=== PATIENT | male | born 1945 | race Caucasian/White ===

== ENCOUNTER 2024-05-27 18:05 | Emergency (ER) | payer OTHER ==
--- OUTSIDE RECORDS SUMMARY | 2024-05-27 18:18 | XMS REPORT | Continuity of Care Document ---
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 Inhale 0.63 mg 3 (three) times daily as needed for Wheezing or Shortness of Breath. [facility] ipratropium 0.02 % nebulizer solution 01-16 00:00: 00 Yes [id number] USE 1 VIAL VIA NEBULIZER EVERY 4 HOURS NEEDED FOR WHEEZING OR SHORTNESS OF BREATH [facility] 01-16 00:00: 00 11-03 00:00 :00 No [id number] Pt needs nebulizer accessory, please provide what he needs. rod have him bring in the machine to show you which part he needs. [facility] Nebulizer Accessories Kit 12-12 00:00: 00 Yes [id number] Use as directed [facility] Nebulizer Accessories Kit 12-12 00:00: 00 Yes [id number] Use as directed [facility] atorvastati n 20 mg tablet 09-23 00:00: 00 06-21 00:00 :00 No [id number] 9100 20mg Take 1 tablet by mouth daily. [facility] apixaban 5 mg tablet 09-23 00:00: 00 01-09 00:00 :00 No [id number] 5mg Take 1 tablet by mouth 2 (two) times daily. Indication s: atrial fibrillati on, heart failure [facility] sotaloL 80 mg tablet 09-14 00:00: 00 01-09 00:00 :00 No [id number] 40mg Take 0.5 tablets by mouth every 12 (twelve) hours. [facility] tamsulosin 0.4 mg 24 hr capsule 2-08 00:00: 00 12-01 00:00 :00 No [id number] .8mg Take 2 capsules by mouth at bedtime. [facility] umeclidinmanuelu m (INCRUSE ELLIPTA) 62.5 mcg/actuati on DsDv - 00:00: 00 08-25 00:00 :00 No [id number] 1{puff} Take 1 Puff by mouth daily. [facility] albuterol (VENTOLIN HFA) 90 mcg/actuati on inhaler 07-27 00:00: 00 07-31 00:00 :00 No [id number] 1{puff} Inhale 1 Puff every 6 (six) hours as needed for Wheezing or Shortness of Breath. DX: J42 [facility] nortriptyli ne 75 mg capsule 07-27 00:00: 00 07-31 00:00 :00 No [id number] TAKE ONE CAPSULE BY MOUTH AT BEDTIME [facility] furosemide 40 mg tablet 03-02 00:00: 00 06-09 00:00 :00 No [id number] 60mg Take 1.5 tablets by mouth daily. [facility] fluticasone propionate (FLONASE) 50 mcg/actuati on nasal spray 02-22 00:00: 00 12-01 00:00 :00 No [id number] 2{spray } Use 2 Sprays in each nostril daily. [facility] IPRATROPIUM 0.02 % nebulizer solution 09-16 00:00: 00 01-16 00:00 :00 No [id number] USE 1 VIAL VIA NEBULIZER EVERY 4 HOURS NEEDED FOR WHEEZING OR SHORTNESS OF BREATH [facility] IBUPROFEN 600 mg tablet 09-16 00:00: 00 12-01 00:00 :00 No [id number] TAKE 1 TABLET BY MOUTH EVERY 6 HOURS NEEDED FOR PAIN (SCALE 4-6) [facility] albuterol 2.5 mg /3 mL (0.083 %) nebulizer solution 08-19 00:00: 00 01-24 00:00 :00 No [id number] 2.5mg Inhale 3 mL every 4 (four) hours as needed for Wheezing or Shortness of Breath. [facility] budesonide 0.5 mg/2 mL nebulizer solution 2018-07 0 00:00: 00 Yes [id number] 1mg Inhale 4 mL daily. [facility] fluticasone 500 mcg-salmete rol 50 mcg/dose blistr powdr for inhalation 02-05 00:00: 00 Yes 1mcg/do se Umesh Melchor Ventolin HFA 90 mcg/actuati on aerosol inhaler 02-05 00:00: 00 Yes 1mcg/ac tuation Umesh Melchor mupirocin 2 % topical ointment 02-05 00:00: 00 Yes 1% Umesh Melchor Dose Unknown 02-05 00:00: 00 Yes Umesh Melchor amiodarone 200 mg tablet 02-05 00:00: 00 Yes 1mg Umesh Melchor atorvastati n 20 mg tablet 02-05 00:00: 00 Yes 1mg Umesh Melchor furosemide 40 mg tablet 02-05 00:00: 00 Yes 1mg Umesh Melchor nortriptyli ne 75 mg capsule 02-05 00:00: 00 Yes 1mg Umesh Melchor tamsulosin 0.4 mg capsule 02-05 00:00: 00 Yes 1mg Umesh Melchor docusate 100 mg capsule 09-05 00:00: 00 Yes 100mg Take 1 capsule by mouth 2 (two) times daily. [facility] [place] [facility] [place] 00:00: 00 Yes [id number] [facility] Nic Patel Long, [facility] 2009-07 00:00: 00 11-03 00:00 :00 No [id number] [facility] Immunizations Ordered Immunization Name Filled Immunization Name Date Status Comments Source Influenza Virus Vaccine,quad Im,preserve Free 65+ (FLUAD) 2023-09-27 00:00:[address] [facility] SARS-COV-2 COVID 19 SCOTT SUCROSE VACCINE 12+, [id number], 0.3 ML (30 MCG), IM PFIZER (GUTIÉRREZ TOP) 2023-09-27 00:00:00 Completed SARS-COV-2 COVID-19 VACCINE 12 YRS+, BIVALENT 0.5ML, IM, (MODERNA BOOSTER) 2022-09-03 00:00:[address] [facility] SARS-COV-2 COVID-19 VACCINE 12 YRS+, BIVALENT 0.5ML, IM, (MODERNA BOOSTER) 2022-09-03 00:00:[address] [facility] SARS-COV-2 COVID-19 VACCINE 12 YRS+, BIVALENT 0.5ML, IM, (MODERNA BOOSTER) 2022-09-03 00:00:[address] [facility] SARS-COV-2 COVID-19 VACCINE 12 YRS+, BIVALENT 0.5ML, IM, (MODERNA BOOSTER) 2022-09-03 00:00:[address] [facility] SARS-COV-2 COVID-19 VACCINE 12 YRS+, BIVALENT 0.5ML, IM, (MODERNA BOOSTER) 2022-09-03 00:00:[address] [facility] SARS-COV-2 COVID-19 VACCINE 12 YRS+, BIVALENT 0.5ML, IM, (MODERNA BOOSTER) 2022-09-03 00:00:[address] [facility] SARS-COV-2 COVID-19 VACCINE 12 YRS+, BIVALENT 0.5ML, IM, (MODERNA) 2022-09-03 00:00:[address] [facility] SARS-COV-2 COVID-19 VACCINE 12 YRS+, BIVALENT 0.5ML, IM, (MODERNA-BLUE TOP) 2022-09-03 00:00:[address] [facility] SARS-COV-2 COVID-19 VACCINE 12 YRS+, BIVALENT 0.5ML, IM, (MODERNA-BLUE TOP) 2022-09-03 00:00:[address] [facility] SARS-COV-2 COVID-19 VACCINE 12 YRS+, BIVALENT 0.5ML, IM, (MODERNA-BLUE TOP) 2022-09-03 00:00:[address] [facility] SARS-COV-2 COVID-19 VACCINE 12 YRS+, BIVALENT 0.5ML, IM, (MODERNA-BLUE TOP) 2022-09-03 00:00:[address] [facility] SARS-COV-2 COVID-19 VACCINE 12 YRS+, BIVALENT 0.5ML, IM, (MODERNA-BLUE TOP) 2022-09-03 00:00:[address] [facility] SARS-COV-2 COVID-19 VACCINE 12 YRS+, BIVALENT 0.5ML, IM, (MODERNA-BLUE TOP) 2022-09-03 00:00:[address] [facility] SARS-COV-2 COVID-19 VACCINE 12 YRS+, BIVALENT 0.5ML, IM, (MODERNA-BLUE TOP) 2022-09-03 00:00:[address] [facility] SARS-COV-2 COVID-19 VACCINE 12 YRS+, BIVALENT 0.5ML, IM, (MODERNA-BLUE TOP) 2022-09-03 00:00:[address] [facility] SARS-COV-2 COVID-19 VACCINE 12 YRS+, BIVALENT 0.5ML, IM, (MODERNA-BLUE TOP) 2022-09-03 00:00:[address] [facility] SARS-COV-2 COVID-19 VACCINE 12 YRS+, BIVALENT 0.5ML, IM, (MODERNA-BLUE TOP) 2022-09-03 00:00:[address] [facility] SARS-COV-2 COVID-19 VACCINE 12 YRS+, BIVALENT 0.5ML, IM, (MODERNA-BLUE TOP) 2022-09-03 00:00:[address] [facility] Influenza Virus Vaccine,quad Im,preserve Free 652022-04-03 00:00:[address] [facility] Influenza Virus Vaccine,quad Im,preserve Free 652022-04-03 00:00:[address] [facility] Influenza Virus Vaccine,quad Im,preserve Free 65+ 2022-04-03 00:00:[address] [facility] Influenza Virus Vaccine,quad Im,preserve Free 652022-04-03 00:00:[address] [facility] Influenza Virus Vaccine,quad Im,preserve Free 652022-04-03 00:00:[address] [facility] Influenza Virus Vaccine,quad Im,preserve Free 652022-04-03 00:00:[address] [facility] Influenza Virus Vaccine,quad Im,preserve Free 652022-04-03 00:00:[address] [facility] Influenza Virus Vaccine,quad Im,preserve Free 65+ 2022-04-03 00:00:[address] [facility] Influenza Virus Vaccine,quad Im,preserve Free 652022-04-03 00:00:[address] [facility] Influenza Virus Vaccine,quad Im,preserve Free 2022-04-03 00:00:[address] [facility] Influenza Virus Vaccine,quad Im,preserve Free 652022-04-03 00:00:[address] [facility] Influenza Virus Vaccine,quad Im,preserve Free 2022-04-03 00:00:[address] [facility] Influenza Virus Vaccine,quad Im,preserve Free 652022-04-03 00:00:[address] [facility] Influenza Virus Vaccine,quad Im,preserve Free 652022-04-03 00:00:[address] [facility] Influenza Virus Vaccine,quad Im,preserve Free 652022-04-03 00:00:[address] [facility] Influenza Virus Vaccine,quad Im,preserve Free 2022-04-03 00:00:[address] [facility] Influenza Virus Vaccine,quad Im,preserve Free 2022-04-03 00:00:[address] [facility] Influenza Virus Vaccine,quad Im,preserve Free 2022-04-03 00:00:[address] [facility] Influenza Virus Vaccine,quad Im,preserve Free 2022-04-03 00:00:[address] [facility] Influenza Virus Vaccine,quad Im,preserve Free 2022-04-03 00:00:[address] [facility] Influenza Virus Vaccine,quad Im,preserve Free 2022-04-03 00:00:[address] [facility] Influenza Virus Vaccine,quad Im,preserve Free 2022-04-03 00:00:[address] [facility] Influenza Virus Vaccine,quad Im,preserve Free 2022-04-03 00:00:[address] [facility] Influenza Virus Vaccine,quad Im,preserve Free 2022-04-03 00:00:[address] [facility] Influenza Virus Vaccine,quad Im,preserve Free 652022-04-03 00:00:[address] [facility] Influenza Virus Vaccine,quad Im,preserve Free 2022-04-03 00:00:[address] [facility] Influenza Virus Vaccine,quad Im,preserve Free 652022-04-03 00:00:[address] [facility] Influenza Virus Vaccine,quad Im,preserve Free 65+ 2022-04-03 00:00:[address] [facility] Influenza Virus Vaccine,quad Im,preserve Free 65+ 2022-04-03 00:00:[address] [facility] Influenza Virus Vaccine,quad Im,preserve Free 65+ 2022-04-03 00:00:[address] [facility] Influenza Virus Vaccine,quad Im,preserve Free 65+ 2022-04-03 00:00:[address] [facility] Influenza Virus Vaccine,quad Im,preserve Free 65+ 2022-04-03 00:00:[address] [facility] Influenza Virus Vaccine,quad Im,preserve Free 65+ 2022-04-03 00:00:[address] [facility] Influenza Virus Vaccine,quad Im,preserve Free 65+ 2022-04-03 00:00:[address] [facility] Influenza Virus Vaccine,quad Im,preserve Free 65+ (FLUAD) 2022-04-03 00:00:[address] [facility] Influenza Virus Vaccine,quad Im,preserve Free 65+ (FLUAD) 2022-04-03 00:00:[address] [facility] Influenza Virus Vaccine,quad Im,preserve Free 65+ (FLUAD) 2022-04-03 00:00:00 Completed SARS-COV-2 COVID-19 MODERNA 0.25ML BOOSTER VACCINE 2022-02-27 00:00:[address] [facility] SARS-COV-2 COVID-19 MODERNA 0.25ML BOOSTER VACCINE 2022-02-27 00:00:[address] [facility] SARS-COV-2 COVID-19 MODERNA 0.25ML BOOSTER VACCINE 2022-02-27 00:00:[address] [facility] SARS-COV-2 COVID-19 MODERNA 0.25ML BOOSTER VACCINE 2022-02-27 00:00:[address] [facility] SARS-COV-2 COVID-19 MODERNA 0.25ML BOOSTER VACCINE 2022-02-27 00:00:[address] [facility] SARS-COV-2 COVID-19 MODERNA 0.25ML BOOSTER VACCINE 2022-02-27 00:00:[address] [facility] SARS-COV-2 COVID-19 MODERNA 0.25ML BOOSTER VACCINE 2022-02-27 00:00:[address] [facility] SARS-COV-2 COVID-19 MODERNA 0.25ML BOOSTER VACCINE 2022-02-27 00:00:[address] [facility] SARS-COV-2 COVID-19 MODERNA 0.25ML BOOSTER VACCINE 2022-02-27 00:00:[address] [facility] SARS-COV-2 COVID-19 MODERNA 0.25ML BOOSTER VACCINE 2022-02-27 00:00:[address] [facility] SARS-COV-2 COVID-19 MODERNA 0.25ML BOOSTER VACCINE 2022-02-27 00:00:[address] [facility] SARS-COV-2 COVID-19 MODERNA 0.25ML BOOSTER VACCINE 2022-02-27 00:00:[address] [facility] SARS-COV-2 COVID-19 MODERNA 0.25ML BOOSTER VACCINE 2022-02-27 00:00:[address] [facility] SARS-COV-2 COVID-19 MODERNA 0.25ML BOOSTER VACCINE 2022-02-27 00:00:[address] [facility] SARS-COV-2 COVID-19 MODERNA 0.25ML BOOSTER VACCINE 2022-02-27 00:00:[address] [facility] SARS-COV-2 COVID-19 MODERNA 0.25ML BOOSTER VACCINE 2022-02-27 00:00:[address] [facility] SARS-COV-2 COVID-19 MODERNA 0.25ML BOOSTER VACCINE 2022-02-27 00:00:[address] [facility] SARS-COV-2 COVID-19 MODERNA 0.25ML BOOSTER VACCINE 2022-02-27 00:00:[address] [facility] SARS-COV-2 COVID-19 MODERNA 0.25ML BOOSTER VACCINE 2022-02-27 00:00:[address] [facility] SARS-COV-2 COVID-19 MODERNA 0.25ML BOOSTER VACCINE 2022-02-27 00:00:[address] [facility] SARS-COV-2 COVID-19 MODERNA 0.25ML BOOSTER VACCINE 2022-02-27 00:00:[address] [facility] SARS-COV-2 COVID-19 MODERNA 0.25ML BOOSTER VACCINE 2022-02-27 00:00:[address] [facility] SARS-COV-2 COVID-19 MODERNA 0.25ML BOOSTER VACCINE 2022-02-27 00:00:[address] [facility] SARS-COV-2 COVID-19 MODERNA 0.25ML BOOSTER VACCINE 2022-02-27 00:00:[address] [facility] SARS-COV-2 COVID-19 MODERNA 0.25ML BOOSTER VACCINE 2022-02-27 00:00:[address] [facility] SARS-COV-2 COVID-19 MODERNA 0.25ML BOOSTER VACCINE 2022-02-27 00:00:[address] [facility] SARS-COV-2 COVID-19 MODERNA 0.25ML BOOSTER VACCINE 2022-02-27 00:00:[address] [facility] SARS-COV-2 COVID-19 MODERNA 0.25ML BOOSTER VACCINE 2022-02-27 00:00:[address] [facility] SARS-COV-2 COVID-19 MODERNA 0.25ML BOOSTER VACCINE 2022-02-27 00:00:[address] [facility] SARS-COV-2 COVID-19 MODERNA 0.25ML BOOSTER VACCINE 2022-02-27 00:00:[address] [facility] SARS-COV-2 COVID-19 MODERNA 0.25ML BOOSTER VACCINE 2022-02-27 00:00:[address] [facility] SARS-COV-2 COVID-19 MODERNA 0.25ML BOOSTER VACCINE 2022-02-27 00:00:[address] [facility] SARS-COV-2 COVID-19 MODERNA 0.25ML BOOSTER VACCINE 2022-02-27 00:00:[address] [facility] SARS-COV-2 COVID-19 MODERNA 0.25ML BOOSTER VACCINE 2022-02-27 00:00:[address] [facility] SARS-COV-2 COVID-19 MODERNA 0.25ML BOOSTER VACCINE 2022-02-27 00:00:[address] [facility] SARS-COV-2 COVID-19 MODERNA 0.25ML BOOSTER VACCINE 2022-02-27 00:00:[address] [facility] SARS-COV-2 COVID-19 MODERNA 0.25ML BOOSTER VACCINE 2022-02-27 00:00:[address] [facility] SARS-COV-2 COVID-19 MODERNA 0.25ML BOOSTER VACCINE 2022-02-27 00:00:[address] [facility] SARS-COV-2 COVID-19 MODERNA 0.25ML BOOSTER VACCINE 2022-02-27 00:00:[address] [facility] SARS-COV-2 COVID-19 MODERNA 0.25ML BOOSTER VACCINE 2022-02-27 00:00:[address] [facility] SARS-COV-2 COVID-19 MODERNA 0.25ML BOOSTER VACCINE 2022-02-27 00:00:[address] [facility] SARS-COV-2 COVID-19 MODERNA 0.25ML BOOSTER VACCINE 2022-02-27 00:00:[address] [facility] SARS-COV-2 COVID-19 MODERNA 0.25ML BOOSTER VACCINE 2022-02-27 00:00:[address] [facility] SARS-COV-2 COVID-19 MODERNA 0.25ML BOOSTER VACCINE 2022-02-27 00:00:[address] [facility] SARS-COV-2 COVID-19 MODERNA 0.25ML BOOSTER VACCINE 2022-02-27 00:00:[address] [facility] SARS-COV-2 COVID-19 MODERNA 0.25ML BOOSTER VACCINE 2022-02-27 00:00:[address] [facility] SARS-COV-2 COVID-19 MODERNA 0.25ML BOOSTER VACCINE 2022-02-27 00:00:[address] [facility] Influenza Virus Vaccine,quad Im,preserve Free 2021-09-11 00:00:[address] [facility] Influenza Virus Vaccine,quad Im,preserve Free 2021-09-11 00:00:[address] [facility] Influenza Virus Vaccine,quad Im,preserve Free + 2021-09-11 00:00:[address] [facility] Influenza Virus Vaccine,quad Im,preserve Free + 2021-09-11 00:00:[address] [facility] Influenza Virus Vaccine,quad Im,preserve Free 652021-09-11 00:00:[address] [facility] Influenza Virus Vaccine,quad Im,preserve Free 652021-09-11 00:00:[address] [facility] Influenza Virus Vaccine,quad Im,preserve Free 652021-09-11 00:00:[address] [facility] Influenza Virus Vaccine,quad Im,preserve Free 652021-09-11 00:00:[address] [facility] Influenza Virus Vaccine,quad Im,preserve Free 652021-09-11 00:00:[address] [facility] Influenza Virus Vaccine,quad Im,preserve Free 652021-09-11 00:00:[address] [facility] Influenza Virus Vaccine,quad Im,preserve Free 652021-09-11 00:00:[address] [facility] Influenza Virus Vaccine,quad Im,preserve Free 652021-09-11 00:00:[address] [facility] Influenza Virus Vaccine,quad Im,preserve Free 2021-09-11 00:00:[address] [facility] Influenza Virus Vaccine,quad Im,preserve Free 652021-09-11 00:00:[address] [facility] Influenza Virus Vaccine,quad Im,preserve Free 652021-09-11 00:00:[address] [facility] Influenza Virus Vaccine,quad Im,preserve Free 652021-09-11 00:00:[address] [facility] Influenza Virus Vaccine,quad Im,preserve Free 652021-09-11 00:00:[address] [facility] Influenza Virus Vaccine,quad Im,preserve Free 652021-09-11 00:00:[address] [facility] Influenza Virus Vaccine,quad Im,preserve Free 652021-09-11 00:00:[address] [facility] Influenza Virus Vaccine,quad Im,preserve Free 652021-09-11 00:00:[address] [facility] Influenza Virus Vaccine,quad Im,preserve Free 652021-09-11 00:00:[address] [facility] Influenza Virus Vaccine,quad Im,preserve Free 652021-09-11 00:00:[address] [facility] Influenza Virus Vaccine,quad Im,preserve Free 652021-09-11 00:00:[address] [facility] Influenza Virus Vaccine,quad Im,preserve Free 652021-09-11 00:00:[address] [facility] Influenza Virus Vaccine,quad Im,preserve Free 65+ 2021-09-11 00:00:[address] [facility] Influenza Virus Vaccine,quad Im,preserve Free 652021-09-11 00:00:[address] [facility] Influenza Virus Vaccine,quad Im,preserve Free 652021-09-11 00:00:[address] [facility] Influenza Virus Vaccine,quad Im,preserve Free 652021-09-11 00:00:[address] [facility] Influenza Virus Vaccine,quad Im,preserve Free 652021-09-11 00:00:[address] [facility] Influenza Virus Vaccine,quad Im,preserve Free 652021-09-11 00:00:[address] [facility] Influenza Virus Vaccine,quad Im,preserve Free 2021-09-11 00:00:[address] [facility] Influenza Virus Vaccine,quad Im,preserve Free 652021-09-11 00:00:[address] [facility] Influenza Virus Vaccine,quad Im,preserve Free 652021-09-11 00:00:[address] [facility] Influenza Virus Vaccine,quad Im,preserve Free 652021-09-11 00:00:[address] [facility] Influenza Virus Vaccine,quad Im,preserve Free 652021-09-11 00:00:[address] [facility] Influenza Virus Vaccine,quad Im,preserve Free 652021-09-11 00:00:[address] [facility] Influenza Virus Vaccine,quad Im,preserve Free 652021-09-11 00:00:[address] [facility] Influenza Virus Vaccine,quad Im,preserve Free 652021-09-11 00:00:[address] [facility] Influenza Virus Vaccine,quad Im,preserve Free 652021-09-11 00:00:[address] [facility] Influenza Virus Vaccine,quad Im,preserve Free 652021-09-11 00:00:[address] [facility] Influenza Virus Vaccine,quad Im,preserve Free 65+ 2021-09-11 00:00:[address] [facility] Influenza Virus Vaccine,quad Im,preserve Free 65+ 2021-09-11 00:00:[address] [facility] Influenza Virus Vaccine,quad Im,preserve Free 65+ 2021-09-11 00:00:[address] [facility] Influenza Virus Vaccine,quad Im,preserve Free 65+ 2021-09-11 00:00:[address] [facility] Influenza Virus Vaccine,quad Im,preserve Free 65+ 2021-09-11 00:00:[address] [facility] Influenza Virus Vaccine,quad Im,preserve Free 65+ 2021-09-11 00:00:[address] [facility] Influenza Virus Vaccine,quad Im,preserve Free 65+ (FLUAD) 2021-09-11 00:00:[address] [facility] Influenza Virus Vaccine,quad Im,preserve Free 65+ (FLUAD) 2021-09-11 00:00:[address] [facility] Influenza Virus Vaccine,quad Im,preserve Free 65+ (FLUAD) 2021-09-11 00:00:[address] [facility] SARS-COV-2 COVID-19 MODERNA 0.25ML BOOSTER VACCINE 2021-05-08 00:00:[address] [facility] SARS-COV-2 COVID-19 MODERNA 0.25ML BOOSTER VACCINE 2021-05-08 00:00:[address] [facility] SARS-COV-2 COVID-19 MODERNA 0.25ML BOOSTER VACCINE 2021-05-08 00:00:[address] [facility] SARS-COV-2 COVID-19 MODERNA 0.25ML BOOSTER VACCINE 2021-05-08 00:00:[address] [facility] SARS-COV-2 COVID-19 MODERNA 0.25ML BOOSTER VACCINE 2021-05-08 00:00:[address] [facility] SARS-COV-2 COVID-19 MODERNA 0.25ML BOOSTER VACCINE 2021-05-08 00:00:[address] [facility] SARS-COV-2 COVID-19 MODERNA 0.25ML BOOSTER VACCINE 2021-05-08 00:00:[address] [facility] SARS-COV-2 COVID-19 MODERNA 0.25ML BOOSTER VACCINE 2021-05-08 00:00:[address] [facility] SARS-COV-2 COVID-19 MODERNA 0.25ML BOOSTER VACCINE 2021-05-08 00:00:[address] [facility] SARS-COV-2 COVID-19 MODERNA 0.25ML BOOSTER VACCINE 2021-05-08 00:00:[address] [facility] SARS-COV-2 COVID-19 MODERNA 0.25ML BOOSTER VACCINE 2021-05-08 00:00:[address] [facility] SARS-COV-2 COVID-19 MODERNA 0.25ML BOOSTER VACCINE 2021-05-08 00:00:[address] [facility] SARS-COV-2 COVID-19 MODERNA 0.25ML BOOSTER VACCINE 2021-05-08 00:00:[address] [facility] SARS-COV-2 COVID-19 MODERNA 0.25ML BOOSTER VACCINE 2021-05-08 00:00:[address] [facility] SARS-COV-2 COVID-19 MODERNA 0.25ML BOOSTER VACCINE 2021-05-08 00:00:[address] [facility] SARS-COV-2 COVID-19 MODERNA 0.25ML BOOSTER VACCINE 2021-05-08 00:00:[address] [facility] SARS-COV-2 COVID-19 MODERNA 0.25ML BOOSTER VACCINE 2021-05-08 00:00:[address] [facility] SARS-COV-2 COVID-19 MODERNA 0.25ML BOOSTER VACCINE 2021-05-08 00:00:[address] [facility] SARS-COV-2 COVID-19 MODERNA 0.25ML BOOSTER VACCINE 2021-05-08 00:00:[address] [facility] SARS-COV-2 COVID-19 MODERNA 0.25ML BOOSTER VACCINE 2021-05-08 00:00:[address] [facility] SARS-COV-2 COVID-19 MODERNA 0.25ML BOOSTER VACCINE 2021-05-08 00:00:[address] [facility] SARS-COV-2 COVID-19 MODERNA 0.25ML BOOSTER VACCINE 2021-05-08 00:00:[address] [facility] SARS-COV-2 COVID-19 MODERNA 0.25ML BOOSTER VACCINE 2021-05-08 00:00:[address] [facility] SARS-COV-2 COVID-19 MODERNA 0.25ML BOOSTER VACCINE 2021-05-08 00:00:[address] [facility] SARS-COV-2 COVID-19 MODERNA 0.25ML BOOSTER VACCINE 2021-05-08 00:00:[address] [facility] SARS-COV-2 COVID-19 MODERNA 0.25ML BOOSTER VACCINE 2021-05-08 00:00:[address] [facility] SARS-COV-2 COVID-19 MODERNA 0.25ML BOOSTER VACCINE 2021-05-08 00:00:[address] [facility] SARS-COV-2 COVID-19 MODERNA 0.25ML BOOSTER VACCINE 2021-05-08 00:00:[address] [facility] SARS-COV-2 COVID-19 MODERNA 0.25ML BOOSTER VACCINE 2021-05-08 00:00:[address] [facility] SARS-COV-2 COVID-19 MODERNA 0.25ML BOOSTER VACCINE 2021-05-08 00:00:[address] [facility] SARS-COV-2 COVID-19 MODERNA 0.25ML BOOSTER VACCINE 2021-05-08 00:00:[address] [facility] SARS-COV-2 COVID-19 MODERNA 0.25ML BOOSTER VACCINE 2021-05-08 00:00:[address] [facility] SARS-COV-2 COVID-19 MODERNA 0.25ML BOOSTER VACCINE 2021-05-08 00:00:[address] [facility] SARS-COV-2 COVID-19 MODERNA 0.25ML BOOSTER VACCINE 2021-05-08 00:00:[address] [facility] SARS-COV-2 COVID-19 MODERNA 0.25ML BOOSTER VACCINE 2021-05-08 00:00:[address] [facility] SARS-COV-2 COVID-19 MODERNA 0.25ML BOOSTER VACCINE 2021-05-08 00:00:[address] [facility] SARS-COV-2 COVID-19 MODERNA 0.25ML BOOSTER VACCINE 2021-05-08 00:00:[address] [facility] SARS-COV-2 COVID-19 MODERNA 0.25ML BOOSTER VACCINE 2021-05-08 00:00:[address] [facility] SARS-COV-2 COVID-19 MODERNA 0.25ML BOOSTER VACCINE 2021-05-08 00:00:[address] [facility] SARS-COV-2 COVID-19 MODERNA 0.25ML BOOSTER VACCINE 2021-05-08 00:00:[address] [facility] SARS-COV-2 COVID-19 MODERNA 0.25ML BOOSTER VACCINE 2021-05-08 00:00:[address] [facility] SARS-COV-2 COVID-19 MODERNA 0.25ML BOOSTER VACCINE 2021-05-08 00:00:[address] [facility] SARS-COV-2 COVID-19 MODERNA 0.25ML BOOSTER VACCINE 2021-05-08 00:00:[address] [facility] SARS-COV-2 COVID-19 MODERNA 0.25ML BOOSTER VACCINE 2021-05-08 00:00:[address] [facility] SARS-COV-2 COVID-19 MODERNA 0.25ML BOOSTER VACCINE 2021-05-08 00:00:[address] [facility] SARS-COV-2 COVID-19 MODERNA 0.25ML BOOSTER VACCINE 2021-05-08 00:00:[address] [facility] SARS-COV-2 COVID-19 MODERNA 0.25ML BOOSTER VACCINE 2021-05-08 00:00:[address] [facility] SARS-COV-2 COVID-19 MODERNA 0.25ML BOOSTER VACCINE 2021-05-08 00:00:[address] [facility] SARS-COV-2 COVID-19 MODERNA 0.25ML BOOSTER VACCINE 2021-05-08 00:00:00 Completed SARS-COV-2 COVID-19 MODERNA VACCINE 2020-08-09 00:00:[address] [facility] SARS-COV-2 COVID-19 MODERNA VACCINE 2020-08-09 00:00:00 Completed [facility] SARS-COV-2 COVID-19 MODERNA VACCINE 2020-08-09 00:00:[address] [facility] SARS-COV-2 COVID-19 MODERNA 12+ YRS VACCINE 2020-08-09 00:00:[address] [facility] SARS-COV-2 COVID-19 MODERNA 12+ YRS VACCINE 2020-08-09 00:00:[address] [facility] SARS-COV-2 COVID-19 MODERNA 12+ YRS VACCINE 2020-08-09 00:00:[address] [facility] SARS-COV-2 COVID-19 MODERNA 12+ YRS VACCINE 2020-08-09 00:00:[address] [facility] SARS-COV-2 COVID-19 MODERNA 12+ YRS VACCINE 2020-08-09 00:00:[address] [facility] SARS-COV-2 COVID-19 MODERNA 12+ YRS VACCINE 2020-08-09 00:00:[address] [facility] SARS-COV-2 COVID-19 MODERNA 12+ YRS VACCINE 2020-08-09 00:00:[address] [facility] SARS-COV-2 COVID-19 MODERNA 12+ YRS VACCINE 2020-08-09 00:00:[address] [facility] SARS-COV-2 COVID-19 MODERNA 12+ YRS VACCINE 2020-08-09 00:00:[address] [facility] SARS-COV-2 COVID-19 MODERNA 12+ YRS VACCINE 2020-08-09 00:00:[address] [facility] SARS-COV-2 COVID-19 MODERNA 12+ YRS VACCINE 2020-08-09 00:00:[address] [facility] SARS-COV-2 COVID-19 MODERNA 12+ YRS VACCINE 2020-08-09 00:00:[address] [facility] SARS-COV-2 COVID-19 MODERNA 12+ YRS VACCINE 2020-08-09 00:00:[address] [facility] SARS-COV-2 COVID-19 MODERNA 12+ YRS VACCINE 2020-08-09 00:00:[address] [facility] SARS-COV-2 COVID-19 MODERNA 12+ YRS VACCINE 2020-08-09 00:00:[address] [facility] SARS-COV-2 COVID-19 MODERNA 12+ YRS VACCINE 2020-08-09 00:00:[address] [facility] SARS-COV-2 COVID-19 MODERNA 12+ YRS VACCINE 2020-08-09 00:00:[address] [facility] SARS-COV-2 COVID-19 MODERNA 12+ YRS VACCINE 2020-08-09 00:00:[address] [facility] SARS-COV-2 COVID-19 MODERNA 12+ YRS VACCINE 2020-08-09 00:00:[address] [facility] SARS-COV-2 COVID-19 MODERNA 12+ YRS VACCINE 2020-08-09 00:00:[address] [facility] SARS-COV-2 COVID-19 MODERNA 12+ YRS VACCINE 2020-08-09 00:00:[address] [facility] SARS-COV-2 COVID-19 MODERNA 12+ YRS VACCINE 2020-08-09 00:00:[address] [facility] SARS-COV-2 COVID-19 MODERNA 12+ YRS VACCINE 2020-08-09 00:00:[address] [facility] SARS-COV-2 COVID-19 MODERNA 12+ YRS VACCINE 2020-08-09 00:00:[address] [facility] SARS-COV-2 COVID-19 MODERNA 12+ YRS VACCINE 2020-08-09 00:00:[address] [facility] SARS-COV-2 COVID-19 MODERNA 12+ YRS VACCINE 2020-08-09 00:00:[address] [facility] SARS-COV-2 COVID-19 MODERNA 12+ YRS VACCINE 2020-08-09 00:00:[address] [facility] SARS-COV-2 COVID-19 MODERNA 12+ YRS VACCINE 2020-08-09 00:00:[address] [facility] SARS-COV-2 COVID-19 MODERNA 12+ YRS VACCINE 2020-08-09 00:00:[address] [facility] SARS-COV-2 COVID-19 MODERNA 12+ YRS VACCINE 2020-08-09 00:00:[address] [facility] SARS-COV-2 COVID-19 MODERNA 12+ YRS VACCINE 2020-08-09 00:00:[address] [facility] SARS-COV-2 COVID-19 MODERNA 12+ YRS VACCINE 2020-08-09 00:00:[address] [facility] SARS-COV-2 COVID-19 MODERNA 12+ YRS VACCINE 2020-08-09 00:00:[address] [facility] SARS-COV-2 COVID-19 MODERNA 12+ YRS VACCINE 2020-08-09 00:00:[address] [facility] SARS-COV-2 COVID-19 MODERNA 12+ YRS VACCINE 2020-08-09 00:00:[address] [facility] SARS-COV-2 COVID-19 MODERNA 12+ YRS VACCINE 2020-08-09 00:00:[address] [facility] SARS-COV-2 COVID-19 MODERNA 12+ YRS VACCINE 2020-08-09 00:00:[address] [facility] SARS-COV-2 COVID-19 MODERNA 12+ YRS VACCINE 2020-08-09 00:00:[address] [facility] SARS-COV-2 COVID-19 MODERNA 12+ YRS VACCINE 2020-08-09 00:00:[address] [facility] SARS-COV-2 COVID-19 MODERNA 12+ YRS VACCINE 2020-08-09 00:00:[address] [facility] SARS-COV-2 COVID-19 MODERNA 12+ YRS VACCINE 2020-08-09 00:00:[address] [facility] SARS-COV-2 COVID-19 MODERNA 12+ YRS VACCINE 2020-08-09 00:00:[address] [facility] SARS-COV-2 COVID-19 MODERNA 12+ YRS VACCINE 2020-08-09 00:00:[address] [facility] SARS-COV-2 COVID-19 MODERNA 12+ YRS VACCINE 2020-08-09 00:00:[address] [facility] SARS-COV-2 COVID-19 MODERNA 12+ YRS VACCINE 2020-08-09 00:00:[address] [facility] SARS-COV-2 COVID-19 MODERNA 12+ YRS VACCINE 2020-08-09 00:00:[address] [facility] SARS-COV-2 COVID-19 MODERNA VACCINE 2020-07-12 00:00:[address] [facility] SARS-COV-2 COVID-19 MODERNA VACCINE 2020-07-12 00:00:[address] [facility] SARS-COV-2 COVID-19 MODERNA VACCINE 2020-07-12 00:00:[address] [facility] SARS-COV-2 COVID-19 MODERNA 12+ YRS VACCINE 2020-07-12 00:00:[address] [facility] SARS-COV-2 COVID-19 MODERNA 12+ YRS VACCINE 2020-07-12 00:00:[address] [facility] SARS-COV-2 COVID-19 MODERNA 12+ YRS VACCINE 2020-07-12 00:00:[address] [facility] SARS-COV-2 COVID-19 MODERNA 12+ YRS VACCINE 2020-07-12 00:00:[address] [facility] SARS-COV-2 COVID-19 MODERNA 12+ YRS VACCINE 2020-07-12 00:00:[address] [facility] SARS-COV-2 COVID-19 MODERNA 12+ YRS VACCINE 2020-07-12 00:00:[address] [facility] SARS-COV-2 COVID-19 MODERNA 12+ YRS VACCINE 2020-07-12 00:00:[address] [facility] SARS-COV-2 COVID-19 MODERNA 12+ YRS VACCINE 2020-07-12 00:00:[address] [facility] SARS-COV-2 COVID-19 MODERNA 12+ YRS VACCINE 2020-07-12 00:00:[address] [facility] SARS-COV-2 COVID-19 MODERNA 12+ YRS VACCINE 2020-07-12 00:00:[address] [facility] SARS-COV-2 COVID-19 MODERNA 12+ YRS VACCINE 2020-07-12 00:00:[address] [facility] SARS-COV-2 COVID-19 MODERNA 12+ YRS VACCINE 2020-07-12 00:00:[address] [facility] SARS-COV-2 COVID-19 MODERNA 12+ YRS VACCINE 2020-07-12 00:00:[address] [facility] SARS-COV-2 COVID-19 MODERNA 12+ YRS VACCINE 2020-07-12 00:00:[address] [facility] SARS-COV-2 COVID-19 MODERNA 12+ YRS VACCINE 2020-07-12 00:00:[address] [facility] SARS-COV-2 COVID-19 MODERNA 12+ YRS VACCINE 2020-07-12 00:00:[address] [facility] SARS-COV-2 COVID-19 MODERNA 12+ YRS VACCINE 2020-07-12 00:00:[address] [facility] SARS-COV-2 COVID-19 MODERNA 12+ YRS VACCINE 2020-07-12 00:00:[address] [facility] SARS-COV-2 COVID-19 MODERNA 12+ YRS VACCINE 2020-07-12 00:00:[address] [facility] SARS-COV-2 COVID-19 MODERNA 12+ YRS VACCINE 2020-07-12 00:00:[address] [facility] SARS-COV-2 COVID-19 MODERNA 12+ YRS VACCINE 2020-07-12 00:00:[address] [facility] SARS-COV-2 COVID-19 MODERNA 12+ YRS VACCINE 2020-07-12 00:00:[address] [facility] SARS-COV-2 COVID-19 MODERNA 12+ YRS VACCINE 2020-07-12 00:00:[address] [facility] SARS-COV-2 COVID-19 MODERNA 12+ YRS VACCINE 2020-07-12 00:00:[address] [facility] SARS-COV-2 COVID-19 MODERNA 12+ YRS VACCINE 2020-07-12 00:00:[address] [facility] SARS-COV-2 COVID-19 MODERNA 12+ YRS VACCINE 2020-07-12 00:00:[address] [facility] SARS-COV-2 COVID-19 MODERNA 12+ YRS VACCINE 2020-07-12 00:00:[address] [facility] SARS-COV-2 COVID-19 MODERNA 12+ YRS VACCINE 2020-07-12 00:00:[address] [facility] SARS-COV-2 COVID-19 MODERNA 12+ YRS VACCINE 2020-07-12 00:00:[address] [facility] SARS-COV-2 COVID-19 MODERNA 12+ YRS VACCINE 2020-07-12 00:00:[address] [facility] SARS-COV-2 COVID-19 MODERNA 12+ YRS VACCINE 2020-07-12 00:00:[address] [facility] SARS-COV-2 COVID-19 MODERNA 12+ YRS VACCINE 2020-07-12 00:00:[address] [facility] SARS-COV-2 COVID-19 MODERNA 12+ YRS VACCINE 2020-07-12 00:00:[address] [facility] SARS-COV-2 COVID-19 MODERNA 12+ YRS VACCINE 2020-07-12 00:00:[address] [facility] SARS-COV-2 COVID-19 MODERNA 12+ YRS VACCINE 2020-07-12 00:00:[address] [facility] SARS-COV-2 COVID-19 MODERNA 12+ YRS VACCINE 2020-07-12 00:00:[address] [facility] SARS-COV-2 COVID-19 MODERNA 12+ YRS VACCINE 2020-07-12 00:00:[address] [facility] SARS-COV-2 COVID-19 MODERNA 12+ YRS VACCINE 2020-07-12 00:00:[address] [facility] SARS-COV-2 COVID-19 MODERNA 12+ YRS VACCINE 2020-07-12 00:00:[address] [facility] SARS-COV-2 COVID-19 MODERNA 12+ YRS VACCINE 2020-07-12 00:00:[address] [facility] SARS-COV-2 COVID-19 MODERNA 12+ YRS VACCINE 2020-07-12 00:00:[address] [facility] SARS-COV-2 COVID-19 MODERNA 12+ YRS VACCINE 2020-07-12 00:00:[address] [facility] SARS-COV-2 COVID-19 MODERNA 12+ YRS VACCINE 2020-07-12 00:00:[address] [facility] SARS-COV-2 COVID-19 MODERNA 12+ YRS VACCINE 2020-07-12 00:00:[address] [facility] SARS-COV-2 COVID-19 MODERNA 12+ YRS VACCINE 2020-07-12 00:00:[address] [facility] SARS-COV-2 COVID-19 MODERNA 12+ YRS VACCINE 2020-07-12 00:00:[address] [facility] Influenza High Dose Quad 2020-06-13 00:00:[address] [facility] Influenza High Dose Quad 2020-06-13 00:00:[address] [facility] Influenza High Dose Quad 2020-06-13 00:00:[address] [facility] Influenza High Dose Quad 2020-06-13 00:00:[address] [facility] Influenza High Dose Quad 2020-06-13 00:00:[address] [facility] Influenza High Dose Quad 2020-06-13 00:00:[address] [facility] Influenza High Dose Quad 2020-06-13 00:00:[address] [facility] Influenza High Dose Quad 2020-06-13 00:00:[address] [facility] Influenza High Dose Quad 2020-06-13 00:00:[address] [facility] Influenza High Dose Quad 2020-06-13 00:00:[address] [facility] Influenza High Dose Quad 2020-06-13 00:00:[address] [facility] Influenza High Dose Quad 2020-06-13 00:00:[address] [facility] Influenza High Dose Quad 2020-06-13 00:00:[address] [facility] Influenza High Dose Quad 2020-06-13 00:00:[address] [facility] Influenza High Dose Quad 2020-06-13 00:00:[address] [facility] Influenza High Dose Quad 2020-06-13 00:00:[address] [facility] Influenza High Dose Quad 2020-06-13 00:00:[address] [facility] Influenza High Dose Quad 2020-06-13 00:00:[address] [facility] Influenza High Dose Quad 2020-06-13 00:00:[address] [facility] Influenza High Dose Quad 2020-06-13 00:00:[address] [facility] Influenza High Dose Quad 2020-06-13 00:00:[address] [facility] Influenza High Dose Quad 2020-06-13 00:00:[address] [facility] Influenza High Dose Quad 2020-06-13 00:00:[address] [facility] Influenza High Dose Quad 2020-06-13 00:00:[address] [facility] Influenza High Dose Quad 2020-06-13 00:00:[address] [facility] Influenza High Dose Quad 2020-06-13 00:00:[address] [facility] Influenza High Dose Quad 2020-06-13 00:00:[address] [facility] Influenza High Dose Quad 2020-06-13 00:00:[address] [facility] Influenza High Dose Quad 2020-06-13 00:00:[address] [facility] Influenza High Dose Quad 2020-06-13 00:00:[address] [facility] Influenza High Dose Quad 2020-06-13 00:00:[address] [facility] Influenza High Dose Quad 2020-06-13 00:00:[address] [facility] Influenza High Dose Quad 2020-06-13 00:00:[address] [facility] Influenza High Dose Quad 2020-06-13 00:00:[address] [facility] Influenza High Dose Quad 2020-06-13 00:00:[address] [facility] Influenza High Dose Quad 2020-06-13 00:00:[address] [facility] Influenza High Dose Quad 2020-06-13 00:00:[address] [facility] Influenza High Dose Quad 2020-06-13 00:00:[address] [facility] Influenza High Dose Quad 2020-06-13 00:00:[address] [facility] Influenza High Dose Quad 2020-06-13 00:00:[address] [facility] Influenza High Dose Quad 2020-06-13 00:00:[address] [facility] Influenza High Dose Quad 2020-06-13 00:00:[address] [facility] Influenza High Dose Quad 2020-06-13 00:00:[address] [facility] Influenza High Dose Quad 2020-06-13 00:00:[address] [facility] Influenza High Dose Quad 2020-06-13 00:00:[address] [facility] Influenza High Dose Quad 2020-06-13 00:00:[address] [facility] Influenza High Dose Quad 2020-06-13 00:00:[address] [facility] Influenza High Dose Quad 2020-06-13 00:00:[address] [facility] Influenza High Dose Quad 2020-06-13 00:00:[address] [facility] Influenza High Dose 2019-06-09 00:00:[address] [facility] Influenza High Dose 2019-06-09 00:00:[address] [facility] Influenza High Dose 2019-06-09 00:00:[address] [facility] Influenza High Dose 2019-06-09 00:00:[address] [facility] Influenza High Dose 2019-06-09 00:00:[address] [facility] Influenza High Dose 2019-06-09 00:00:[address] [facility] Influenza High Dose 2019-06-09 00:00:[address] [facility] Influenza High Dose 2019-06-09 00:00:[address] [facility] Influenza High Dose 2019-06-09 00:00:[address] [facility] Influenza High Dose 2019-06-09 00:00:[address] [facility] Influenza High Dose 2019-06-09 00:00:[address] [facility] Influenza High Dose 2019-06-09 00:00:[address] [facility] Influenza High Dose 2019-06-09 00:00:[address] [facility] Influenza High Dose 2019-06-09 00:00:[address] [facility] Influenza High Dose 2019-06-09 00:00:[address] [facility] Influenza High Dose 2019-06-09 00:00:[address] [facility] Influenza High Dose 2019-06-09 00:00:[address] [facility] Influenza High Dose 2019-06-09 00:00:[address] [facility] Influenza High Dose 2019-06-09 00:00:[address] [facility] Influenza High Dose 2019-06-09 00:00:[address] [facility] Influenza High Dose 2019-06-09 00:00:[address] [facility] Influenza High Dose 2019-06-09 00:00:[address] [facility] Influenza High Dose 2019-06-09 00:00:[address] [facility] Influenza High Dose 2019-06-09 00:00:[address] [facility] Influenza High Dose 2019-06-09 00:00:[address] [facility] Influenza High Dose 2019-06-09 00:00:[address] [facility] Influenza High Dose 2019-06-09 00:00:[address] [facility] Influenza High Dose 2019-06-09 00:00:[address] [facility] Influenza High Dose 2019-06-09 00:00:[address] [facility] Influenza High Dose 2019-06-09 00:00:[address] [facility] Influenza High Dose 2019-06-09 00:00:[address] [facility] Influenza High Dose 2019-06-09 00:00:[address] [facility] Influenza High Dose 2019-06-09 00:00:[address] [facility] Influenza High Dose 2019-06-09 00:00:[address] [facility] Influenza High Dose 2019-06-09 00:00:[address] [facility] Influenza High Dose 2019-06-09 00:00:[address] [facility] Influenza High Dose 2019-06-09 00:00:[address] [facility] Influenza High Dose 2019-06-09 00:00:[address] [facility] Influenza High Dose 2019-06-09 00:00:[address] [facility] Influenza High Dose 2019-06-09 00:00:[address] [facility] Influenza High Dose 2019-06-09 00:00:[address] [facility] Influenza High Dose 2019-06-09 00:00:[address] [facility] Influenza High Dose 2019-06-09 00:00:[address] [facility] Influenza High Dose 2019-06-09 00:00:[address] [facility] Influenza High Dose 2019-06-09 00:00:[address] [facility] Influenza High Dose 2019-06-09 00:00:[address] [facility] Influenza High Dose 2019-06-09 00:00:[address] [facility] Influenza High Dose 2019-06-09 00:00:[address] [facility] Influenza, High-Dose, Trivalent, PF (FLUZONE) 2019-06-09 00:00:[address] [facility] TDAP (ADACEL) VACCINE 2019-02-09 00:00:[address] [facility] TDAP (ADACEL) VACCINE 2019-02-09 00:00:00 Completed [facility] TDAP (ADACEL) VACCINE 2019-02-09 00:00:00 Completed [facility] TDAP (ADACEL) VACCINE 2019-02-09 00:00:00 Completed [facility] TDAP (ADACEL) VACCINE 2019-02-09 00:00:[address] [facility] TDAP (ADACEL) VACCINE 2019-02-09 00:00:[address] [facility] TDAP (ADACEL) VACCINE 2019-02-09 00:00:00 Completed [facility] TDAP (ADACEL) VACCINE 2019-02-09 00:00:[address] [facility] TDAP (ADACEL) VACCINE 2019-02-09 00:00:[address] [facility] TDAP (ADACEL) VACCINE 2019-02-09 00:00:[address] [facility] TDAP (ADACEL) VACCINE 2019-02-09 00:00:[address] [facility] TDAP (ADACEL) VACCINE 2019-02-09 00:00:[address] [facility] TDAP (ADACEL) VACCINE 2019-02-09 00:00:[address] [facility] TDAP (ADACEL) VACCINE 2019-02-09 00:00:[address] [facility] TDAP (ADACEL) VACCINE 2019-02-09 00:00:[address] [facility] TDAP (ADACEL) VACCINE 2019-02-09 00:00:[address] [facility] TDAP (ADACEL) VACCINE 2019-02-09 00:00:00 Completed [facility] TDAP (ADACEL) VACCINE 2019-02-09 00:00:00 Completed [facility] TDAP (ADACEL) VACCINE 2019-02-09 00:00:00 Completed [facility] TDAP (ADACEL) VACCINE 2019-02-09 00:00:00 Completed [facility] TDAP (ADACEL) VACCINE 2019-02-09 00:00:[address] [facility] TDAP (ADACEL) VACCINE 2019-02-09 00:00:00 Completed [facility] TDAP (ADACEL) VACCINE 2019-02-09 00:00:[address] [facility] TDAP (ADACEL) VACCINE 2019-02-09 00:00:00 Completed [facility] TDAP (ADACEL) VACCINE 2019-02-09 00:00:00 Completed [facility] TDAP (ADACEL) VACCINE 2019-02-09 00:00:00 Completed [facility] TDAP (ADACEL) VACCINE 2019-02-09 00:00:00 Completed [facility] TDAP (ADACEL) VACCINE 2019-02-09 00:00:00 Completed [facility] TDAP (ADACEL) VACCINE 2019-02-09 00:00:00 Completed [facility] TDAP (ADACEL) VACCINE 2019-02-09 00:00:[address] [facility] TDAP (ADACEL) VACCINE 2019-02-09 00:00:[address] [facility] TDAP (ADACEL) VACCINE 2019-02-09 00:00:[address] [facility] TDAP (ADACEL) VACCINE 2019-02-09 00:00:[address] [facility] TDAP (ADACEL) VACCINE 2019-02-09 00:00:[address] [facility] TDAP (ADACEL) VACCINE 2019-02-09 00:00:[address] [facility] TDAP (ADACEL) VACCINE 2019-02-09 00:00:00 Completed [facility] TDAP (ADACEL) VACCINE 2019-02-09 00:00:[address] [facility] TDAP (ADACEL) VACCINE 2019-02-09 00:00:00 Completed [facility] TDAP (ADACEL) VACCINE 2019-02-09 00:00:00 Completed [facility] TDAP (ADACEL) VACCINE 2019-02-09 00:00:00 Completed [facility] TDAP (ADACEL) VACCINE 2019-02-09 00:00:00 Completed [facility] TDAP (ADACEL) VACCINE 2019-02-09 00:00:00 Completed [facility] TDAP (ADACEL) VACCINE 2019-02-09 00:00:00 Completed [facility] TDAP (ADACEL) VACCINE 2019-02-09 00:00:00 Completed [facility] TDAP (ADACEL) VACCINE 2019-02-09 00:00:[address] [facility] TDAP (ADACEL) VACCINE 2019-02-09 00:00:[address] [facility] TDAP (ADACEL) VACCINE 2019-02-09 00:00:[address] [facility] TDAP (ADACEL) VACCINE 2019-02-09 00:00:[address] [facility] TDAP (ADACEL) VACCINE 2019-02-09 00:00:[address] [facility] Pneumococcal Polysaccharide, PPSV23 (PNEUMOVAX) 2018-08-14 00:00:[address] [facility] Pneumococcal Polysaccharide, PPSV23 (PNEUMOVAX) 2018-08-14 00:00:[address] [facility] Pneumococcal Polysaccharide, PPSV23 (PNEUMOVAX) 2018-08-14 00:00:[address] [facility] Pneumococcal Polysaccharide, PPSV23 (PNEUMOVAX) 2018-08-14 00:00:[address] [facility] Pneumococcal Polysaccharide, PPSV23 (PNEUMOVAX) 2018-08-14 00:00:[address] [facility] Pneumococcal Polysaccharide, PPSV23 (PNEUMOVAX) 2018-08-14 00:00:[address] [facility] Pneumococcal Polysaccharide, PPSV23 (PNEUMOVAX) 2018-08-14 00:00:[address] [facility] Pneumococcal Polysaccharide, PPSV23 (PNEUMOVAX) 2018-08-14 00:00:[address] [facility] Pneumococcal Polysaccharide, PPSV23 (PNEUMOVAX) 2018-08-14 00:00:[address] [facility] Pneumococcal Polysaccharide, PPSV23 (PNEUMOVAX) 2018-08-14 00:00:[address] [facility] Pneumococcal Polysaccharide, PPSV23 (PNEUMOVAX) 2018-08-14 00:00:[address] [facility] Pneumococcal Polysaccharide, PPSV23 (PNEUMOVAX) 2018-08-14 00:00:[address] [facility] Pneumococcal Polysaccharide, PPSV23 (PNEUMOVAX) 2018-08-14 00:00:[address] [facility] Pneumococcal Polysaccharide, PPSV23 (PNEUMOVAX) 2018-08-14 00:00:[address] [facility] Pneumococcal Polysaccharide, PPSV23 (PNEUMOVAX) 2018-08-14 00:00:[address] [facility] Pneumococcal Polysaccharide, PPSV23 (PNEUMOVAX) 2018-08-14 00:00:[address] [facility] Pneumococcal Polysaccharide, PPSV23 (PNEUMOVAX) 2018-08-14 00:00:[address] [facility] Pneumococcal Polysaccharide, PPSV23 (PNEUMOVAX) 2018-08-14 00:00:[address] [facility] Pneumococcal Polysaccharide, PPSV23 (PNEUMOVAX) 2018-08-14 00:00:[address] [facility] Pneumococcal Polysaccharide, PPSV23 (PNEUMOVAX) 2018-08-14 00:00:[address] [facility] Pneumococcal Polysaccharide, PPSV23 (PNEUMOVAX) 2018-08-14 00:00:[address] [facility] Pneumococcal Polysaccharide, PPSV23 (PNEUMOVAX) 2018-08-14 00:00:[address] [facility] Pneumococcal Polysaccharide, PPSV23 (PNEUMOVAX) 2018-08-14 00:00:[address] [facility] Pneumococcal Polysaccharide, PPSV23 (PNEUMOVAX) 2018-08-14 00:00:[address] [facility] Pneumococcal Polysaccharide, PPSV23 (PNEUMOVAX) 2018-08-14 00:00:[address] [facility] Pneumococcal Polysaccharide, PPSV23 (PNEUMOVAX) 2018-08-14 00:00:[address] [facility] Pneumococcal Polysaccharide, PPSV23 (PNEUMOVAX) 2018-08-14 00:00:[address] [facility] Pneumococcal Polysaccharide, PPSV23 (PNEUMOVAX) 2018-08-14 00:00:[address] [facility] Pneumococcal Polysaccharide, PPSV23 (PNEUMOVAX) 2018-08-14 00:00:[address] [facility] Pneumococcal Polysaccharide, PPSV23 (PNEUMOVAX) 2018-08-14 00:00:[address] [facility] Pneumococcal Polysaccharide, PPSV23 (PNEUMOVAX) 2018-08-14 00:00:[address] [facility] Pneumococcal Polysaccharide, PPSV23 (PNEUMOVAX) 2018-08-14 00:00:[address] [facility] Pneumococcal Polysaccharide, PPSV23 (PNEUMOVAX) 2018-08-14 00:00:[address] [facility] Pneumococcal Polysaccharide, PPSV23 (PNEUMOVAX) 2018-08-14 00:00:[address] [facility] Pneumococcal Polysaccharide, PPSV23 (PNEUMOVAX) 2018-08-14 00:00:[address] [facility] Pneumococcal Polysaccharide, PPSV23 (PNEUMOVAX) 2018-08-14 00:00:[address] [facility] Pneumococcal Polysaccharide, PPSV23 (PNEUMOVAX) 2018-08-14 00:00:[address] [facility] Pneumococcal Polysaccharide, PPSV23 (PNEUMOVAX) 2018-08-14 00:00:[address] [facility] Pneumococcal Polysaccharide, PPSV23 (PNEUMOVAX) 2018-08-14 00:00:[address] [facility] Pneumococcal Polysaccharide, PPSV23 (PNEUMOVAX) 2018-08-14 00:00:[address] [facility] Pneumococcal Polysaccharide, PPSV23 (PNEUMOVAX) 2018-08-14 00:00:[address] [facility] Pneumococcal Polysaccharide, PPSV23 (PNEUMOVAX) 2018-08-14 00:00:[address] [facility] Pneumococcal Polysaccharide, PPSV23 (PNEUMOVAX) 2018-08-14 00:00:[address] [facility] Pneumococcal Polysaccharide, PPSV23 (PNEUMOVAX) 2018-08-14 00:00:[address] [facility] Pneumococcal Polysaccharide, PPSV23 (PNEUMOVAX) 2018-08-14 00:00:[address] [facility] Pneumococcal Polysaccharide, PPSV23 (PNEUMOVAX) 2018-08-14 00:00:[address] [facility] Pneumococcal Polysaccharide, PPSV23 (PNEUMOVAX) 2018-08-14 00:00:[address] [facility] Pneumococcal Polysaccharide, PPSV23 (PNEUMOVAX) 2018-08-14 00:00:[address] [facility] Pneumococcal Polysaccharide, PPSV23 (PNEUMOVAX) 2018-08-14 00:00:00 Completed [facility] High [facility]ose 2018-06-09 00:00:[address] [facility] Influenza High Dose 2018-06-09 00:00:[address] [facility] Influenza High Dose 2018-06-09 00:00:[address] [facility] Influenza High Dose 2018-06-09 00:00:[address] [facility] Influenza High Dose 2018-06-09 00:00:[address] [facility] Influenza High Dose 2018-06-09 00:00:[address] [facility] Influenza High Dose 2018-06-09 00:00:[address] [facility] Influenza High Dose 2018-06-09 00:00:[address] [facility] Influenza High Dose 2018-06-09 00:00:[address] [facility] Influenza High Dose 2018-06-09 00:00:[address] [facility] Influenza High Dose 2018-06-09 00:00:[address] [facility] Influenza High Dose 2018-06-09 00:00:[address] [facility] Influenza High Dose 2018-06-09 00:00:[address] [facility] Influenza High Dose 2018-06-09 00:00:[address] [facility] Influenza High Dose 2018-06-09 00:00:[address] [facility] Influenza High Dose 2018-06-09 00:00:[address] [facility] Influenza High Dose 2018-06-09 00:00:[address] [facility] Influenza High Dose 2018-06-09 00:00:[address] [facility] Influenza High Dose 2018-06-09 00:00:[address] [facility] Influenza High Dose 2018-06-09 00:00:[address] [facility] Influenza High Dose 2018-06-09 00:00:[address] [facility] Influenza High Dose 2018-06-09 00:00:[address] [facility] Influenza High Dose 2018-06-09 00:00:[address] [facility] Influenza High Dose 2018-06-09 00:00:[address] [facility] Influenza High Dose 2018-06-09 00:00:[address] [facility] Influenza High Dose 2018-06-09 00:00:[address] [facility] Influenza High Dose 2018-06-09 00:00:[address] [facility] Influenza High Dose 2018-06-09 00:00:[address] [facility] Influenza High Dose 2018-06-09 00:00:[address] [facility] Influenza High Dose 2018-06-09 00:00:[address] [facility] Influenza High Dose 2018-06-09 00:00:[address] [facility] Influenza High Dose 2018-06-09 00:00:[address] [facility] Influenza High Dose 2018-06-09 00:00:[address] [facility] Influenza High Dose 2018-06-09 00:00:[address] [facility] Influenza High Dose 2018-06-09 00:00:[address] [facility] Influenza High Dose 2018-06-09 00:00:[address] [facility] Influenza High Dose 2018-06-09 00:00:[address] [facility] Influenza High Dose 2018-06-09 00:00:[address] [facility] Influenza High Dose 2018-06-09 00:00:[address] [facility] Influenza High Dose 2018-06-09 00:00:[address] [facility] Influenza High Dose 2018-06-09 00:00:[address] [facility] Influenza High Dose 2018-06-09 00:00:[address] [facility] Influenza High Dose 2018-06-09 00:00:[address] [facility] Influenza High Dose 2018-06-09 00:00:[address] [facility] Influenza High Dose 2018-06-09 00:00:[address] [facility] Influenza High Dose 2018-06-09 00:00:[address] [facility] Influenza High Dose 2018-06-09 00:00:[address] [facility] Influenza High Dose 2018-06-09 00:00:[address] [facility] Influenza, High-Dose, Trivalent, PF (FLUZONE) 2018-06-09 00:00:[address] [facility] Influenza High Dose 2017-06-10 00:00:[address] [facility] Pneumococcal 13 Conjugate, PCV13 (Prevnar 13) 2017-06-10 00:00:[address] [facility] Influenza High Dose 2017-06-10 00:00:[address] [facility] Pneumococcal 13 Conjugate, PCV13 (Prevnar 13) 2017-06-10 00:00:[address] [facility] Influenza High Dose 2017-06-10 00:00:[address] [facility] Pneumococcal 13 Conjugate, PCV13 (Prevnar 13) 2017-06-10 00:00:[address] [facility] Influenza High Dose 2017-06-10 00:00:[address] [facility] Pneumococcal 13 Conjugate, PCV13 (Prevnar 13) 2017-06-10 00:00:[address] [facility] Influenza High Dose 2017-06-10 00:00:[address] [facility] Pneumococcal 13 Conjugate, PCV13 (Prevnar 13) 2017-06-10 00:00:[address] [facility] Influenza High Dose 2017-06-10 00:00:[address] [facility] Pneumococcal 13 Conjugate, PCV13 (Prevnar 13) 2017-06-10 00:00:[address] [facility] Influenza High Dose 2017-06-10 00:00:[address] [facility] Pneumococcal 13 Conjugate, PCV13 (Prevnar 13) 2017-06-10 00:00:[address] [facility] Influenza High Dose 2017-06-10 00:00:[address] [facility] Pneumococcal 13 Conjugate, PCV13 (Prevnar 13) 2017-06-10 00:00:[address] [facility] Influenza High Dose 2017-06-10 00:00:[address] [facility] Pneumococcal 13 Conjugate, PCV13 (Prevnar 13) 2017-06-10 00:00:[address] [facility] Influenza High Dose 2017-06-10 00:00:[address] [facility] Pneumococcal 13 Conjugate, PCV13 (Prevnar 13) 2017-06-10 00:00:[address] [facility] Influenza High Dose 2017-06-10 00:00:[address] [facility] Pneumococcal 13 Conjugate, PCV13 (Prevnar 13) 2017-06-10 00:00:[address] [facility] Influenza High Dose 2017-06-10 00:00:[address] [facility] Pneumococcal 13 Conjugate, PCV13 (Prevnar 13) 2017-06-10 00:00:[address] [facility] Influenza High Dose 2017-06-10 00:00:[address] [facility] Pneumococcal 13 Conjugate, PCV13 (Prevnar 13) 2017-06-10 00:00:[address] [facility] Influenza High Dose 2017-06-10 00:00:[address] [facility] Pneumococcal 13 Conjugate, PCV13 (Prevnar 13) 2017-06-10 00:00:[address] [facility] Influenza High Dose 2017-06-10 00:00:[address] [facility] Pneumococcal 13 Conjugate, PCV13 (Prevnar 13) 2017-06-10 00:00:[address] [facility] Influenza High Dose 2017-06-10 00:00:[address] [facility] Pneumococcal 13 Conjugate, PCV13 (Prevnar 13) 2017-06-10 00:00:[address] [facility] Influenza High Dose 2017-06-10 00:00:[address] [facility] Pneumococcal 13 Conjugate, PCV13 (Prevnar 13) 2017-06-10 00:00:[address] [facility] Influenza High Dose 2017-06-10 00:00:[address] [facility] Pneumococcal 13 Conjugate, PCV13 (Prevnar 13) 2017-06-10 00:00:[address] [facility] Influenza High Dose 2017-06-10 00:00:[address] [facility] Pneumococcal 13 Conjugate, PCV13 (Prevnar 13) 2017-06-10 00:00:[address] [facility] Influenza High Dose 2017-06-10 00:00:[address] [facility] Pneumococcal 13 Conjugate, PCV13 (Prevnar 13) 2017-06-10 00:00:[address] [facility] Influenza High Dose 2017-06-10 00:00:[address] [facility] Pneumococcal 13 Conjugate, PCV13 (Prevnar 13) 2017-06-10 00:00:[address] [facility] Influenza High Dose 2017-06-10 00:00:[address] [facility] Pneumococcal 13 Conjugate, PCV13 (Prevnar 13) 2017-06-10 00:00:[address] [facility] Influenza High Dose 2017-06-10 00:00:[address] [facility] Pneumococcal 13 Conjugate, PCV13 (Prevnar 13) 2017-06-10 00:00:[address] [facility] Influenza High Dose 2017-06-10 00:00:[address] [facility] Pneumococcal 13 Conjugate, PCV13 (Prevnar 13) 2017-06-10 00:00:[address] [facility] Influenza High Dose 2017-06-10 00:00:[address] [facility] Pneumococcal 13 Conjugate, PCV13 (Prevnar 13) 2017-06-10 00:00:[address] [facility] Influenza High Dose 2017-06-10 00:00:[address] [facility] Pneumococcal 13 Conjugate, PCV13 (Prevnar 13) 2017-06-10 00:00:[address] [facility] Influenza High Dose 2017-06-10 00:00:[address] [facility] Pneumococcal 13 Conjugate, PCV13 (Prevnar 13) 2017-06-10 00:00:[address] [facility] Influenza High Dose 2017-06-10 00:00:[address] [facility] Pneumococcal 13 Conjugate, PCV13 (Prevnar 13) 2017-06-10 00:00:[address] [facility] Influenza High Dose 2017-06-10 00:00:[address] [facility] Pneumococcal 13 Conjugate, PCV13 (Prevnar 13) 2017-06-10 00:00:[address] [facility] Influenza High Dose 2017-06-10 00:00:[address] [facility] Pneumococcal 13 Conjugate, PCV13 (Prevnar 13) 2017-06-10 00:00:[address] [facility] Influenza High Dose 2017-06-10 00:00:[address] [facility] Pneumococcal 13 Conjugate, PCV13 (Prevnar 13) 2017-06-10 00:00:[address] [facility] Influenza High Dose 2017-06-10 00:00:[address] [facility] Pneumococcal 13 Conjugate, PCV13 (Prevnar 13) 2017-06-10 00:00:[address] [facility] Influenza High Dose 2017-06-10 00:00:[address] [facility] Pneumococcal 13 Conjugate, PCV13 (Prevnar 13) 2017-06-10 00:00:[address] [facility] Influenza High Dose 2017-06-10 00:00:[address] [facility] Pneumococcal 13 Conjugate, PCV13 (Prevnar 13) 2017-06-10 00:00:[address] [facility] Influenza High Dose 2017-06-10 00:00:[address] [facility] Pneumococcal 13 Conjugate, PCV13 (Prevnar 13) 2017-06-10 00:00:[address] [facility] Influenza High Dose 2017-06-10 00:00:[address] [facility] Pneumococcal 13 Conjugate, PCV13 (Prevnar 13) 2017-06-10 00:00:[address] [facility] Influenza High Dose 2017-06-10 00:00:[address] [facility] Pneumococcal 13 Conjugate, PCV13 (Prevnar 13) 2017-06-10 00:00:[address] [facility] Influenza High Dose 2017-06-10 00:00:[address] [facility] Pneumococcal 13 Conjugate, PCV13 (Prevnar 13) 2017-06-10 00:00:[address] [facility] Influenza High Dose 2017-06-10 00:00:[address] [facility] Pneumococcal 13 Conjugate, PCV13 (Prevnar 13) 2017-06-10 00:00:[address] [facility] Influenza High Dose 2017-06-10 00:00:[address] [facility] Pneumococcal 13 Conjugate, PCV13 (Prevnar 13) 2017-06-10 00:00:[address] [facility] Influenza High Dose 2017-06-10 00:00:[address] [facility] Pneumococcal 13 Conjugate, PCV13 (Prevnar 13) 2017-06-10 00:00:[address] [facility] Influenza High Dose 2017-06-10 00:00:[address] [facility] Pneumococcal 13 Conjugate, PCV13 (Prevnar 13) 2017-06-10 00:00:[address] [facility] Influenza High Dose 2017-06-10 00:00:[address] [facility] Pneumococcal 13 Conjugate, PCV13 (Prevnar 13) 2017-06-10 00:00:[address] [facility] Influenza High Dose 2017-06-10 00:00:[address] [facility] Pneumococcal 13 Conjugate, PCV13 (Prevnar 13) 2017-06-10 00:00:[address] [facility] Influenza High Dose 2017-06-10 00:00:[address] [facility] Pneumococcal 13 Conjugate, PCV13 (Prevnar 13) 2017-06-10 00:00:[address] [facility] Influenza High Dose 2017-06-10 00:00:[address] [facility] Pneumococcal 13 Conjugate, PCV13 (Prevnar 13) 2017-06-10 00:00:[address] [facility] Influenza High Dose 2017-06-10 00:00:[address] [facility] Pneumococcal 13 Conjugate, PCV13 (Prevnar 13) 2017-06-10 00:00:[address] [facility] Influenza High Dose 2017-06-10 00:00:[address] [facility] Pneumococcal 13 Conjugate, PCV13 (Prevnar 13) 2017-06-10 00:00:[address] [facility] Influenza, High-Dose, Trivalent, PF (FLUZONE) 2017-06-10 00:00:[address] [facility] Pneumococcal 13 Conjugate, PCV13 (Prevnar 13) 2017-06-10 00:00:00 Completed [facility] High D[facility] 2016-08-29 00:00:[address] [facility] Influenza High Dose 2016-08-29 00:00:[address] [facility] Influenza High Dose 2016-08-29 00:00:[address] [facility] Influenza High Dose 2016-08-29 00:00:[address] [facility] Influenza High Dose 2016-08-29 00:00:[address] [facility] Influenza High Dose 2016-08-29 00:00:[address] [facility] Influenza High Dose 2016-08-29 00:00:[address] [facility] Influenza High Dose 2016-08-29 00:00:[address] [facility] Influenza High Dose 2016-08-29 00:00:[address] [facility] Influenza High Dose 2016-08-29 00:00:[address] [facility] Influenza High Dose 2016-08-29 00:00:[address] [facility] Influenza High Dose 2016-08-29 00:00:[address] [facility] Influenza High Dose 2016-08-29 00:00:[address] [facility] Influenza High Dose 2016-08-29 00:00:[address] [facility] Influenza High Dose 2016-08-29 00:00:[address] [facility] Influenza High Dose 2016-08-29 00:00:[address] [facility] Influenza High Dose 2016-08-29 00:00:[address] [facility] Influenza High Dose 2016-08-29 00:00:[address] [facility] Influenza High Dose 2016-08-29 00:00:[address] [facility] Influenza High Dose 2016-08-29 00:00:[address] [facility] Influenza High Dose 2016-08-29 00:00:[address] [facility] Influenza High Dose 2016-08-29 00:00:[address] [facility] Influenza High Dose 2016-08-29 00:00:[address] [facility] Influenza High Dose 2016-08-29 00:00:[address] [facility] Influenza High Dose 2016-08-29 00:00:[address] [facility] Influenza High Dose 2016-08-29 00:00:[address] [facility] Influenza High Dose 2016-08-29 00:00:[address] [facility] Influenza High Dose 2016-08-29 00:00:[address] [facility] Influenza High Dose 2016-08-29 00:00:[address] [facility] Influenza High Dose 2016-08-29 00:00:[address] [facility] Influenza High Dose 2016-08-29 00:00:[address] [facility] Influenza High Dose 2016-08-29 00:00:[address] [facility] Influenza High Dose 2016-08-29 00:00:[address] [facility] Influenza High Dose 2016-08-29 00:00:[address] [facility] Influenza High Dose 2016-08-29 00:00:[address] [facility] Influenza High Dose 2016-08-29 00:00:[address] [facility] Influenza High Dose 2016-08-29 00:00:[address] [facility] Influenza High Dose 2016-08-29 00:00:[address] [facility] Influenza High Dose 2016-08-29 00:00:[address] [facility] Influenza High Dose 2016-08-29 00:00:[address] [facility] Influenza High Dose 2016-08-29 00:00:[address] [facility] Influenza High Dose 2016-08-29 00:00:[address] [facility] Influenza High Dose 2016-08-29 00:00:[address] [facility] Influenza High Dose 2016-08-29 00:00:[address] [facility] Influenza High Dose 2016-08-29 00:00:[address] [facility] Influenza High Dose 2016-08-29 00:00:[address] [facility] Influenza High Dose 2016-08-29 00:00:[address] [facility] Influenza High Dose 2016-08-29 00:00:[address] [facility] Influenza, High-Dose, Trivalent, PF (FLUZONE) 2016-08-29 00:00:[address] [facility] Influenza High Dose 2015-08-19 00:00:[address] [facility] Influenza High Dose 2015-08-19 00:00:[address] [facility] Influenza High Dose 2015-08-19 00:00:[address] [facility] Influenza High Dose 2015-08-19 00:00:[address] [facility] Influenza High Dose 2015-08-19 00:00:[address] [facility] Influenza High Dose 2015-08-19 00:00:[address] [facility] Influenza High Dose 2015-08-19 00:00:[address] [facility] Influenza High Dose 2015-08-19 00:00:[address] [facility] Influenza High Dose 2015-08-19 00:00:[address] [facility] Influenza High Dose 2015-08-19 00:00:[address] [facility] Influenza High Dose 2015-08-19 00:00:[address] [facility] Influenza High Dose 2015-08-19 00:00:[address] [facility] Influenza High Dose 2015-08-19 00:00:[address] [facility] Influenza High Dose 2015-08-19 00:00:[address] [facility] Influenza High Dose 2015-08-19 00:00:[address] [facility] Influenza High Dose 2015-08-19 00:00:[address] [facility] Influenza High Dose 2015-08-19 00:00:[address] [facility] Influenza High Dose 2015-08-19 00:00:00 Completed [facility] Influenza High Dose 2015-08-19 00:00:[address] [facility] Influenza High Dose 2015-08-19 00:00:[address] [facility] Influenza High Dose 2015-08-19 00:00:[address] [facility] Influenza High Dose 2015-08-19 00:00:[address] [facility] Influenza High Dose 2015-08-19 00:00:[address] [facility] Influenza High Dose 2015-08-19 00:00:[address] [facility] Influenza High Dose 2015-08-19 00:00:[address] [facility] Influenza High Dose 2015-08-19 00:00:[address] [facility] Influenza High Dose 2015-08-19 00:00:[address] [facility] Influenza High Dose 2015-08-19 00:00:[address] [facility] Influenza High Dose 2015-08-19 00:00:[address] [facility] Influenza High Dose 2015-08-19 00:00:[address] [facility] Influenza High Dose 2015-08-19 00:00:[address] [facility] Influenza High Dose 2015-08-19 00:00:[address] [facility] Influenza High Dose 2015-08-19 00:00:[address] [facility] Influenza High Dose 2015-08-19 00:00:[address] [facility] Influenza High Dose 2015-08-19 00:00:[address] [facility] Influenza High Dose 2015-08-19 00:00:[address] [facility] Influenza High Dose 2015-08-19 00:00:[address] [facility] Influenza High Dose 2015-08-19 00:00:[address] [facility] Influenza High Dose 2015-08-19 00:00:[address] [facility] Influenza High Dose 2015-08-19 00:00:[address] [facility] Influenza High Dose 2015-08-19 00:00:[address] [facility] Influenza High Dose 2015-08-19 00:00:[address] [facility] Influenza High Dose 2015-08-19 00:00:[address] [facility] Influenza High Dose 2015-08-19 00:00:[address] [facility] Influenza High Dose 2015-08-19 00:00:[address] [facility] Influenza High Dose 2015-08-19 00:00:[address] [facility] Influenza High Dose 2015-08-19 00:00:[address] [facility] Influenza High Dose 2015-08-19 00:00:[address] [facility] Influenza, High-Dose, Trivalent, PF (FLUZONE) 2015-08-19 00:00:[address] [facility] Influenza High Dose 2014-07-16 00:00:[address] [facility] Influenza High Dose 2014-07-16 00:00:[address] [facility] Influenza High Dose 2014-07-16 00:00:[address] [facility] Influenza High Dose 2014-07-16 00:00:[address] [facility] Influenza High Dose 2014-07-16 00:00:[address] [facility] Influenza High Dose 2014-07-16 00:00:[address] [facility] Influenza High Dose 2014-07-16 00:00:[address] [facility] Influenza High Dose 2014-07-16 00:00:[address] [facility] Influenza High Dose 2014-07-16 00:00:[address] [facility] Influenza High Dose 2014-07-16 00:00:[address] [facility] Influenza High Dose 2014-07-16 00:00:[address] [facility] Influenza High Dose 2014-07-16 00:00:[address] [facility] Influenza High Dose 2014-07-16 00:00:[address] [facility] Influenza High Dose 2014-07-16 00:00:[address] [facility] Influenza High Dose 2014-07-16 00:00:[address] [facility] Influenza High Dose 2014-07-16 00:00:[address] [facility] Influenza High Dose 2014-07-16 00:00:[address] [facility] Influenza High Dose 2014-07-16 00:00:[address] [facility] Influenza High Dose 2014-07-16 00:00:[address] [facility] Influenza High Dose 2014-07-16 00:00:[address] [facility] Influenza High Dose 2014-07-16 00:00:[address] [facility] Influenza High Dose 2014-07-16 00:00:[address] [facility] Influenza High Dose 2014-07-16 00:00:[address] [facility] Influenza High Dose 2014-07-16 00:00:[address] [facility] Influenza High Dose 2014-07-16 00:00:[address] [facility] Influenza High Dose 2014-07-16 00:00:[address] [facility] Influenza High Dose 2014-07-16 00:00:[address] [facility] Influenza High Dose 2014-07-16 00:00:[address] [facility] Influenza High Dose 2014-07-16 00:00:[address] [facility] Influenza High Dose 2014-07-16 00:00:[address] [facility] Influenza High Dose 2014-07-16 00:00:[address] [facility] Influenza High Dose 2014-07-16 00:00:[address] [facility] Influenza High Dose 2014-07-16 00:00:[address] [facility] Influenza High Dose 2014-07-16 00:00:[address] [facility] Influenza High Dose 2014-07-16 00:00:[address] [facility] Influenza High Dose 2014-07-16 00:00:[address] [facility] Influenza High Dose 2014-07-16 00:00:[address] [facility] Influenza High Dose 2014-07-16 00:00:[address] [facility] Influenza High Dose 2014-07-16 00:00:[address] [facility] Influenza High Dose 2014-07-16 00:00:[address] [facility] Influenza High Dose 2014-07-16 00:00:[address] [facility] Influenza High Dose 2014-07-16 00:00:[address] [facility] Influenza High Dose 2014-07-16 00:00:[address] [facility] Influenza High Dose 2014-07-16 00:00:[address] [facility] Influenza High Dose 2014-07-16 00:00:[address] [facility] Influenza High Dose 2014-07-16 00:00:[address] [facility] Influenza High Dose 2014-07-16 00:00:[address] [facility] Influenza High Dose 2014-07-16 00:00:[address] [facility] Influenza, High-Dose, Trivalent, PF (FLUZONE) 2014-07-16 00:00:[address] [facility] Pneumococcal Polysaccharide, PPSV23 (PNEUMOVAX) 2011-06-13 00:00:[address] [facility] Influenza Virus Vaccine 2011-06-13 00:00:[address] [facility] Pneumococcal Polysaccharide, PPSV23 (PNEUMOVAX) 2011-06-13 00:00:[address] [facility] Influenza Virus Vaccine 2011-06-13 00:00:[address] [facility] Pneumococcal Polysaccharide, PPSV23 (PNEUMOVAX) 2011-06-13 00:00:[address] [facility] Influenza Virus Vaccine 2011-06-13 00:00:[address] [facility] Pneumococcal Polysaccharide, PPSV23 (PNEUMOVAX) 2011-06-13 00:00:[address] [facility] Influenza Virus Vaccine 2011-06-13 00:00:[address] [facility] Pneumococcal Polysaccharide, PPSV23 (PNEUMOVAX) 2011-06-13 00:00:[address] [facility] Influenza Virus Vaccine 2011-06-13 00:00:[address] [facility] Pneumococcal Polysaccharide, PPSV23 (PNEUMOVAX) 2011-06-13 00:00:[address] [facility] Influenza Virus Vaccine 2011-06-13 00:00:[address] [facility] Pneumococcal Polysaccharide, PPSV23 (PNEUMOVAX) 2011-06-13 00:00:[address] [facility] Influenza Virus Vaccine 2011-06-13 00:00:[address] [facility] Pneumococcal Polysaccharide, PPSV23 (PNEUMOVAX) 2011-06-13 00:00:[address] [facility] Influenza Virus Vaccine 2011-06-13 00:00:[address] [facility] Pneumococcal Polysaccharide, PPSV23 (PNEUMOVAX) 2011-06-13 00:00:[address] [facility] Influenza Virus Vaccine 2011-06-13 00:00:[address] [facility] Pneumococcal Polysaccharide, PPSV23 (PNEUMOVAX) 2011-06-13 00:00:[address] [facility] Influenza Virus Vaccine 2011-06-13 00:00:[address] [facility] Pneumococcal Polysaccharide, PPSV23 (PNEUMOVAX) 2011-06-13 00:00:[address] [facility] Influenza Virus Vaccine 2011-06-13 00:00:[address] [facility] Pneumococcal Polysaccharide, PPSV23 (PNEUMOVAX) 2011-06-13 00:00:[address] [facility] Influenza Virus Vaccine 2011-06-13 00:00:[address] [facility] Pneumococcal Polysaccharide, PPSV23 (PNEUMOVAX) 2011-06-13 00:00:[address] [facility] Influenza Virus Vaccine 2011-06-13 00:00:[address] [facility] Pneumococcal Polysaccharide, PPSV23 (PNEUMOVAX) 2011-06-13 00:00:[address] [facility] Influenza Virus Vaccine 2011-06-13 00:00:[address] [facility] Pneumococcal Polysaccharide, PPSV23 (PNEUMOVAX) 2011-06-13 00:00:[address] [facility] Influenza Virus Vaccine 2011-06-13 00:00:[address] [facility] Pneumococcal Polysaccharide, PPSV23 (PNEUMOVAX) 2011-06-13 00:00:[address] [facility] Influenza Virus Vaccine 2011-06-13 00:00:[address] [facility] Pneumococcal Polysaccharide, PPSV23 (PNEUMOVAX) 2011-06-13 00:00:[address] [facility] Influenza Virus Vaccine 2011-06-13 00:00:[address] [facility] Pneumococcal Polysaccharide, PPSV23 (PNEUMOVAX) 2011-06-13 00:00:[address] [facility] Influenza Virus Vaccine 2011-06-13 00:00:[address] [facility] Pneumococcal Polysaccharide, PPSV23 (PNEUMOVAX) 2011-06-13 00:00:[address] [facility] Influenza Virus Vaccine 2011-06-13 00:00:[address] [facility] Pneumococcal Polysaccharide, PPSV23 (PNEUMOVAX) 2011-06-13 00:00:[address] [facility] Influenza Virus Vaccine 2011-06-13 00:00:[address] [facility] Pneumococcal Polysaccharide, PPSV23 (PNEUMOVAX) 2011-06-13 00:00:[address] [facility] Influenza Virus Vaccine 2011-06-13 00:00:[address] [facility] Pneumococcal Polysaccharide, PPSV23 (PNEUMOVAX) 2011-06-13 00:00:[address] [facility] Influenza Virus Vaccine 2011-06-13 00:00:[address] [facility] Pneumococcal Polysaccharide, PPSV23 (PNEUMOVAX) 2011-06-13 00:00:[address] [facility] Influenza Virus Vaccine 2011-06-13 00:00:[address] [facility] Pneumococcal Polysaccharide, PPSV23 (PNEUMOVAX) 2011-06-13 00:00:[address] [facility] Influenza Virus Vaccine 2011-06-13 00:00:[address] [facility] Pneumococcal Polysaccharide, PPSV23 (PNEUMOVAX) 2011-06-13 00:00:[address] [facility] Influenza Virus Vaccine 2011-06-13 00:00:[address] [facility] Pneumococcal Polysaccharide, PPSV23 (PNEUMOVAX) 2011-06-13 00:00:[address] [facility] Influenza Virus Vaccine 2011-06-13 00:00:[address] [facility] Pneumococcal Polysaccharide, PPSV23 (PNEUMOVAX) 2011-06-13 00:00:[address] [facility] Influenza Virus Vaccine 2011-06-13 00:00:[address] [facility] Pneumococcal Polysaccharide, PPSV23 (PNEUMOVAX) 2011-06-13 00:00:[address] [facility] Influenza Virus Vaccine 2011-06-13 00:00:[address] [facility] Pneumococcal Polysaccharide, PPSV23 (PNEUMOVAX) 2011-06-13 00:00:[address] [facility] Influenza Virus Vaccine 2011-06-13 00:00:[address] [facility] Pneumococcal Polysaccharide, PPSV23 (PNEUMOVAX) 2011-06-13 00:00:[address] [facility] Influenza Virus Vaccine 2011-06-13 00:00:[address] [facility] Pneumococcal Polysaccharide, PPSV23 (PNEUMOVAX) 2011-06-13 00:00:[address] [facility] Influenza Virus Vaccine 2011-06-13 00:00:[address] [facility] Pneumococcal Polysaccharide, PPSV23 (PNEUMOVAX) 2011-06-13 00:00:[address] [facility] Influenza Virus Vaccine 2011-06-13 00:00:[address] [facility] Pneumococcal Polysaccharide, PPSV23 (PNEUMOVAX) 2011-06-13 00:00:[address] [facility] Influenza Virus Vaccine 2011-06-13 00:00:[address] [facility] Pneumococcal Polysaccharide, PPSV23 (PNEUMOVAX) 2011-06-13 00:00:[address] [facility] Influenza Virus Vaccine 2011-06-13 00:00:[address] [facility] Pneumococcal Polysaccharide, PPSV23 (PNEUMOVAX) 2011-06-13 00:00:[address] [facility] Influenza Virus Vaccine 2011-06-13 00:00:[address] [facility] Pneumococcal Polysaccharide, PPSV23 (PNEUMOVAX) 2011-06-13 00:00:[address] [facility] Influenza Virus Vaccine 2011-06-13 00:00:[address] [facility] Pneumococcal Polysaccharide, PPSV23 (PNEUMOVAX) 2011-06-13 00:00:[address] [facility] Influenza Virus Vaccine 2011-06-13 00:00:[address] [facility] Pneumococcal Polysaccharide, PPSV23 (PNEUMOVAX) 2011-06-13 00:00:[address] [facility] Influenza Virus Vaccine 2011-06-13 00:00:[address] [facility] Pneumococcal Polysaccharide, PPSV23 (PNEUMOVAX) 2011-06-13 00:00:[address] [facility] Influenza Virus Vaccine 2011-06-13 00:00:[address] [facility] Pneumococcal Polysaccharide, PPSV23 (PNEUMOVAX) 2011-06-13 00:00:[address] [facility] Influenza Virus Vaccine 2011-06-13 00:00:[address] [facility] Pneumococcal Polysaccharide, PPSV23 (PNEUMOVAX) 2011-06-13 00:00:[address] [facility] Influenza Virus Vaccine 2011-06-13 00:00:[address] [facility] Pneumococcal Polysaccharide, PPSV23 (PNEUMOVAX) 2011-06-13 00:00:[address] [facility] Influenza Virus Vaccine 2011-06-13 00:00:[address] [facility] Pneumococcal Polysaccharide, PPSV23 (PNEUMOVAX) 2011-06-13 00:00:[address] [facility] Influenza Virus Vaccine 2011-06-13 00:00:[address] [facility] Pneumococcal Polysaccharide, PPSV23 (PNEUMOVAX) 2011-06-13 00:00:[address] [facility] Influenza Virus Vaccine 2011-06-13 00:00:[address] [facility] Pneumococcal Polysaccharide, PPSV23 (PNEUMOVAX) 2011-06-13 00:00:[address] [facility] Influenza Virus Vaccine 2011-06-13 00:00:[address] [facility] Pneumococcal Polysaccharide, PPSV23 (PNEUMOVAX) 2011-06-13 00:00:[address] [facility] Influenza Virus Vaccine 2011-06-13 00:00:[address] [facility] Pneumococcal Polysaccharide, PPSV23 (PNEUMOVAX) 2011-06-13 00:00:[address] [facility] Influenza Virus Vaccine 2011-06-13 00:00:[address] [facility] Pneumococcal Polysaccharide, PPSV23 (PNEUMOVAX) 2011-06-13 00:00:[address] [facility] Influenza Virus Vaccine 2011-06-13 00:00:[address] [facility] Pneumococcal Polysaccharide, PPSV23 (PNEUMOVAX) 2011-06-13 00:00:[address] [facility] Influenza Virus Vaccine 2011-06-13 00:00:00 Completed Pneumococcal Polysaccharide, PPSV23 (PNEUMOVAX) Unknown Completed [facility] Influenza Virus Vaccine Unknown Completed [facility] Influenza High Dose Unknown Completed [facility] Pneumococcal 13 Conjugate, PCV13 (Prevnar 13) Unknown Completed [facility] Pneumococcal Polysaccharide, PPSV23 (PNEUMOVAX) Unknown Completed [facility] TDAP (ADACEL) VACCINE Unknown Completed [facility] Influenza High Dose Quad Unknown Completed [facility] SARS-COV-2 COVID-19 MODERNA 12+ YRS VACCINE Unknown Completed [facility] SARS-COV-2 COVID-19 MODERNA 0.25ML BOOSTER VACCINE Unknown Completed [facility] Influenza Virus Vaccine,quad Im,preserve Free 65+ (FLUAD) Unknown Completed [facility] SARS-COV-2 COVID-19 VACCINE 12 YRS+, BIVALENT 0.5ML, IM, (MODERNA-BLUE TOP) Unknown Completed [facility] Pneumococcal Polysaccharide, PPSV23 (PNEUMOVAX) Unknown Completed [facility] Influenza Virus Vaccine Unknown Completed [facility] Influenza High Dose Unknown Completed [facility] Pneumococcal 13 Conjugate, PCV13 (Prevnar 13) Unknown Completed [facility] Pneumococcal Polysaccharide, PPSV23 (PNEUMOVAX) Unknown Completed [facility] TDAP (ADACEL) VACCINE Unknown Completed [facility] Influenza High Dose Quad Unknown Completed [facility] SARS-COV-2 COVID-19 MODERNA 12+ YRS VACCINE Unknown Completed [facility] SARS-COV-2 COVID-19 MODERNA 0.25ML BOOSTER VACCINE Unknown Completed [facility] Influenza Virus Vaccine,quad Im,preserve Free 65+ (FLUAD) Unknown Completed [facility] SARS-COV-2 COVID-19 VACCINE 12 YRS+, BIVALENT 0.5ML, IM, (MODERNA-BLUE TOP) Unknown Completed [facility] Pneumococcal Polysaccharide, PPSV23 (PNEUMOVAX) Unknown Completed [facility] Influenza Virus Vaccine Unknown Completed [facility] Influenza High Dose Unknown Completed [facility] Pneumococcal 13 Conjugate, PCV13 (Prevnar 13) Unknown Completed [facility] Pneumococcal Polysaccharide, PPSV23 (PNEUMOVAX) Unknown Completed [facility] TDAP (ADACEL) VACCINE Unknown Completed [facility] Influenza High Dose Quad Unknown Completed [facility] SARS-COV-2 COVID-19 MODERNA 12+ YRS VACCINE Unknown Completed [facility] SARS-COV-2 COVID-19 MODERNA 0.25ML BOOSTER VACCINE Unknown Completed [facility] Influenza Virus Vaccine,quad Im,preserve Free 65+ (FLUAD) Unknown Completed [facility] Pneumococcal Polysaccharide, PPSV23 (PNEUMOVAX) Unknown Completed [facility] Influenza Virus Vaccine Unknown Completed [facility] Influenza High Dose Unknown Completed [facility] Pneumococcal 13 Conjugate, PCV13 (Prevnar 13) Unknown Completed [facility] Pneumococcal Polysaccharide, PPSV23 (PNEUMOVAX) Unknown Completed [facility] TDAP (ADACEL) VACCINE Unknown Completed [facility] Influenza High Dose Quad Unknown Completed [facility] SARS-COV-2 COVID-19 MODERNA 12+ YRS VACCINE Unknown Completed [facility] SARS-COV-2 COVID-19 MODERNA 0.25ML BOOSTER VACCINE Unknown Completed [facility] Influenza Virus Vaccine,quad Im,preserve Free 65+ (FLUAD) Unknown Completed [facility] Pneumococcal Polysaccharide, PPSV23 (PNEUMOVAX) Unknown Completed [facility] Influenza Virus Vaccine Unknown Completed [facility] Influenza High Dose Unknown Completed [facility] Pneumococcal 13 Conjugate, PCV13 (Prevnar 13) Unknown Completed [facility] Pneumococcal Polysaccharide, PPSV23 (PNEUMOVAX) Unknown Completed [facility] TDAP (ADACEL) VACCINE Unknown Completed [facility] Influenza High Dose Quad Unknown Completed [facility] SARS-COV-2 COVID-19 MODERNA 12+ YRS VACCINE Unknown Completed [facility] SARS-COV-2 COVID-19 MODERNA 0.25ML BOOSTER VACCINE Unknown Completed [facility] Pneumococcal Polysaccharide, PPSV23 (PNEUMOVAX) Unknown Completed [facility] Influenza Virus Vaccine Unknown Completed [facility] Influenza High Dose Unknown Completed [facility] Pneumococcal 13 Conjugate, PCV13 (Prevnar 13) Unknown Completed [facility] Pneumococcal Polysaccharide, PPSV23 (PNEUMOVAX) Unknown Completed [facility] TDAP (ADACEL) VACCINE Unknown Completed [facility] Influenza High Dose Quad Unknown Completed [facility] SARS-COV-2 COVID-19 MODERNA 12+ YRS VACCINE Unknown Completed [facility] SARS-COV-2 COVID-19 MODERNA 0.25ML BOOSTER VACCINE Unknown Completed [facility] Pneumococcal Polysaccharide, PPSV23 (PNEUMOVAX) Unknown Completed [facility] Influenza Virus Vaccine Unknown Completed [facility] Influenza High Dose Unknown Completed [facility] Pneumococcal 13 Conjugate, PCV13 (Prevnar 13) Unknown Completed [facility] Pneumococcal Polysaccharide, PPSV23 (PNEUMOVAX) Unknown Completed [facility] TDAP (ADACEL) VACCINE Unknown Completed [facility] Influenza High Dose Quad Unknown Completed [facility] SARS-COV-2 COVID-19 MODERNA 12+ YRS VACCINE Unknown Completed [facility] Pneumococcal Polysaccharide, PPSV23 (PNEUMOVAX) Unknown Completed [facility] Influenza Virus Vaccine Unknown Completed [facility] Influenza High Dose Unknown Completed [facility] Pneumococcal 13 Conjugate, PCV13 (Prevnar 13) Unknown Completed [facility] Pneumococcal Polysaccharide, PPSV23 (PNEUMOVAX) Unknown Completed [facility] TDAP (ADACEL) VACCINE Unknown Completed [facility] Influenza High Dose Quad Unknown Completed [facility] SARS-COV-2 COVID-19 MODERNA 12+ YRS VACCINE Unknown Completed [facility] Pneumococcal Polysaccharide, PPSV23 (PNEUMOVAX) Unknown Completed [facility] Influenza Virus Vaccine Unknown Completed [facility] Influenza High Dose Unknown Completed [facility] Pneumococcal 13 Conjugate, PCV13 (Prevnar 13) Unknown Completed [facility] Pneumococcal Polysaccharide, PPSV23 (PNEUMOVAX) Unknown Completed [facility] TDAP (ADACEL) VACCINE Unknown Completed [facility] Pneumococcal Polysaccharide, PPSV23 (PNEUMOVAX) Unknown Completed [facility] Influenza Virus Vaccine Unknown Completed [facility] Influenza High Dose Unknown Completed [facility] Pneumococcal 13 Conjugate, PCV13 (Prevnar 13) Unknown Completed [facility] Pneumococcal Polysaccharide, PPSV23 (PNEUMOVAX) Unknown Completed [facility] TDAP (ADACEL) VACCINE Unknown Completed [facility] Influenza High Dose Quad Unknown Completed [facility] SARS-COV-2 COVID-19 MODERNA 12+ YRS VACCINE Unknown Completed [facility] SARS-COV-2 COVID-19 MODERNA 0.25ML BOOSTER VACCINE Unknown Completed [facility] Influenza Virus Vaccine,quad Im,preserve Free 65+ (FLUAD) Unknown Completed [facility] SARS-COV-2 COVID-19 VACCINE 12 YRS+, BIVALENT 0.5ML, IM, (MODERNA-BLUE TOP) Unknown Completed [facility] Pneumococcal Polysaccharide, PPSV23 (PNEUMOVAX) Unknown Completed [facility] Influenza Virus Vaccine Unknown Completed [facility] Influenza High Dose Unknown Completed [facility] Pneumococcal 13 Conjugate, PCV13 (Prevnar 13) Unknown Completed [facility] Pneumococcal Polysaccharide, PPSV23 (PNEUMOVAX) Unknown Completed [facility] TDAP (ADACEL) VACCINE Unknown Completed [facility] Influenza High Dose Quad Unknown Completed [facility] SARS-COV-2 COVID-19 MODERNA 12+ YRS VACCINE Unknown Completed [facility] SARS-COV-2 COVID-19 MODERNA 0.25ML BOOSTER VACCINE Unknown Completed [facility] Influenza Virus Vaccine,quad Im,preserve Free 65+ (FLUAD) Unknown Completed [facility] SARS-COV-2 COVID-19 VACCINE 12 YRS+, BIVALENT 0.5ML, IM, (MODERNA-BLUE TOP) Unknown Completed [facility] Pneumococcal Polysaccharide, PPSV23 (PNEUMOVAX) Unknown Completed [facility] Influenza Virus Vaccine Unknown Completed [facility] Influenza High Dose Unknown Completed [facility] Pneumococcal 13 Conjugate, PCV13 (Prevnar 13) Unknown Completed [facility] Pneumococcal Polysaccharide, PPSV23 (PNEUMOVAX) Unknown Completed [facility] TDAP (ADACEL) VACCINE Unknown Completed [facility] Influenza High Dose Quad Unknown Completed [facility] SARS-COV-2 COVID-19 MODERNA 12+ YRS VACCINE Unknown Completed [facility] SARS-COV-2 COVID-19 MODERNA 0.25ML BOOSTER VACCINE Unknown Completed [facility] Influenza Virus Vaccine,quad Im,preserve Free 65+ (FLUAD) Unknown Completed [facility] SARS-COV-2 COVID-19 VACCINE 12 YRS+, BIVALENT 0.5ML, IM, (MODERNA-BLUE TOP) Unknown Completed [facility] Pneumococcal Polysaccharide, PPSV23 (PNEUMOVAX) Unknown Completed [facility] Influenza Virus Vaccine Unknown Completed [facility] Influenza High Dose Unknown Completed [facility] Pneumococcal 13 Conjugate, PCV13 (Prevnar 13) Unknown Completed [facility] Pneumococcal Polysaccharide, PPSV23 (PNEUMOVAX) Unknown Completed [facility] TDAP (ADACEL) VACCINE Unknown Completed [facility] Influenza High Dose Quad Unknown Completed [facility] SARS-COV-2 COVID-19 MODERNA 12+ YRS VACCINE Unknown Completed [facility] SARS-COV-2 COVID-19 MODERNA 0.25ML BOOSTER VACCINE Unknown Completed [facility] Influenza Virus Vaccine,quad Im,preserve Free 65+ (FLUAD) Unknown Completed [facility] SARS-COV-2 COVID-19 VACCINE 12 YRS+, BIVALENT 0.5ML, IM, (MODERNA-BLUE TOP) Unknown Completed [facility] Pneumococcal Polysaccharide, PPSV23 (PNEUMOVAX) Unknown Completed [facility] Influenza Virus Vaccine Unknown Completed [facility] Influenza High Dose Unknown Completed [facility] Pneumococcal 13 Conjugate, PCV13 (Prevnar 13) Unknown Completed [facility] Pneumococcal Polysaccharide, PPSV23 (PNEUMOVAX) Unknown Completed [facility] TDAP (ADACEL) VACCINE Unknown Completed [facility] Influenza High Dose Quad Unknown Completed [facility] SARS-COV-2 COVID-19 MODERNA 12+ YRS VACCINE Unknown Completed [facility] SARS-COV-2 COVID-19 MODERNA 0.25ML BOOSTER VACCINE Unknown Completed [facility] Influenza Virus Vaccine,quad Im,preserve Free 65+ (FLUAD) Unknown Completed [facility] SARS-COV-2 COVID-19 VACCINE 12 YRS+, BIVALENT 0.5ML, IM, (MODERNA-BLUE TOP) Unknown Completed [facility] Pneumococcal Polysaccharide, PPSV23 (PNEUMOVAX) Unknown Completed [facility] Influenza Virus Vaccine Unknown Completed [facility] Pneumococcal 13 Conjugate, PCV13 (Prevnar 13) Unknown Completed [facility] Pneumococcal Polysaccharide, PPSV23 (PNEUMOVAX) Unknown Completed [facility] TDAP (ADACEL) VACCINE Unknown Completed [facility] Influenza High Dose Quad Unknown Completed [facility] SARS-COV-2 COVID-19 VACCINE 12 YRS+, BIVALENT 0.5ML, IM, (MODERNA-BLUE TOP) Unknown Completed [facility] Influenza High Dose Unknown Completed [facility] SARS-COV-2 COVID-19 MODERNA 12+ YRS VACCINE Unknown Completed [facility] SARS-COV-2 COVID-19 MODERNA 0.25ML BOOSTER VACCINE Unknown Completed [facility] Influenza Virus Vaccine,quad Im,preserve Free 65+ (FLUAD) Unknown Completed [facility] Pneumococcal Polysaccharide, PPSV23 (PNEUMOVAX) Unknown Completed [facility] Influenza Virus Vaccine Unknown Completed [facility] Pneumococcal 13 Conjugate, PCV13 (Prevnar 13) Unknown Completed [facility] Pneumococcal Polysaccharide, PPSV23 (PNEUMOVAX) Unknown Completed [facility] TDAP (ADACEL) VACCINE Unknown Completed [facility] Influenza High Dose Quad Unknown Completed [facility] SARS-COV-2 COVID-19 VACCINE 12 YRS+, BIVALENT 0.5ML, IM, (MODERNA-BLUE TOP) Unknown Completed [facility] Influenza High Dose Unknown Completed [facility] SARS-COV-2 COVID-19 MODERNA 12+ YRS VACCINE Unknown Completed [facility] SARS-COV-2 COVID-19 MODERNA 0.25ML BOOSTER VACCINE Unknown Completed [facility] Influenza Virus Vaccine,quad Im,preserve Free 65+ (FLUAD) Unknown Completed [facility] Pneumococcal Polysaccharide, PPSV23 (PNEUMOVAX) Unknown Completed [facility] Influenza Virus Vaccine Unknown Completed [facility] Influenza High Dose Unknown Completed [facility] Pneumococcal 13 Conjugate, PCV13 (Prevnar 13) Unknown Completed [facility] Pneumococcal Polysaccharide, PPSV23 (PNEUMOVAX) Unknown Completed [facility] TDAP (ADACEL) VACCINE Unknown Completed [facility] Influenza High Dose Quad Unknown Completed [facility] SARS-COV-2 COVID-19 MODERNA 12+ YRS VACCINE Unknown Completed [facility] SARS-COV-2 COVID-19 MODERNA 0.25ML BOOSTER VACCINE Unknown Completed [facility] Influenza Virus Vaccine,quad Im,preserve Free 65+ (FLUAD) Unknown Completed [facility] SARS-COV-2 COVID-19 VACCINE 12 YRS+, BIVALENT 0.5ML, IM, (MODERNA-BLUE TOP) Unknown Completed [facility] Pneumococcal Polysaccharide, PPSV23 (PNEUMOVAX) Unknown Completed [facility] Influenza Virus Vaccine Unknown Completed [facility] Influenza High Dose Unknown Completed [facility] Pneumococcal 13 Conjugate, PCV13 (Prevnar 13) Unknown Completed [facility] Pneumococcal Polysaccharide, PPSV23 (PNEUMOVAX) Unknown Completed [facility] TDAP (ADACEL) VACCINE Unknown Completed [facility] Influenza High Dose Quad Unknown Completed [facility] SARS-COV-2 COVID-19 MODERNA 12+ YRS VACCINE Unknown Completed [facility] SARS-COV-2 COVID-19 MODERNA 0.25ML BOOSTER VACCINE Unknown Completed [facility] Influenza Virus Vaccine,quad Im,preserve Free 65+ (FLUAD) Unknown Completed [facility] SARS-COV-2 COVID-19 VACCINE 12 YRS+, BIVALENT 0.5ML, IM, (MODERNA-BLUE TOP) Unknown Completed [facility] Pneumococcal Polysaccharide, PPSV23 (PNEUMOVAX) Unknown Completed [facility] Influenza Virus Vaccine Unknown Completed [facility] Pneumococcal 13 Conjugate, PCV13 (Prevnar 13) Unknown Completed [facility] Pneumococcal Polysaccharide, PPSV23 (PNEUMOVAX) Unknown Completed [facility] TDAP (ADACEL) VACCINE Unknown Completed [facility] Influenza High Dose Quad Unknown Completed [facility] SARS-COV-2 COVID-19 VACCINE 12 YRS+, BIVALENT 0.5ML, IM, (MODERNA-BLUE TOP) Unknown Completed [facility] Influenza High Dose Unknown Completed [facility] SARS-COV-2 COVID-19 MODERNA 12+ YRS VACCINE Unknown Completed [facility] SARS-COV-2 COVID-19 MODERNA 0.25ML BOOSTER VACCINE Unknown Completed [facility] Influenza Virus Vaccine,quad Im,preserve Free 65+ (FLUAD) Unknown Completed [facility] Pneumococcal Polysaccharide, PPSV23 (PNEUMOVAX) Unknown Completed [facility] Influenza Virus Vaccine Unknown Completed [facility] Influenza High Dose Unknown Completed [facility] Pneumococcal 13 Conjugate, PCV13 (Prevnar 13) Unknown Completed [facility] Pneumococcal Polysaccharide, PPSV23 (PNEUMOVAX) Unknown Completed [facility] TDAP (ADACEL) VACCINE Unknown Completed [facility] Influenza High Dose Quad Unknown Completed [facility] SARS-COV-2 COVID-19 MODERNA 12+ YRS VACCINE Unknown Completed [facility] SARS-COV-2 COVID-19 MODERNA 0.25ML BOOSTER VACCINE Unknown Completed [facility] Influenza Virus Vaccine,quad Im,preserve Free 65+ (FLUAD) Unknown Completed [facility] SARS-COV-2 COVID-19 VACCINE 12 YRS+, BIVALENT 0.5ML, IM, (MODERNA-BLUE TOP) Unknown Completed [facility] Pneumococcal Polysaccharide, PPSV23 (PNEUMOVAX) Unknown Completed [facility] Influenza Virus Vaccine Unknown Completed [facility] Pneumococcal 13 Conjugate, PCV13 (Prevnar 13) Unknown Completed [facility] Pneumococcal Polysaccharide, PPSV23 (PNEUMOVAX) Unknown Completed [facility] TDAP (ADACEL) VACCINE Unknown Completed [facility] Influenza High Dose Quad Unknown Completed [facility] SARS-COV-2 COVID-19 VACCINE 12 YRS+, BIVALENT 0.5ML, IM, (MODERNA-BLUE TOP) Unknown Completed [facility] Influenza High Dose Unknown Completed [facility] SARS-COV-2 COVID-19 MODERNA 12+ YRS VACCINE Unknown Completed [facility] SARS-COV-2 COVID-19 MODERNA 0.25ML BOOSTER VACCINE Unknown Completed [facility] Influenza Virus Vaccine,quad Im,preserve Free 65+ (FLUAD) Unknown Completed [facility] Pneumococcal Polysaccharide, PPSV23 (PNEUMOVAX) Unknown Completed [facility] Influenza Virus Vaccine Unknown Completed [facility] Influenza High Dose Unknown Completed [facility] Pneumococcal 13 Conjugate, PCV13 (Prevnar 13) Unknown Completed [facility] Pneumococcal Polysaccharide, PPSV23 (PNEUMOVAX) Unknown Completed [facility] TDAP (ADACEL) VACCINE Unknown Completed [facility] Influenza High Dose Quad Unknown Completed [facility] SARS-COV-2 COVID-19 MODERNA 12+ YRS VACCINE Unknown Completed [facility] SARS-COV-2 COVID-19 MODERNA 0.25ML BOOSTER VACCINE Unknown Completed [facility] Influenza Virus Vaccine,quad Im,preserve Free 65+ (FLUAD) Unknown Completed [facility] SARS-COV-2 COVID-19 VACCINE 12 YRS+, BIVALENT 0.5ML, IM, (MODERNA-BLUE TOP) Unknown Completed [facility] Pneumococcal Polysaccharide, PPSV23 (PNEUMOVAX) Unknown Completed [facility] Influenza Virus Vaccine Unknown Completed [facility] Influenza High Dose Unknown Completed [facility] Pneumococcal 13 Conjugate, PCV13 (Prevnar 13) Unknown Completed [facility] Pneumococcal Polysaccharide, PPSV23 (PNEUMOVAX) Unknown Completed [facility] TDAP (ADACEL) VACCINE Unknown Completed [facility] Influenza High Dose Quad Unknown Completed [facility] SARS-COV-2 COVID-19 MODERNA 12+ YRS VACCINE Unknown Completed [facility] SARS-COV-2 COVID-19 MODERNA 0.25ML BOOSTER VACCINE Unknown Completed [facility] Influenza Virus Vaccine,quad Im,preserve Free 65+ (FLUAD) Unknown Completed [facility] SARS-COV-2 COVID-19 VACCINE 12 YRS+, BIVALENT 0.5ML, IM, (MODERNA-BLUE TOP) Unknown Completed [facility] Pneumococcal Polysaccharide, PPSV23 (PNEUMOVAX) Unknown Completed [facility] Influenza Virus Vaccine Unknown Completed [facility] Influenza High Dose Unknown Completed [facility] Pneumococcal 13 Conjugate, PCV13 (Prevnar 13) Unknown Completed [facility] Pneumococcal Polysaccharide, PPSV23 (PNEUMOVAX) Unknown Completed [facility] TDAP (ADACEL) VACCINE Unknown Completed [facility] Influenza High Dose Quad Unknown Completed [facility] SARS-COV-2 COVID-19 MODERNA 12+ YRS VACCINE Unknown Completed [facility] SARS-COV-2 COVID-19 MODERNA 0.25ML BOOSTER VACCINE Unknown Completed [facility] Influenza Virus Vaccine,quad Im,preserve Free 65+ (FLUAD) Unknown Completed [facility] SARS-COV-2 COVID-19 VACCINE 12 YRS+, BIVALENT 0.5ML, IM, (MODERNA-BLUE TOP) Unknown Completed [facility] Pneumococcal Polysaccharide, PPSV23 (PNEUMOVAX) Unknown Completed [facility] Influenza Virus Vaccine Unknown Completed [facility] Influenza High Dose Unknown Completed [facility] Pneumococcal 13 Conjugate, PCV13 (Prevnar 13) Unknown Completed [facility] Pneumococcal Polysaccharide, PPSV23 (PNEUMOVAX) Unknown Completed [facility] TDAP (ADACEL) VACCINE Unknown Completed [facility] Influenza High Dose Quad Unknown Completed [facility] SARS-COV-2 COVID-19 MODERNA 12+ YRS VACCINE Unknown Completed [facility] SARS-COV-2 COVID-19 MODERNA 0.25ML BOOSTER VACCINE Unknown Completed [facility] Influenza Virus Vaccine,quad Im,preserve Free 65+ (FLUAD) Unknown Completed [facility] SARS-COV-2 COVID-19 VACCINE 12 YRS+, BIVALENT 0.5ML, IM, (MODERNA-BLUE TOP) Unknown Completed [facility] Pneumococcal Polysaccharide, PPSV23 (PNEUMOVAX) Unknown Completed [facility] Influenza Virus Vaccine Unknown Completed [facility] Influenza High Dose Unknown Completed [facility] Pneumococcal 13 Conjugate, PCV13 (Prevnar 13) Unknown Completed [facility] Pneumococcal Polysaccharide, PPSV23 (PNEUMOVAX) Unknown Completed [facility] TDAP (ADACEL) VACCINE Unknown Completed [facility] Influenza High Dose Quad Unknown Completed [facility] SARS-COV-2 COVID-19 MODERNA 12+ YRS VACCINE Unknown Completed [facility] SARS-COV-2 COVID-19 MODERNA 0.25ML BOOSTER VACCINE Unknown Completed [facility] Influenza Virus Vaccine,quad Im,preserve Free 65+ (FLUAD) Unknown Completed [facility] SARS-COV-2 COVID-19 VACCINE 12 YRS+, BIVALENT 0.5ML, IM, (MODERNA-BLUE TOP) Unknown Completed [facility] Pneumococcal Polysaccharide, PPSV23 (PNEUMOVAX) Unknown Completed [facility] Influenza Virus Vaccine Unknown Completed [facility] Influenza High Dose Unknown Completed [facility] Pneumococcal 13 Conjugate, PCV13 (Prevnar 13) Unknown Completed [facility] Pneumococcal Polysaccharide, PPSV23 (PNEUMOVAX) Unknown Completed [facility] TDAP (ADACEL) VACCINE Unknown Completed [facility] Influenza High Dose Quad Unknown Completed [facility] SARS-COV-2 COVID-19 MODERNA 12+ YRS VACCINE Unknown Completed [facility] SARS-COV-2 COVID-19 MODERNA 0.25ML BOOSTER VACCINE Unknown Completed [facility] Influenza Virus Vaccine,quad Im,preserve Free 65+ (FLUAD) Unknown Completed [facility] SARS-COV-2 COVID-19 VACCINE 12 YRS+, BIVALENT 0.5ML, IM, (MODERNA-BLUE TOP) Unknown Completed [facility] SARS-COV-2 COVID 19 [place] VACCINE 12+, [id number], 0.3 ML (30 MCG), IM PFIZER (GUTIÉRREZ TOP) Unknown Completed [facility] Pneumococcal Polysaccharide, PPSV23 (PNEUMOVAX) Unknown Completed [facility] Influenza Virus Vaccine Unknown Completed [facility] Pneumococcal 13 Conjugate, PCV13 (Prevnar 13) Unknown Completed [facility] Pneumococcal Polysaccharide, PPSV23 (PNEUMOVAX) Unknown Completed [facility] TDAP (ADACEL) VACCINE Unknown Completed [facility] Influenza High Dose Quad Unknown Completed [facility] SARS-COV-2 COVID-19 VACCINE 12 YRS+, BIVALENT 0.5ML, IM, (MODERNA-BLUE TOP) Unknown Completed [facility] SARS-COV-2 COVID 19 [place] VACCINE 12+, , 0.3 ML (30 MCG), IM PFIZER (GUTIÉRREZ TOP) Unknown Completed [facility] Influenza High Dose Unknown Completed [facility] SARS-COV-2 COVID-19 MODERNA 12+ YRS VACCINE Unknown Completed [facility] SARS-COV-2 COVID-19 MODERNA 0.25ML BOOSTER VACCINE Unknown Completed [facility] Influenza Virus Vaccine,quad Im,preserve Free 65+ (FLUAD) Unknown Completed [facility] Pneumococcal Polysaccharide, PPSV23 (PNEUMOVAX) Unknown Completed [facility] Influenza Virus Vaccine Unknown Completed [facility] Influenza High Dose Unknown Completed [facility] Pneumococcal 13 Conjugate, PCV13 (Prevnar 13) Unknown Completed [facility] Pneumococcal Polysaccharide, PPSV23 (PNEUMOVAX) Unknown Completed [facility] TDAP (ADACEL) VACCINE Unknown Completed [facility] Influenza High Dose Quad Unknown Completed [facility] SARS-COV-2 COVID-19 MODERNA 12+ YRS VACCINE Unknown Completed [facility] SARS-COV-2 COVID-19 MODERNA 0.25ML BOOSTER VACCINE Unknown Completed [facility] Influenza Virus Vaccine,quad Im,preserve Free 65+ (FLUAD) Unknown Completed [facility] SARS-COV-2 COVID-19 VACCINE 12 YRS+, BIVALENT 0.5ML, IM, (MODERNA-BLUE TOP) Unknown Completed [facility] SARS-COV-2 COVID 19 [place] VACCINE 12+, [id number], 0.3 ML (30 MCG), IM PFIZER (GUTIÉRREZ TOP) Unknown Completed [facility] Pneumococcal Polysaccharide, PPSV23 (PNEUMOVAX) Unknown Completed [facility] Influenza Virus Vaccine Unknown Completed [facility] Influenza High Dose Unknown Completed [facility] Pneumococcal 13 Conjugate, PCV13 (Prevnar 13) Unknown Completed [facility] Pneumococcal Polysaccharide, PPSV23 (PNEUMOVAX) Unknown Completed [facility] TDAP (ADACEL) VACCINE Unknown Completed [facility] Influenza High Dose Quad Unknown Completed [facility] SARS-COV-2 COVID-19 MODERNA 12+ YRS VACCINE Unknown Completed [facility] SARS-COV-2 COVID-19 MODERNA 0.25ML BOOSTER VACCINE Unknown Completed [facility] Influenza Virus Vaccine,quad Im,preserve Free 65+ (FLUAD) Unknown Completed [facility] SARS-COV-2 COVID-19 VACCINE 12 YRS+, BIVALENT 0.5ML, IM, (MODERNA-BLUE TOP) Unknown Completed [facility] SARS-COV-2 COVID 19 [place] VACCINE 12, [id number], 0.3 ML (30 MCG), IM PFIZER (GUTIÉRREZ TOP) Unknown Completed [facility] Pneumococcal Polysaccharide, PPSV23 (PNEUMOVAX) Unknown Completed [facility] Influenza Virus Vaccine Unknown Completed [facility] Influenza High Dose Unknown Completed [facility] Pneumococcal 13 Conjugate, PCV13 (Prevnar 13) Unknown Completed [facility] Pneumococcal Polysaccharide, PPSV23 (PNEUMOVAX) Unknown Completed [facility] TDAP (ADACEL) VACCINE Unknown Completed [facility] Influenza High Dose Quad Unknown Completed [facility] SARS-COV-2 COVID-19 MODERNA 12+ YRS VACCINE Unknown Completed [facility] SARS-COV-2 COVID-19 MODERNA 0.25ML BOOSTER VACCINE Unknown Completed [facility] Influenza Virus Vaccine,quad Im,preserve Free 65+ (FLUAD) Unknown Completed [facility] SARS-COV-2 COVID-19 VACCINE 12 YRS+, BIVALENT 0.5ML, IM, (MODERNA-BLUE TOP) Unknown Completed [facility] SARS-COV-2 COVID 19 [place] VACCINE 12, [id number], 0.3 ML (30 MCG), IM PFIZER (GUTIÉRREZ TOP) Unknown Completed [facility] Pneumococcal Polysaccharide, PPSV23 (PNEUMOVAX) Unknown Completed [facility] Influenza Virus Vaccine Unknown Completed [facility] Influenza High Dose Unknown Completed [facility] Pneumococcal 13 Conjugate, PCV13 (Prevnar 13) Unknown Completed [facility] Pneumococcal Polysaccharide, PPSV23 (PNEUMOVAX) Unknown Completed [facility] TDAP (ADACEL) VACCINE Unknown Completed [facility] Influenza High Dose Quad Unknown Completed [facility] SARS-COV-2 COVID-19 MODERNA 12+ YRS VACCINE Unknown Completed [facility] SARS-COV-2 COVID-19 MODERNA 0.25ML BOOSTER VACCINE Unknown Completed [facility] Influenza Virus Vaccine,quad Im,preserve Free 65+ (FLUAD) Unknown Completed [facility] SARS-COV-2 COVID-19 VACCINE 12 YRS+, BIVALENT 0.5ML, IM, (MODERNA-BLUE TOP) Unknown Completed [facility] SARS-COV-2 COVID 19 [place] VACCINE 12+, [id number], 0.3 ML (30 MCG), IM PFIZER (GUTIÉRREZ TOP) Unknown Completed [facility] Pneumococcal Polysaccharide, PPSV23 (PNEUMOVAX) Unknown Completed [facility] Influenza Virus Vaccine Unknown Completed [facility] Influenza High Dose Unknown Completed [facility] Pneumococcal 13 Conjugate, PCV13 (Prevnar 13) Unknown Completed [facility] Pneumococcal Polysaccharide, PPSV23 (PNEUMOVAX) Unknown Completed [facility] TDAP (ADACEL) VACCINE Unknown Completed [facility] Influenza High Dose Quad Unknown Completed [facility] SARS-COV-2 COVID-19 MODERNA 12+ YRS VACCINE Unknown Completed [facility] SARS-COV-2 COVID-19 MODERNA 0.25ML BOOSTER VACCINE Unknown Completed [facility] Influenza Virus Vaccine,quad Im,preserve Free 65+ (FLUAD) Unknown Completed [facility] SARS-COV-2 COVID-19 VACCINE 12 YRS+, BIVALENT 0.5ML, IM, (MODERNA-BLUE TOP) Unknown Completed [facility] SARS-COV-2 COVID 19 [place] VACCINE 12+, [id number], 0.3 ML (30 MCG), IM PFIZER (GUTIÉRREZ TOP) Unknown Completed [facility] Pneumococcal Polysaccharide, PPSV23 (PNEUMOVAX) Unknown Completed [facility] Influenza Virus Vaccine Unknown Completed [facility] Pneumococcal 13 Conjugate, PCV13 (Prevnar 13) Unknown Completed [facility] Pneumococcal Polysaccharide, PPSV23 (PNEUMOVAX) Unknown Completed [facility] TDAP (ADACEL) VACCINE Unknown Completed [facility] Influenza High Dose Quad Unknown Completed [facility] SARS-COV-2 COVID-19 VACCINE 12 YRS+, BIVALENT 0.5ML, IM, (MODERNA-BLUE TOP) Unknown Completed [facility] SARS-COV-2 COVID 19 [place] VACCINE 12+, [id number], 0.3 ML (30 MCG), IM PFIZER (GUTIÉRREZ TOP) Unknown Completed [facility] Influenza High Dose Unknown Completed [facility] SARS-COV-2 COVID-19 MODERNA 12+ YRS VACCINE Unknown Completed [facility] SARS-COV-2 COVID-19 MODERNA 0.25ML BOOSTER VACCINE Unknown Completed [facility] Influenza Virus Vaccine,quad Im,preserve Free 65+ (FLUAD) Unknown Completed [facility] Pneumococcal Polysaccharide, PPSV23 (PNEUMOVAX) Unknown Completed [facility] Influenza Virus Vaccine Unknown Completed [facility] Pneumococcal 13 Conjugate, PCV13 (Prevnar 13) Unknown Completed [facility] Pneumococcal Polysaccharide, PPSV23 (PNEUMOVAX) Unknown Completed [facility] TDAP (ADACEL) VACCINE Unknown Completed [facility] Influenza High Dose Quad Unknown Completed [facility] SARS-COV-2 COVID-19 VACCINE 12 YRS+, BIVALENT 0.5ML, IM, (MODERNA-BLUE TOP) Unknown Completed [facility] SARS-COV-2 COVID 19 [place] VACCINE 12+, [id number], 0.3 ML (30 MCG), IM PFIZER (GUTIÉRREZ TOP) Unknown Completed [facility] Influenza High Dose Unknown Completed [facility] SARS-COV-2 COVID-19 MODERNA 12+ YRS VACCINE Unknown Completed [facility] SARS-COV-2 COVID-19 MODERNA 0.25ML BOOSTER VACCINE Unknown Completed [facility] Influenza Virus Vaccine,quad Im,preserve Free 65+ (FLUAD) Unknown Completed [facility] Pneumococcal Polysaccharide, PPSV23 (PNEUMOVAX) Unknown Completed [facility] Influenza Virus Vaccine Unknown Completed [facility] Influenza High Dose Unknown Completed [facility] Pneumococcal 13 Conjugate, PCV13 (Prevnar 13) Unknown Completed [facility] Pneumococcal Polysaccharide, PPSV23 (PNEUMOVAX) Unknown Completed [facility] TDAP (ADACEL) VACCINE Unknown Completed [facility] Influenza High Dose Quad Unknown Completed [facility] SARS-COV-2 COVID-19 MODERNA 12+ YRS VACCINE Unknown Completed [facility] SARS-COV-2 COVID-19 MODERNA 0.25ML BOOSTER VACCINE Unknown Completed [facility] Influenza Virus Vaccine,quad Im,preserve Free 65+ (FLUAD) Unknown Completed [facility] SARS-COV-2 COVID-19 VACCINE 12 YRS+, BIVALENT 0.5ML, IM, (MODERNA-BLUE TOP) Unknown Completed [facility] SARS-COV-2 COVID 19 SCOTT SUCROSE VACCINE 12+, [id number], 0.3 ML (30 MCG), IM PFIZER (GUTIÉRREZ TOP) Unknown Completed [facility] Pneumococcal Polysaccharide, PPSV23 (PNEUMOVAX) Unknown Completed [facility] Influenza Virus Vaccine Unknown Completed [facility] Pneumococcal 13 Conjugate, PCV13 (Prevnar 13) Unknown Completed [facility] Pneumococcal Polysaccharide, PPSV23 (PNEUMOVAX) Unknown Completed [facility] TDAP (ADACEL) VACCINE Unknown Completed [facility] Influenza High Dose Quad Unknown Completed [facility] SARS-COV-2 COVID-19 VACCINE 12 YRS+, BIVALENT 0.5ML, IM, (MODERNA-BLUE TOP) Unknown Completed [facility] SARS-COV-2 COVID 19 SCOTT SUCROSE VACCINE 12, , 0.3 ML (30 MCG), IM PFIZER (GUTIÉRREZ TOP) Unknown Completed [facility] Influenza High Dose Unknown Completed [facility] SARS-COV-2 COVID-19 MODERNA 12+ YRS VACCINE Unknown Completed [facility] SARS-COV-2 COVID-19 MODERNA 0.25ML BOOSTER VACCINE Unknown Completed [facility] Influenza Virus Vaccine,quad Im,preserve Free 65+ (FLUAD) Unknown Completed [facility] Pneumococcal Polysaccharide, PPSV23 (PNEUMOVAX) Unknown Completed [facility] Influenza Virus Vaccine Unknown Completed [facility] Influenza High Dose Unknown Completed [facility] Pneumococcal 13 Conjugate, PCV13 (Prevnar 13) Unknown Completed [facility] Pneumococcal Polysaccharide, PPSV23 (PNEUMOVAX) Unknown Completed [facility] TDAP (ADACEL) VACCINE Unknown Completed [facility] Influenza High Dose Quad Unknown Completed [facility] SARS-COV-2 COVID-19 MODERNA 12+ YRS VACCINE Unknown Completed [facility] SARS-COV-2 COVID-19 MODERNA 0.25ML BOOSTER VACCINE Unknown Completed [facility] Influenza Virus Vaccine,quad Im,preserve Free 65+ (FLUAD) Unknown Completed [facility] SARS-COV-2 COVID-19 VACCINE 12 YRS+, BIVALENT 0.5ML, IM, (MODERNA-BLUE TOP) Unknown Completed [facility] SARS-COV-2 COVID 19 SCOTT SUCROSE VACCINE 12+, [id number], 0.3 ML (30 MCG), IM PFIZER (GUTIÉRREZ TOP) Unknown Completed [facility] Pneumococcal Polysaccharide, PPSV23 (PNEUMOVAX) Unknown Completed [facility] Influenza Virus Vaccine Unknown Completed [facility] Influenza High Dose Unknown Completed [facility] Pneumococcal 13 Conjugate, PCV13 (Prevnar 13) Unknown Completed [facility] Pneumococcal Polysaccharide, PPSV23 (PNEUMOVAX) Unknown Completed [facility] TDAP (ADACEL) VACCINE Unknown Completed [facility] Influenza High Dose Quad Unknown Completed [facility] SARS-COV-2 COVID-19 MODERNA 12+ YRS VACCINE Unknown Completed [facility] SARS-COV-2 COVID-19 MODERNA 0.25ML BOOSTER VACCINE Unknown Completed [facility] Influenza Virus Vaccine,quad Im,preserve Free 65+ (FLUAD) Unknown Completed [facility] SARS-COV-2 COVID-19 VACCINE 12 YRS+, BIVALENT 0.5ML, IM, (MODERNA-BLUE TOP) Unknown Completed [facility] SARS-COV-2 COVID 19 SCOTT SUCROSE VACCINE 12+, [id number], 0.3 ML (30 MCG), IM PFIZER (GUTIÉRREZ TOP) Unknown Completed [facility] Pneumococcal Polysaccharide, PPSV23 (PNEUMOVAX) Unknown Completed [facility] Influenza Virus Vaccine Unknown Completed [facility] Influenza High Dose Unknown Completed [facility] Pneumococcal 13 Conjugate, PCV13 (Prevnar 13) Unknown Completed [facility] Pneumococcal Polysaccharide, PPSV23 (PNEUMOVAX) Unknown Completed [facility] TDAP (ADACEL) VACCINE Unknown Completed [facility] Influenza High Dose Quad Unknown Completed [facility] SARS-COV-2 COVID-19 MODERNA 12+ YRS VACCINE Unknown Completed [facility] SARS-COV-2 COVID-19 MODERNA 0.25ML BOOSTER VACCINE Unknown Completed [facility] Influenza Virus Vaccine,quad Im,preserve Free 65+ (FLUAD) Unknown Completed [facility] SARS-COV-2 COVID-19 VACCINE 12 YRS+, BIVALENT 0.5ML, IM, (MODERNA-BLUE TOP) Unknown Completed [facility] SARS-COV-2 COVID 19 SCOTT SUCROSE VACCINE 12, , 0.3 ML (30 MCG), IM PFIZER (GUTIÉRREZ TOP) Unknown Completed [facility] Pneumococcal Polysaccharide, PPSV23 (PNEUMOVAX) Unknown Completed [facility] Influenza Virus Vaccine Unknown Completed [facility] Influenza High Dose Unknown Completed [facility] Pneumococcal 13 Conjugate, PCV13 (Prevnar 13) Unknown Completed [facility] Pneumococcal Polysaccharide, PPSV23 (PNEUMOVAX) Unknown Completed [facility] TDAP (ADACEL) VACCINE Unknown Completed [facility] Influenza High Dose Quad Unknown Completed [facility] SARS-COV-2 COVID-19 MODERNA 12+ YRS VACCINE Unknown Completed [facility] SARS-COV-2 COVID-19 MODERNA 0.25ML BOOSTER VACCINE Unknown Completed [facility] Influenza Virus Vaccine,quad Im,preserve Free 65+ (FLUAD) Unknown Completed [facility] SARS-COV-2 COVID-19 VACCINE 12 YRS+, BIVALENT 0.5ML, IM, (MODERNA-BLUE TOP) Unknown Completed [facility] SARS-COV-2 COVID 19 SCOTT SUCROSE VACCINE 12+, , 0.3 ML (30 MCG), IM PFIZER (GUTIÉRREZ TOP) Unknown Completed [facility] Vital Signs Vital Name Observation Time Observation Value Comments S ource Systolic blood pressure 2024-05-25 22:43:00 110 mm[Hg] [facility] Diastolic blood pressure 2024-05-25 22:43:00 79 mm[Hg] [facility] Heart rate 2024-05-25 22:43:00 128 /min Unive [facility] Body temperature 2024-05-25 22:43:[address] [facility] Respiratory rate 2024-05-25 22:43:00 24 /min [facility] Body height 2024-05-25 22:43:00 185.4 cm Univ [facility] Body weight 2024-05-25 22:43:00 122.108 kg [facility] BMI 2024-05-25 22:43:00 35.52 kg/m2 [facility] Oxygen saturation in Arterial blood by Pulse oximetry 2024-05-25 22:43:00 97 /min [facility] Systolic blood pressure 2023-12-04 15:04:00 128 mm[Hg] [facility] Diastolic blood pressure 2023-12-04 15:04:00 91 mm[Hg] [facility] Heart rate 2023-12-04 15:04:00 119 /min Unive [facility] Body temperature 2023-12-04 15:04:[address] [facility] Body height 2023-12-04 15:04:00 185.4 cm [facility] Body weight 2023-12-04 15:04:00 117.845 kg [facility] BMI 2023-12-04 15:04:00 34.28 kg/m2 [facility] Oxygen saturation in Arterial blood by Pulse oximetry 2023-12-04 15:04:00 95 /min [facility] Systolic blood pressure 2023-11-04 18:31:00 104 mm[Hg] [facility] Diastolic blood pressure 2023-11-04 18:31:00 71 mm[Hg] [facility] Heart rate 2023-11-04 18:31:00 75 /min Unive [facility] Body temperature 2023-11-04 18:31:[address] [facility] Body height 2023-11-04 18:31:00 185.4 cm [facility] Body weight 2023-11-04 18:31:00 121.745 kg [facility] BMI 2023-11-04 18:31:00 35.41 kg/m2 [facility] Oxygen saturation in Arterial blood by Pulse oximetry 2023-11-04 18:31:00 93 /min [facility] Systolic blood pressure 2023-11-01 18:14:00 117 mm[Hg] [facility] Diastolic blood pressure 2023-11-01 18:14:00 71 mm[Hg] [facility] Heart rate 2023-11-01 18:14:00 80 /min [facility] Body height 2023-11-01 18:14:00 185.4 cm [facility] Body weight 2023-11-01 18:14:00 124.376 kg [facility] BMI 2023-11-01 18:14:00 36.18 kg/m2 [facility] Oxygen saturation in Arterial blood by Pulse oximetry 2023-11-01 18:14:00 94 /min [facility] Systolic blood pressure 2023-09-27 18:14:00 116 mm[Hg] [facility] Diastolic blood pressure 2023-09-27 18:14:00 69 mm[Hg] [facility] Heart rate 2023-09-27 18:14:00 57 /min [facility] Body temperature 2023-09-27 18:14:[address] [facility] Body height 2023-09-27 18:14:00 185.4 cm [facility] Body weight 2023-09-27 18:14:00 124.558 kg [facility] BMI 2023-09-27 18:14:00 36.23 kg/m2 [facility] Oxygen saturation in Arterial blood by Pulse oximetry 2023-09-27 18:14:00 94 /min [facility] Systolic blood pressure 2023-08-21 18:59:00 122 mm[Hg] [facility] Diastolic blood pressure 2023-08-21 18:59:00 68 mm[Hg] [facility] Heart rate 2023-08-21 18:59:00 58 /min Unive [facility] Body height 2023-08-21 18:59:00 185.4 cm [facility] Body weight 2023-08-21 18:59:00 128.413 kg [facility] BMI 2023-08-21 18:59:00 37.35 kg/m2 [facility] Oxygen saturation in Arterial blood by Pulse oximetry 2023-08-21 18:59:00 95 /min [facility] Systolic blood pressure 2023-08-16 19:09:00 123 mm[Hg] [facility] Diastolic blood pressure 2023-08-16 19:09:00 77 mm[Hg] [facility] Heart rate 2023-08-16 19:09:00 69 /min Unive [facility] Respiratory rate 2023-08-16 19:09:00 18 /min [facility] Body height 2023-08-16 19:09:00 182.9 cm [facility] Body weight 2023-08-16 19:09:00 130.999 kg [facility] BMI 2023-08-16 19:09:00 39.17 kg/m2 [facility] Oxygen saturation in Arterial blood by Pulse oximetry 2023-08-16 19:09:00 94 /min [facility] Systolic blood pressure 2023-08-06 20:08:00 138 mm[Hg] [facility] Diastolic blood pressure 2023-08-06 20:08:00 78 mm[Hg] [facility] Heart rate 2023-08-06 20:08:00 77 /min Unive [facility] Body temperature 2023-08-06 20:08:[address] [facility] Respiratory rate 2023-08-06 20:08:00 18 /min [facility] Body height 2023-08-06 20:08:00 182.9 cm [facility] Body weight 2023-08-06 20:08:00 128.459 kg [facility] BMI 2023-08-06 20:08:00 38.41 kg/m2 [facility] Oxygen saturation in Arterial blood by Pulse oximetry 2023-08-06 20:08:00 97 /min [facility] Systolic blood pressure 2023-03-19 20:06:00 145 mm[Hg] [facility] Diastolic blood pressure 2023-03-19 20:06:00 109 mm[Hg] [facility] Heart rate 2023-03-19 20:06:00 64 /min Unive [facility] Body temperature 2023-03-19 20:06:[address] [facility] Respiratory rate 2023-03-19 20:06:00 19 /min [facility] Body height 2023-03-19 20:06:00 185.4 cm [facility] Body weight 2023-03-19 20:06:00 122.471 kg [facility] BMI 2023-03-19 20:06:00 35.62 kg/m2 [facility] Oxygen saturation in Arterial blood by Pulse oximetry 2023-03-19 20:06:00 97 /min [facility] Systolic blood pressure 2023-02-15 19:24:00 115 mm[Hg] [facility] Diastolic blood pressure 2023-02-15 19:24:00 76 mm[Hg] [facility] Heart rate 2023-02-15 19:24:00 70 /min Unive [facility] Body temperature 2023-02-15 19:24:[address] [facility] Respiratory rate 2023-02-15 19:24:00 16 /min [facility] Body height 2023-02-15 19:24:00 185.4 cm [facility] Body weight 2023-02-15 19:24:00 121.292 kg [facility] BMI 2023-02-15 19:24:00 35.28 [facility]2 [facility] in Arterial blood by Pulse oximetry 2023-02-15 19:24:00 95 /min [facility] Systolic blood pressure 2023-01-22 21:04:41 145 mm[Hg] [facility] Diastolic blood pressure 2023-01-22 21:04:41 77 mm[Hg] [facility] Heart rate 2023-01-22 21:04:41 61 /min Unive [facility] Body temperature 2023-01-22 21:04:[address] [facility] Respiratory rate 2023-01-22 21:04:41 18 /min [facility] Oxygen saturation in Arterial blood by Pulse oximetry 2023-01-22 21:04:41 96 /min [facility] Body weight 2023-01-22 18:55:00 122.471 kg [facility] BMI 2023-01-22 18:55:00 35.62 kg/m2 [facility] Systolic blood pressure 2022-09-03 16:56:00 123 mm[Hg] [facility] Diastolic blood pressure 2022-09-03 16:56:00 79 mm[Hg] [facility] Heart rate 2022-09-03 16:56:00 64 /min Unive [facility] Body temperature 2022-09-03 16:56:[address] [facility] Respiratory rate 2022-09-03 16:56:00 18 /min [facility] Body height 2022-09-03 16:56:00 185.4 cm [facility] Body weight 2022-09-03 16:56:00 121.564 kg [facility] BMI 2022-09-03 16:56:00 35.36 kg/m2 [facility] Oxygen saturation in Arterial blood by Pulse oximetry 2022-09-03 16:56:00 95 /min [facility] Systolic blood pressure 2022-09-03 16:58:00 123 mm[Hg] [facility] Diastolic blood pressure 2022-09-03 16:58:00 79 mm[Hg] [facility] Heart rate 2022-09-03 16:58:00 64 /min Unive [facility] Body temperature 2022-09-03 16:58:[address] [facility] Respiratory rate 2022-09-03 16:58:00 18 /min [facility] Body height 2022-09-03 16:58:00 185.4 cm [facility] Body weight 2022-09-03 16:58:00 121.564 kg [facility] BMI 2022-09-03 16:58:00 35.36 kg/m2 [facility] Oxygen saturation in Arterial blood by Pulse oximetry 2022-09-03 16:58:00 95 /min [facility] Systolic blood pressure 2022-08-22 19:19:00 102 mm[Hg] [facility] Diastolic blood pressure 2022-08-22 19:19:00 70 mm[Hg] [facility] Body height 2022-08-22 19:19:00 185.4 cm [facility] Body weight 2022-08-22 19:19:00 122.018 kg [facility] BMI 2022-08-22 19:19:00 35.49 kg/m2 [facility] Systolic blood pressure 2022-07-31 22:29:00 116 mm[Hg] [facility] Diastolic blood pressure 2022-07-31 22:29:00 78 mm[Hg] [facility] Heart rate 2022-07-31 22:29:00 82 /min [facility] Oxygen saturation in Arterial blood by Pulse oximetry 2022-07-31 22:29:00 93 /min [facility] Body temperature 2022-07-31 22:26:[address] [facility] Respiratory rate 2022-07-31 22:26:00 16 /min [facility] Body height 2022-07-31 22:26:00 185.4 cm [facility] Body weight 2022-07-31 22:26:00 123.288 kg [facility] BMI 2022-07-31 22:26:00 35.86 kg/m2 [facility] Heart rate 2022-05-31 02:30:00 67 /min Unive [facility] Respiratory rate 2022-05-31 02:30:00 15 /min [facility] Oxygen saturation in Arterial blood by Pulse oximetry 2022-05-31 02:30:00 95 /min [facility] Systolic blood pressure 2022-05-31 01:20:00 138 mm[Hg] [facility] Diastolic blood pressure 2022-05-31 01:20:00 87 mm[Hg] [facility] Body temperature 2022-05-30 22:50:[address] [facility] Body height 2022-05-30 22:50:00 185.4 cm [facility] Body weight 2022-05-30 22:50:00 124.286 kg [facility] BMI 2022-05-30 22:50:00 36.15 kg/m2 [facility] Systolic blood pressure 2022-05-30 21:03:00 129 mm[Hg] [facility] Diastolic blood pressure 2022-05-30 21:03:00 80 mm[Hg] [facility] Heart rate 2022-05-30 21:03:00 63 /min Unive [facility] Respiratory rate 2022-05-30 21:03:00 19 /min [facility] Body height 2022-05-30 21:03:00 185.4 cm [facility] Body weight 2022-05-30 21:03:00 124.558 kg [facility] BMI 2022-05-30 21:03:00 36.23 kg/m2 [facility] Oxygen saturation in Arterial blood by Pulse oximetry 2022-05-30 21:03:00 93 /min [facility] Systolic blood pressure 2022-04-03 18:28:00 144 mm[Hg] [facility] Diastolic blood pressure 2022-04-03 18:28:00 79 mm[Hg] [facility] Heart rate 2022-04-03 18:28:00 74 /min Unive [facility] Body temperature 2022-04-03 18:28:[address] [facility] Respiratory rate 2022-04-03 18:28:00 20 /min [facility] Body height 2022-04-03 18:28:00 185.4 cm [facility] Body weight 2022-04-03 18:28:00 125.692 kg [facility] BMI 2022-04-03 18:28:00 36.56 kg/m2 [facility] Oxygen saturation in Arterial blood by Pulse oximetry 2022-04-03 18:28:00 95 /min [facility] Systolic blood pressure 2022-02-20 18:28:00 121 mm[Hg] [facility] Diastolic blood pressure 2022-02-20 18:28:00 73 mm[Hg] [facility] Heart rate 2022-02-20 18:26:00 99 /min [facility] Body temperature 2022-02-20 18:26:[address] [facility] Body height 2022-02-20 18:26:00 185.4 cm [facility] Body weight 2022-02-20 18:26:00 131.09 kg [facility] BMI 2022-02-20 18:26:00 38.13 kg/m2 [facility] Oxygen saturation in Arterial blood by Pulse oximetry 2022-02-20 18:26:00 96 /min [facility] BP Systolic 2023-12-26 09:17:00 120 mm[Hg] Step hen Jerrell Melchor BP Diastolic 2023-12-26 09:17:00 87 mm[Hg] Amor phen Jerrell Melchor Weight Measured 2023-12-26 09:17:00 268.00 pounds Umesh Melchor Height Measured 2023-12-26 09:17:00 72.00 inches Umesh Jerrell Melchor Body Temperature 2023-12-26 09:17:00 97.40 degrees Umesh Melchor Heart Rate 2023-12-26 09:17:00 115.00 /min Step hen Jerrell Melchor Respiratory Rate 2023-12-26 09:17:00 Umeshlevar Melchor BP Systolic 2021-07-18 10:43:00 138 mm[Hg] Step hen Jerrell Melchor BP Diastolic 2021-07-18 10:43:00 69 mm[Hg] Amor phen F Ruiz Weight Measured 2021-07-18 10:43:00 290.60 pounds Umesh F Ruiz Height Measured 2021-07-18 10:43:00 72.00 inches Umesh F Ruiz Body Temperature 2021-07-18 10:43:00 98.50 degrees Umesh F Ruiz Heart Rate 2021-07-18 10:43:00 68.00 /min Hortencia en F Ruiz Respiratory Rate 2021-07-18 10:43:00 18.00 /min Umesh F Ruiz BP Systolic 2021-06-21 15:47:00 127 mm[Hg] Step hen F Ruiz BP Diastolic 2021-06-21 15:47:00 89 mm[Hg] Amor phen F Ruiz Weight Measured 2021-06-21 15:47:00 287.60 pounds Umesh F Ruiz Height Measured 2021-06-21 15:47:00 72.00 inches Umesh F Ruiz Body Temperature 2021-06-21 15:47:00 97.90 degrees Umesh F Ruiz Heart Rate 2021-06-21 15:47:00 74.00 /min Hortencia en F Ruiz Respiratory Rate 2021-06-21 15:47:00 16.00 /min Umesh F Ruiz BP Systolic 2021-06-20 14:33:00 125 mm[Hg] Step hen F Ruiz BP Diastolic 2021-06-20 14:33:00 76 mm[Hg] Amor phen F Ruiz Weight Measured 2021-06-20 14:33:00 289.00 pounds Umesh F Ruiz Height Measured 2021-06-20 14:33:00 72.00 inches Umesh F Ruiz Body Temperature 2021-06-20 14:33:00 98.00 degrees Umesh F Ruiz Heart Rate 2021-06-20 14:33:00 64.00 /min Hortencia en F Ruiz Respiratory Rate 2021-06-20 14:33:00 21.00 /min Umesh F Ruiz BP Systolic 2021-06-17 10:45:00 121 mm[Hg] Step hen F Ruiz BP Diastolic 2021-06-17 10:45:00 76 mm[Hg] Amor phen F Ruiz Weight Measured 2021-06-17 10:45:00 286.20 pounds Umesh F Ruiz Height Measured 2021-06-17 10:45:00 72.00 inches Umesh F Ruiz Body Temperature 2021-06-17 10:45:00 98.40 degrees Umesh F Ruiz Heart Rate 2021-06-17 10:45:00 63.00 /min Hortencia en F Ruiz Respiratory Rate 2021-06-17 10:45:00 Umesh F Ruiz BP Systolic 2021-06-08 10:33:00 154 mm[Hg] Step hen F Ruiz BP Diastolic 2021-06-08 10:33:00 100 mm[Hg] Amor phen F Ruiz Weight Measured 2021-06-08 10:33:00 285.00 pounds Umesh F Ruiz Height Measured 2021-06-08 10:33:00 72.00 inches Umesh F Ruiz Body Temperature 2021-06-08 10:33:00 98.10 degrees Umesh F Ruiz Heart Rate 2021-06-08 10:33:00 78.00 /min Hortencia en F Ruiz Respiratory Rate 2021-06-08 10:33:00 Umesh F Ruiz BP Systolic 2019-02-05 11:31:00 122 mm[Hg] Step hen F Ruiz BP Diastolic 2019-02-05 11:31:00 68 mm[Hg] Amor phen F Ruiz Weight Measured 2019-02-05 11:31:00 281.00 pounds Umesh F Ruiz Height Measured 2019-02-05 11:31:00 72.00 inches Umesh Melchor Body Temperature 2019-02-05 11:31:00 98.60 degrees Umesh Jerrell Melchor Heart Rate 2019-02-05 11:31:00 52.00 /min Hortencia en F Ruiz Respiratory Rate 2019-02-05 11:31:00 18.00 /min Umesh Jerrell Melchor Procedures Procedure Date / Time Performed Performing Clinician Source XR HIPS 2 VW RIGHT 2024-05-25 23:52:[address] [facility] XR HIPS 2 VW LEFT 2023-12-04 16:58:[address] [facility] CT THORAX W CONTRAST 2023-09-27 20:51:[address] [facility] FLU VACC([id number]),65+YR,0.5 ML,IM,ADJUVANTED,QUAD(FLU AD) 2023-09-27 18:28:[address] [facility] SARS-COV-2 COVID 19 SCOTT SUCROSE VACCINE 12+, , 0.3 ML (30 MCG), IM PFIZER (GUTIÉRREZ TOP) 2023-09-27 18:28:[address] [facility] TRANSTHORACIC ECHO (TTE) COMPLETE W/ CONTRAST 2023-08-19 22:13:[address] [facility] PROSTATIC SPECIFIC ANTIGEN 2023-08-06 20:57:[address] [facility] FREE T4 2023-08-06 20:57:[address] [facility] THYROID STIMULATING HORMONE 2023-08-06 20:57:[address] [facility] LIPID PANEL ([id number])(TOTAL CHOLESTEROL, TRIGLYCERIDES, HDL) 2023-08-06 20:57[facility]00 [facility] GLYCOSYLATED HEMOGLOBIN (A1C) 2023-08-06 20:57:[address] [facility] URINALYSIS 2023-08-06 20:57:00 Suri Conteh [facility] HCV ANTIBODY 2023-08-06 20:57:[address] HEPATITIS C VIRUS (HCV) BY QUANTITATIVE NAAT 2023-08-06 20:57:[address] [facility] INSURANCE CORRESPONDENCE 2023-08-05 06:01:00 Doc tor Unassigned, [place] [facility] ASSIGNMENT OF BENEFITS 2023-03-19 21:48:31 Docto r Unassigned, [place] [facility] XR WRIST 3+ VW RIGHT 2023-03-19 20:44:[address] [facility] CONSENT/REFUSAL FOR DIAGNOSIS AND TREATMENT 2023-03-19 19:50:16 Doctor Unassigned, [place] [facility] XR WRIST 3+ VW RIGHT 2023-01-22 19:58:[address] [facility] CONSENT/REFUSAL FOR DIAGNOSIS AND TREATMENT 2023-01-22 18:51:11 Doctor Unassigned, [place] [facility] EXTERNAL PROVIDER RECORDS 2022-10-23 05:01:00 Do ctor Unassigned, [place] [facility] SARS-COV-2 COVID-19 VACCINE 12 YRS+, BIVALENT 0.5ML, IM (MODERNA BOOSTER) 2022-09-03 17:39:[address] [facility] ASSIGNMENT OF BENEFITS 2022-08-22 18:17:50 Docto r Unassigned, [place] [facility] MEDICATION CORRESPONDENCE 2022-07-31 06:01:00 Do ctor Unassigned, [place] [facility] CT ANGIOGRAM ABDOMEN/PELVIS 2022-05-31 01:20:28 Singer [facility] URINALYSIS 2022-05-31 00:13:00 Singer [facility] LIPASE 2022-05-30 23:54:00 [facility] COMP. METABOLIC PANEL ([id number]) 2022-05-30 23:54:00 Singer [facility] CBC WITH DIFF 2022-05-30 23:54:00 [place] [facility] CONSENT/REFUSAL FOR DIAGNOSIS AND TREATMENT 2022-05-30 22:25:32 Doctor Unassigned, [place] [facility] FLU VACC(),65+YR,0.5 ML,IM,ADJUVANTED,QUAD(FLU AD) 2022-04-03 19:13:[address] [facility] BI DIAGNOSTIC TOMOSYNTHESIS BILATERAL 2022-03-26 19:39:00 [facility] HOME HEALTH - OTHER 2022-03-22 05:01:00 Doctor U nassignluisa, [place] [facility] SARS-COV-2 COVID-19 VACCINE BOOSTER,0.25ML,IM (MODERNA) 2022-02-27 20:41:38 Doctor Unassigned, [place] [facility] Encounters Start Date/Time End Date/Time Encounter Type Admission Type Attending [facility] Care Facility Care Department Encounter ID Source 2021-10-26 09:19:24 Outpatient R JOSE [facility] [id number] [facility] 2021-09-18 14:37:35 Outpatient R ARIANE HERNÁNDEZ [facility] TITI [id number] [facility] 2021-09-18 10:29:53 Outpatient R ARIANE HERNÁNDEZ [facility] T[facility] [id number] [facility] 2021-07-12 14:55:05 Outpatient R AYUSH CAGE [facility] OPH [id number] [facility] 2021-04-30 19:37:02 Emergency [facility] [id number] [facility] 2021-04-30 08:48:11 Outpatient R ARIANE HERNÁNDEZ [facility] TITI [id number] [facility] 2024-05-26 00:00:00 2024-05-26 18:13:24 Telephone Shannan Ocasiomiriam [facility] 1..840.114 350.1.13.10 4.2.7.2.686 [id number] [facility] 2024-05-25 17:33:10 2024-05-25 23:59:00 Outpatient R MORGAN OCASIOANISHA [facility] [id number] [facility] 2024-05-25 17:33:10 2024-05-25 23:59:00 Hospital Encounter Brendan Ocasio [facility] 1..840.114 350.1.13.10 4.2.7.2.686 [id number] [facility] 2024-05-25 16:20:00 2024-05-25 17:33:52 Urgent Care Brendan Ocasio Unknown, Attending [facility] 1..840.114 350.1.13.10 4.2.7.2.686 [id number] [facility] 2024-05-06 13:30:00 2024-05-06 13:30:00 Outpatient R ODILIA BLAKELY OGECHUKWU [facility] [id number] [facility] 2024-05-04 13:00:00 2024-05-04 13:00:00 Outpatient Ghazal MONTAGUE SURI [facility] [id number] [facility] 2024-04-29 00:00:00 2024-04-29 14:14:05 Pre Visit Outreach Caryl Santos April [facility] 1..840.114 350.1.13.10 4.2.7.2.686 [id number] [facility] 2024-04-22 16:00:00 2024-04-22 16:00:00 Outpatient SASKIA BUENO [facility] [id number] [facility] 2024-03-03 14:30:00 2024-03-03 14:30:00 Outpatient VAMSI ELLIS SHIWAN [facility] [id number] [facility] 2024-01-15 13:00:00 2024-01-15 13:00:00 Outpatient R REDDY ODILIA BLAKELY ODILIA [facility] [id number] [facility] 2023-12-20 00:00:00 2024-01-14 09:10:42 [facility]ill [facility] 1..840.114 350.1.13.10 4.2.7.2.686 [id number] [facility] 2023-12-05 00:00:00 2024-01-11 18:24:20 Patient Secure Msg Doctor Unassigned, [place] [facility] 1..840.114 350.1.13.10 4.2.7.2.686 [id number] [facility] 2024-01-03 00:00:00 2024-01-03 12:44:57 Telephone Bertha Oneil [facility] 1.2.840.114 350.1.13.10 4.2.7.2.686 [id number] [facility] 2023-12-26 09:11:59 2023-12-26 09:11:59 Outpatient [facility] [id number] Umesh Melchor 2023-12-26 00:00:00 2023-12-26 00:00:00 Outpatient Visit [facility] [id number] Umesh Melchor 2023-12-24 11:00:00 2023-12-24 11:00:00 Outpatient R VAMSI BONNER SHIWAN [facility] [id number] [facility] 2023-12-23 00:00:00 2023-12-23 14:28:46 Telephone Vamsi Bonner [facility] 1.2.840.114 350.1.13.10 4.2.7.2.686 [id number] [facility] 2023-12-04 11:14:54 2023-12-04 23:59:00 Hospital Encounter Odilia Blakely [facility] 1.2.840.114 350.1.13.10 4.2.7.2.686 [id number] [facility] 2023-12-04 15:30:00 2023-12-04 15:30:00 Office Visit Odilia Blakely [facility] 1.2.840.114 350.1.13.10 4.2.7.2.686 [id number] [facility] 2023-12-04 15:30:00 2023-12-04 10:36:12 Outpatient R ODILIA BLAKELY [facility] [id number] [facility] 2023-11-15 14:00:00 2023-11-15 14:00:00 Outpatient R SURI MONTAGUE [facility] [id number] [facility] 2023-11-04 13:30:00 2023-11-04 14:47:10 Outpatient R ODILIA BLAKELY OGECHUKWU [facility] [id number] [facility] 2023-11-04 13:30:00 2023-11-04 14:47:10 Office Visit Odilia Blakely [facility] 1.2.840.114 350.1.13.10 4.2.7.2.686 [id number] [facility] 2023-11-01 13:30:00 2023-11-01 14:00:54 Outpatient R MONTAGUESURI [facility] [id number] [facility] 2023-11-01 13:30:00 2023-11-01 14:00:54 [facility] 1.2.840.114 350.1.13.10 4.2.7.2.686 [id number] [facility] 2023-10-09 00:00:00 2023-10-09 00:00:00 RefChirag Zafarssica [facility] N[facility] 1.2.840.114 350.1.13.10 4.2.7.2.686 [id number] [facility] 2023-10-09 00:00:00 2023-10-09 00:00:00 Refill ReddyYolandadutch [facility] NAL [facility] 1.2.840.114 350.1.13.10 4.2.7.2.686 [id number] 044 [id number] [facility] 2023-10-04 00:00:00 2023-10-04 00:00:00 [facility] 1.2.840.114 350.1.13.10 4.2.7.2.686 [id number] 059 [id number] [facility] 2023-10-04 00:00:00 2023-10-04 00:00:00 [facility] 1.2.840.114 350.1.13.10 4.2.7.2.686 [id number] [id number] [facility] 2023-09-27 14:44:33 2023-09-27 23:59:00 Outpatient R SURI CONTEH [facility] [id number] [facility] 2023-09-27 14:44:33 2023-09-27 23:59:00 Hospital Encounter Suri Conteh [facility] 1.2.840.114 350.1.13.10 4.2.7.2.686 [id number] [facility] 2023-09-27 13:45:00 2023-09-27 13:52:45 Aluminum Polisher Visit 2, [facility] 1.2.840.114 350.1.13.10 4.2.7.2.686 [id number] [facility] 2023-09-27 13:00:00 2023-09-27 13:43:19 Office Visit Suri Conteh [facility] 1.2.840.114 350.1.13.10 4.2.7.2.686 [id number] [facility] 2023-09-12 00:00:00 2023-09-12 00:00:00 [facility] 1.2.840.114 350.1.13.10 4.2.7.2.686 [id number] [facility] 2023-08-22 00:00:00 2023-08-22 00:00:00 [facility] 1.2.840.114 350.1.13.10 4.2.7.2.686 [id number] [facility] 2023-08-21 13:00:00 2023-08-21 13:22:00 Outpatient [facility] [id number] [facility] 2023-08-21 13:00:00 2023-08-21 13:22:00 Office Visit Norman [facility] BU[facility]ING 1.2.840.114 350.1.13.10 4.2.7.2.686 [id number] [facility] 2023-08-19 15:21:01 2023-08-19 23:59:00 Outpatient R [facility]EN [facility] [id number] [facility] 2023-08-19 15:21:01 2023-08-19 23:59:00 [facility] 1.2.840.114 350.1.13.10 4.2.7.2.686 [id number] [facility] 2023-08-19 00:00:00 2023-08-19 00:00:00 Patient Secure Msg [facility] 1.2.840.114 350.1.13.10 4.2.7.2.686 [id number] [facility] 2023-08-16 13:30:00 2023-08-16 13:50:22 Outpatient R SURI MONTAGUE [facility] [id number] [facility] 2023-08-16 13:30:00 2023-08-16 13:50:22 Office Visit Suri Montague [facility] 1.2.840.114 350.1.13.10 4.2.7.2.686 [id number] [facility] 2023-08-09 00:00:00 2023-08-09 00:00:00 Patient Secure Msg Doctor Unassigned, [place] [facility] 1.284.114 350.1.13.10 4.2.7.2.686 [id number] [facility] 2023-08-06 14:45:00 2023-08-06 15:00:00 Aluminum Polisher Visit 2, Adc Lab Chirag Contehssica [facility] 1..840.114 350.1.13.10 4.2.7.2.686 [id number] [facility] 2023-08-06 13:30:00 2023-08-06 14:47:52 Outpatient R SURI CONTEH [facility] [id number] [facility] 2023-08-06 13:30:00 2023-08-06 14:47:52 Office Visit Suri Conteh [facility] 1..840.114 350.1.13.10 4.2.7.2.686 [id number] [facility] 2023-08-06 00:00:00 2023-08-06 00:00:00 Telephone Leigh Austin [facility] 1..840.114 350.1.13.10 4.2.7.2.686 [id number] [facility] 2023-08-06 00:00:00 2023-08-06 00:00:00 Patient Outreach Sheryl Rodriguez [facility] 1.2.84.114 350.1.13.10 4.2.7.2.686 [id number] [facility] 2023-08-06 00:00:00 2023-08-06 00:00:00 Patient Secure Msg Doctor Unassigned, [place] [facility] 1.0.114 350.1.13.10 4.2.7.2.686 [id number] [facility] 2023-08-05 14:00:00 2023-08-05 14:00:00 Outpatient R NORMAN MARLEENALVAREZ [facility] [id number] [facility] 2023-08-05 00:00:00 2023-08-05 00:00:00 Orders Only Doctor Unassigned, [place] [facility] 1.114 350.1.13.10 4.2.7.2.686 [id number] [facility] 2023-08-02 08:30:00 2023-08-02 08:30:00 Outpatient R SURI CONTEH [facility] [id number] [facility] 2023-07-17 15:00:00 2023-07-17 15:00:00 Outpatient R OBI-JANES , CORBIN OBI-JANES , CORBIN [facility] [id number] [facility] 2023-07-08 00:00:00 2023-07-08 00:00:00 Patient Secure Msg Doctor Unassigned, [place] [facility] .84.114 350.1.13.10 4.2.7.2.686 [id number] [facility] 2023-06-14 00:00:00 2023-06-14 00:00:00 RefSaskia Hess [facility] 1.84.114 350.1.13.10 4.2.7.2.686 [id number] [facility] 2023-03-25 00:00:00 2023-03-25 00:00:00 Darien Norman Leigh [facility] PROFESSIO [facility] 1.2.840.114 350.1.13.10 4.2.7.2.686 [id number] [facility] 2023-03-19 15:08:00 2023-03-19 16:49:00 Emergency X [facility] ERT [id number] [facility] 2023-03-19 15:08:00 2023-03-19 16:49:00 Emergency Barbie Wei S [facility] 1.2.840.114 350.1.13.10 4.2.7.2.686 [id number] [facility] 2023-03-15 00:00:00 2023-03-15 00:00:00 Patient Secure Msg Doctor Unassigned, [place] [facility] 1.2.840.114 350.1.13.10 4.2.7.2.686 [id number] [facility] 2023-03-15 00:00:00 2023-03-15 00:00:00 Patient Secure Msg Doctor Unassigned, [place] [facility] 1.2.840.114 350.1.13.10 4.2.7.2.686 [id number] [facility] 2023-03-13 00:00:00 2023-03-13 00:00:00 Outpatient R ODILIA BLAKELY OGECHUKWU [facility] [id number] [facility] 2023-03-06 13:30:00 2023-03-06 13:30:00 Outpatient R ODILIA BLAKELY OGECHUKWU [facility] [id number] [facility] 2023-03-06 00:00:00 2023-03-06 00:00:00 Telephone Odilia Blakely [facility] COUNT INCLUDES THE [facility] 1.2.840.114 350.1.13.10 4.2.7.2.686 [id number] [facility] 2023-02-27 00:00:00 2023-02-27 00:00:00 Refill Odilia Blakely [facility] 1.2.840.114 350.1.13.10 4.2.7.2.686 [id number] [facility] 2023-02-19 00:00:00 2023-02-19 00:00:00 Telephone Katherin Pena [facility] 1..840.114 350.1.13.10 4.2.7.2.686 [id number] [facility] 2023-02-15 15:30:00 2023-02-15 23:59:00 Outpatient R ODILIA BLAKELY OGECHUKWU [facility] [id number] [facility] 2023-02-15 15:30:00 2023-02-15 23:59:00 Hospital Encounter Odilia Blakely [facility] 1.2.840.114 350.1.13.10 4.2.7.2.686 [id number] [facility] 2023-02-15 14:30:00 2023-02-15 16:04:48 Office Visit Odilia Blakely [facility] 1.2.840.114 350.1.13.10 4.2.7.2.686 [id number] [facility] 2023-02-15 00:00:00 2023-02-15 00:00:00 Refill Odilia Blakely [facility] 1.2.840.114 350.1.13.10 4.2.7.2.686 [id number] [facility] 2023-02-13 11:30:00 2023-02-13 11:30:00 Outpatient R ODILIA [facility]LAKELY [facility] [id number] [facility] 2023-02-13 00:00:00 2023-02-13 00:00:00 RefOdilia Morales [facility] 1.2.840.114 350.1.13.10 4.2.7.2.686 [id number] [facility] 2023-01-28 11:00:00 2023-01-28 11:00:00 Outpatient R ODILIA BLAKELY ODILIA [facility] [id number] [facility] 2023-01-22 13:57:00 2023-01-22 16:09:00 Emergency X ABRAN ELENITA [facility] [id number] [facility] 2023-01-22 13:57:00 2023-01-22 16:09:00 Emergency Abran Elenita [facility] 1..840.114 350.1.13.10 4.2.7.2.686 [id number] [facility] 2022-12-25 00:00:00 2022-12-25 00:00:00 Leigh Stoddard [facility] 1.2.840.114 350.1.13.10 4.2.7.2.686 [id number] [facility] 2022-10-23 00:00:00 2022-10-23 00:00:00 Orders Only Doctor Unassigned, [place] [facility] 1.2.840.114 350.1.13.10 4.2.7.2.686 [id number] [facility] 2022-10-19 00:00:00 2022-10-19 00:00:00 Telephone Brielle Saskia [facility] 1.2.840.114 350.1.13.10 4.2.7.2.686 [id number] [facility] 2022-10-18 00:00:00 2022-10-18 00:00:00 Refill Leigh Austin [facility] 1.2.840.114 350.1.13.10 4.2.7.2.686 [id number] [facility] 2022-09-26 00:00:00 2022-09-26 00:00:00 Refill Odilia Blakely [facility] 1.2.840.114 350.1.13.10 4.2.7.2.686 [id number] [facility] 2022-09-21 00:00:00 2022-09-21 00:00:00 Refill Odilia Blakely [facility] 1.2.840.114 350.1.13.10 4.2.7.2.686 [id number] [facility] 2022-09-04 00:00:00 2022-09-04 00:00:00 Patient Secure Msg Doctor Unassigned, [place] [facility] 1.2.840.114 350.1.13.10 4.2.7.2.686 [id number] [facility] 2022-09-03 10:30:00 2022-09-03 11:38:46 Outpatient R ODILIA BLAKELY OGECHUKWU [facility] [id number] [facility] 2022-09-03 10:30:00 2022-09-03 11:38:46 Office Visit [facility] THE [facility] 1.2.840.114 350.1.13.10 4.2.7.2.686 [id number] [facility] 2022-09-03 11:00:00 2022-09-03 11:37:55 Office Visit Odilia Blakely [facility] 1.2.840.114 350.1.13.10 4.2.7.2.686 [id number] [facility] 2022-08-28 00:00:00 2022-08-28 00:00:00 Patient Secure Msg Doctor Unassigned, [place] [facility] 1.2.840.114 350.1.13.10 4.2.7.2.686 [id number] [facility] 2022-08-27 00:00:00 2022-08-27 00:00:00 Telephone Odilia Blakely [facility] 1.2.840.114 350.1.13.10 4.2.7.2.686 [id number] [facility] 2022-08-23 14:15:00 2022-08-23 14:28:52 Outpatient RAEGAN VELEZ [facility] [id number] [facility] 2022-08-22 13:30:00 2022-08-22 13:45:00 Aluminum Polisher Visit Pob, Adc Lab Main Ariane Hernández [facility] 1.2.840.114 350.1.13.10 4.2.7.2.686 [id number] [facility] 2022-08-22 13:00:00 2022-08-22 13:35:20 Outpatient R [facility]MAN[facility]ENFORMERLY [facility] [id number] [facility] 2022-08-22 13:00:00 2022-08-22 13:35:20 [facility] 1..840.114 350.1.13.10 4.2.7.2.686 [id number] [facility] 2022-08-22 13:00:00 2022-08-22 13:00:00 Outpatient R NORMAN, [facility] [id number] [facility] 2022-08-22 13:00:00 2022-08-22 13:00:00 [facility] R [facility] [id number] [facility] 2022-08-22 13:00:00 2022-08-22 13:00:00 Outpatient R [facility] [id number] [facility] 2022-08-22 13:00:00 2022-08-22 13:00:00 Outpatient R NORMAN [facility] [id number] [facility] 2022-08-22 13:00:00 2022-08-22 13:00:00 Outpatient R NORMAN, [facility] [id number] [facility] 2022-08-22 00:00:00 2022-08-22 00:00:00 Orders Only Doctor Unassigned, [place] [facility] .2.840.114 350.1.13.10 4.2.7.2.686 [id number] [facility] 2022-08-16 10:30:00 2022-08-16 10:30:00 Outpatient R RAEGAN ELLSWORTH [facility] [id number] [facility] 2022-08-02 14:45:00 2022-08-02 14:45:00 Outpatient R RAEGAN ELLSWORTH [facility] [id number] [facility] 2022-08-01 08:00:00 2022-08-01 08:00:00 Outpatient R [facility] [id number] [facility] 2022-07-31 16:30:00 2022-07-31 17:02:43 Outpatient R ARIANE HERNÁNDEZ [facility] [id number] [facility] 2022-07-31 16:30:00 2022-07-31 17:02:43 Office Visit Ariane Hernández [facility] COUNT INCLUDES THE [facility] 1.2.840.114 350.1.13.10 4.2.7.2.686 [id number] [facility] 2022-07-31 00:00:00 2022-07-31 00:00:00 Telephone Ariane Hernández [facility] 1.2.840.114 350.1.13.10 4.2.7.2.686 [id number] [facility] 2022-07-31 00:00:00 2022-07-31 00:00:00 Orders Only Doctor Unassigned, [place] [facility] 1.2.840.114 350.1.13.10 4.2.7.2.686 [id number] [facility] 2022-06-25 00:00:00 2022-06-25 00:00:00 Leigh Stoddard [facility] PROFESSIO COUNT INCLUDES THE [facility] 1.2.840.114 350.1.13.10 4.2.7.2.686 [id number] [facility] 2022-05-30 16:51:00 2022-05-30 21:00:00 Emergency Chance Cardoza [facility] 1.2.840.114 350.1.13.10 4.2.7.2.686 [id number] [facility] 2022-05-30 15:30:00 2022-05-30 16:28:12 Outpatient R [facility] [id number] 2022-05-30 15:30:00 2022-05-30 16:00:00 Office Visit Elizabeth Lipscomb [facility] 1.840.114 350.1.13.10 4.2.7.2.686 [id number] [facility] 2022-05-30 15:30:00 2022-05-30 15:30:00 [facility] [id number] [facility] 2022-05-30 00:00:00 2022-05-30 00:00:00 Telephone Ariane Hernández [facility] 1.840.114 350.1.13.10 4.2.7.2.686 [id number] [facility] 2022-05-30 00:00:00 2022-05-30 00:00:00 Telephone Elizabeth Lipscomb [facility] ..114 350.1.13.10 4.2.7.2.686 [id number] [facility] 2022-04-27 00:00:00 2022-04-27 00:00:00 Refill Leigh Austin [facility] .840.114 350.1.13.10 4.2.7.2.686 [id number] [facility] 2022-04-20 00:00:00 2022-04-20 00:00:00 Refill Dayanna Goldstein [facility] 1.840.114 350.1.13.10 4.2.7.2.686 [id number] [facility] 2022-04-17 00:00:00 2022-04-17 00:00:00 Telephone Dayanna Goldstein [facility] 1.2.840.114 350.1.13.10 4.2.7.2.686 [id number] [facility] 2022-04-16 00:00:00 2022-04-16 00:00:00 Telephone Dayanna Goldstein [facility] 1.2.840.114 350.1.13.10 4.2.7.2.686 [id number] [facility] 2022-04-10 00:00:00 2022-04-10 00:00:00 Telephone Dayanna Goldstein [facility] 1.2.840.114 350.1.13.10 4.2.7.2.686 [id number] [facility] 2022-04-03 14:30:00 2022-04-03 14:45:00 Aluminum Polisher Visit 2, Adc Lab ReddyOdilia [facility] 1.2.840.114 350.1.13.10 4.2.7.2.686 [id number] [facility] 2022-04-03 13:30:00 2022-04-03 14:24:45 Outpatient R ODILIA BLAKELY OGECHUKWU [facility] [id number] [facility] 2022-04-03 13:30:00 2022-04-03 14:24:45 Office Visit Odilia Blakely [facility] 1.2.840.114 350.1.13.10 4.2.7.2.686 [id number] [facility] 2022-04-02 00:00:00 2022-04-02 00:00:00 Telephone Arpita Ramos [facility] 1.20.114 350.1.13.10 4.2.7.2.686 [id number] [facility] 2022-04-02 00:00:00 2022-04-02 00:00:00 Telephone Dayanna Goldstein [facility] 1.2840.114 350.1.13.10 4.2.7.2.686 [id number] [facility] 2022-03-30 00:00:00 2022-03-30 00:00:00 Telephone Dayanna Goldstein [facility] 1.2840.114 350.1.13.10 4.2.7.2.686 [id number] [facility] 2022-03-27 16:20:00 2022-03-27 16:20:00 Outpatient R DAYANNA GOLDSTEIN [facility] [id number] [facility] 2022-03-26 13:17:15 2022-03-26 23:59:00 Hospital Encounter Eliana Baker [facility] 1.84.114 350.1.13.10 4.2.7.2.686 [id number] [facility] 2022-03-26 13:16:48 2022-03-26 13:16:48 Outpatient R ELIANA BAKER [facility] [id number] [facility] 2022-03-26 13:16:48 2022-03-26 13:16:48 Hospital Encounter Eliana Baker [facility] 1.0.114 350.1.13.10 4.2.7.2.686 [id number] [facility] 2022-03-22 00:00:00 2022-03-22 00:00:00 Orders Only Doctor Unassigned, [place] [facility] 1.840.114 350.1.13.10 4.2.7.2.686 [id number] [facility] 2022-03-14 00:00:00 2022-03-14 00:00:00 [facility]..[facility].114 350.1.13.10 4.2.7.2.686 [id number] [facility] 2022-03-12 13:40:00 2022-03-12 13:40:00 [id number] 2022-03-12 13:40:00 2022-03-12 13:40:00 [facility] [id number] [facility] 2022-03-09 00:00:00 2022-03-09 00:00:00 [facility]..840.114 350.1.13.10 4.2.7.2.686 [id number] [facility] 2022-03-06 13:45:00 2022-03-06 13:45:00 Outpatient JOSE MILLER [facility] [id number] [facility] 2022-02-27 15:30:00 2022-02-27 15:40:24 Outpatient JOSE LUIS CONTRERAS [facility] [id number] [facility] 2022-02-27 15:30:00 2022-02-27 15:40:24 Imm/Inj Visit Vaccine, Adc Family Medicine Jose Luis Price [facility] 1..840.114 350.1.13.10 4.2.7.2.686 [id number] [facility] 2022-02-27 14:00:00 2022-02-27 15:03:13 Outpatient R JOSE MOORE [facility] [id number] [facility] 2022-02-27 14:00:00 2022-02-27 15:03:13 Outpatient R JOSE MOORE [facility] [id number] [facility] 2022-02-27 14:00:00 2022-02-27 15:03:13 Ancillary Visit Kristina Noble Craig [facility] 1.2.840.114 350.1.13.10 4.2.7.2.686 [id number] [facility] 2022-02-23 00:00:00 2022-02-23 00:00:00 [facility] 1.2.840.114 350.1.13.10 4.2.7.2.686 [id number] [facility] 2022-02-20 13:00:00 2022-02-20 13:49:24 Outpatient R ELIANA BAKER [facility] [id number] [facility] 2022-02-20 13:00:00 2022-02-20 13:49:24 Office Visit Olivia [facility] 1.2.840.114 350.1.13.10 4.2.7.2.686 [id number] [facility] 2022-02-20 13:00:00 2022-02-20 13:49:24 Outpatient R ELIANA BAKER [facility] [id number] [facility] 2022-02-19 09:00:00 2022-02-19 09:00:00 Outpatient R HIMANSHU ADRIAN [facility] [id number] [facility] 2022-01-24 00:00:00 2022-01-24 00:00:00 Telephone Dayanna Goldstein [facility] 1.2.840.114 350.1.13.10 4.2.7.2.686 [id number] [facility] 2022-01-23 00:00:00 2022-01-23 00:00:00 Telephone Only, Ang Db Test [facility] 1.2.840.114 350.1.13.10 4.2.7.2.686 [id number] [facility] 2022-01-19 16:20:00 2022-01-19 16:27:54 Outpatient R DAYANNA GOLDSTEIN [facility] [id number] [facility] 2022-01-19 16:20:00 2022-01-19 16:27:54 Office Visit Dayanna Goldstein [facility] 1.2.840.114 350.1.13.10 4.2.7.2.686 [id number] [facility] 2022-01-19 16:20:00 2022-01-19 16:27:54 Outpatient R GOLDSTEINKATDAYANNA [facility] [id number] [facility] 2022-01-19 10:45:00 2022-01-19 11:00:00 Office Visit Doug [facility] 1.2.840.114 350.1.13.10 4.2.7.2.686 [id number] [facility] 2022-01-19 10:45:00 2022-01-19 10:45:00 Outpatient R DOUG ANDERSON [facility] [id number] [facility] 2022-01-19 09:30:00 2022-01-19 09:45:00 Laboratory Only Only, Ang Db Test Stephanie Kat [facility] 1.2.840.114 350.1.13.10 4.2.7.2.686 [id number] [facility] 2022-01-19 10:45:00 2022-01-19 09:38:57 Outpatient DOUG RYAN [facility] [id number] [facility] 2022-01-19 10:45:00 2022-01-19 09:38:57 Outpatient DOUG RYAN [facility] [id number] [facility] 2022-01-02 13:00:00 2022-01-02 13:00:00 Outpatient JOSE MILLER [facility] [id number] [facility] 2022-01-02 13:00:00 2022-01-02 13:00:00 Outpatient JOSE MILLER [facility] [id number] [facility] 2021-12-22 13:45:00 2021-12-22 14:58:48 Outpatient JOSE MILLER [facility] [id number] [facility] 2021-12-22 13:45:00 2021-12-22 14:58:48 Ancillary Visit Diana López Craig L [facility] 1.2.840.114 350.1.13.10 4.2.7.2.686 [id number] [facility] 2021-12-22 13:45:00 2021-12-22 14:58:48 Outpatient JOSE MILLER [facility] [id number] [facility] 2021-12-22 13:45:00 2021-12-22 14:58:48 Outpatient JOSE MILLER [facility] [id number] [facility] 2021-12-20 13:00:00 2021-12-20 13:00:00 Outpatient DOUG RYAN [facility] [id number] [facility] 2021-12-20 13:00:00 2021-12-20 13:00:00 Outpatient DOUG RYAN [facility] [id number] [facility] 2021-12-20 13:00:00 2021-12-20 13:00:00 Outpatient DOUG RYAN [facility] [id number] [facility] 2021-12-14 13:00:00 2021-12-14 13:45:00 Ancillary Visit Diana López [facility] 1.2.840.114 350.1.13.10 4.2.7.2.686 [id number] [facility] 2021-12-12 13:00:00 2021-12-12 13:45:00 Ancillary Visit Vonnie Cooney Craig L [facility] 1.2.840.114 350.1.13.10 4.2.7.2.686 [id number] [facility] 2021-12-08 16:00:00 2021-12-08 16:45:00 Ancillary Visit Diana López Craig L [facility] 1.2.840.114 350.1.13.10 4.2.7.2.686 [id number] [facility] 2021-12-01 11:00:00 2021-12-01 11:45:00 Ancillary Visit Diana López Craig L [facility] 1.2.840.114 350.1.13.10 4.2.7.2.686 [id number] [facility] 2021-11-29 00:00:00 2021-11-29 00:00:00 Saskia Bazzi [facility] 1.2.840.114 350.1.13.10 4.2.7.2.686 [id number] [facility] 2021-11-28 11:00:00 2021-11-28 13:29:41 Outpatient Ghazal JOSE MOORE [facility] [id number] [facility] 2021-11-28 11:00:00 2021-11-28 13:29:41 Outpatient R JOSE MOORE [facility] [id number] [facility] 2021-11-28 11:00:00 2021-11-28 13:29:41 Outpatient R JOSE MOORE [facility] [id number] [facility] 2021-11-28 11:00:00 2021-11-28 11:45:00 Ancillary Visit Vonnie Cooney Craig [facility] 1.2.840.114 350.1.13.10 4.2.7.2.686 [id number] [facility] 2021-11-28 11:00:00 2021-11-28 11:00:00 Outpatient JOSE MILLER [facility] [id number] [facility] 2021-11-21 12:50:00 2021-11-21 23:59:00 Outpatient JOSE MILLER [facility] [id number] [facility] 2021-11-21 13:00:00 2021-11-21 13:32:29 Outpatient DOUG RYAN [facility] [id number] [facility] 2021-11-21 13:00:00 2021-11-21 13:15:00 Office Visit Doug [facility] 1.2.840.114 350.1.13.10 4.2.7.2.686 [id number] [facility] 2021-11-21 13:00:00 2021-11-21 13:00:00 Outpatient DOUG RYAN [facility] [id number] [facility] 2021-11-20 15:30:00 2021-11-20 15:30:00 Outpatient DOUG RYAN [facility] [id number] [facility] 2021-11-20 15:30:00 2021-11-20 15:30:00 Outpatient DOUG RYAN [facility] [id number] [facility] 2021-11-20 13:45:00 2021-11-20 14:30:00 Ancillary Visit Zeke López Craig L [facility] 1.2.840.114 350.1.13.10 4.2.7.2.686 [id number] [facility] 2021-11-20 00:00:00 2021-11-20 00:00:00 Telephone Doug Anderson [facility] 1.2.840.114 350.1.13.10 4.2.7.2.686 [id number] [facility] 2021-11-20 00:00:00 2021-11-20 00:00:00 Telephone Dayanna Goldstein [facility] 1.2.840.114 350.1.13.10 4.2.7.2.686 [id number] [facility] 2021-11-17 11:00:00 2021-11-17 11:45:00 Ancillary Visit Diana López Craig L [facility] 1.2.840.114 350.1.13.10 4.2.7.2.686 [id number] [facility] 2021-11-13 14:15:00 2021-11-13 14:15:00 Outpatient DOUG RYAN [facility] [id number] [facility] 2021-11-13 14:15:00 2021-11-13 14:15:00 Outpatient Ghazal DOUG ANDERSON [facility] [id number] [facility] 2021-11-07 16:00:00 2021-11-08 16:08:33 Outpatient R JOSE MOORE [facility] [id number] [facility] 2021-11-07 16:00:00 2021-11-07 16:45:00 Ancillary Visit Amalia García Craig L [facility] 1..840.114 350.1.13.10 4.2.7.2.686 [id number] [facility] 2021-11-07 15:40:00 2021-11-07 16:26:40 Outpatient DAYANNA DAVIS [facility] [id number] [facility] 2021-11-07 15:40:00 2021-11-07 16:26:40 Outpatient R DAYANNA GOLDSTEIN [facility] [id number] [facility] 2021-11-07 15:40:00 2021-11-07 16:26:40 Office Visit Dayanna Goldstein [facility] 1..840.114 350.1.13.10 4.2.7.2.686 [id number] [facility] 2021-11-07 15:40:00 2021-11-07 15:40:00 Outpatient R DAYANNA GOLDSTEIN [facility] [id number] [facility] 2021-10-30 07:15:00 2021-10-31 16:24:00 Outpatient R JOSE MOORE [facility] [id number] [facility] 2021-10-30 07:15:00 2021-10-31 16:24:00 Hospital Encounter Jose Moore [facility] 1..840.114 350.1.13.10 4.2.7.2.686 [id number] [facility] 2021-10-30 07:15:00 2021-10-31 16:24:00 Outpatient JOSE MILLER [facility] SOR [id number] [facility] 2021-10-30 09:20:00 2021-10-30 11:44:00 Surgery Jose Moore [facility] [place] 1..114 350.1.13.10 4.2.7.2.686 [id number] [facility] 2021-10-30 09:18:00 2021-10-30 11:23:00 Anesthesia Event Josiah Fontenot Fernando [facility] [place] 1.114 350.1.13.10 4.2.7.2.686 [id number] [facility] 2021-10-30 00:00:00 2021-10-30 00:00:00 Orders Only Doctor Unassigned, [place] [facility] 1.114 350.1.13.10 4.2.7.2.686 [id number] [facility] 2021-10-27 08:37:34 2021-10-27 23:59:00 Outpatient JOSE MILLER [facility] [id number] [facility] 2021-10-27 11:00:00 2021-10-27 11:15:00 Aluminum Polisher Visit Pob, Adc Lab Main Jose Moore [facility] N[facility]ILD[facility] 1.114 350.1.13.10 4.2.7.2.686 [id number] [facility] 2021-10-27 10:15:00 2021-10-27 10:30:00 Office Visit Doug Anderson [facility] 1.114 350.1.13.10 4.2.7.2.686 [id number] [facility] 2021-10-27 10:15:00 2021-10-27 10:15:00 Outpatient DOUG RYAN [facility] [id number] [facility] 2021-10-27 08:36:59 2021-10-27 08:36:59 Hospital Encounter Jose Moore [facility] 1.2.840.114 350.1.13.10 4.2.7.2.686 [id number] [facility] 2021-10-24 00:00:00 2021-10-24 00:00:00 Telephone Jose Moore [facility] 1..840.114 350.1.13.10 4.2.7.2.686 [id number] [facility] 2021-10-23 00:00:00 2021-10-23 00:00:00 Telephone Jose Moore [facility] 1..840.114 350.1.13.10 4.2.7.2.686 [id number] [facility] 2021-10-10 11:20:00 2021-10-10 11:52:47 Outpatient R STEPHANIE KAT [facility] [id number] [facility] 2021-10-10 11:20:00 2021-10-10 11:52:47 [facility] 1..840.114 350.1.13.10 4.2.7.2.686 [id number] [facility] 2021-10-09 00:00:00 2021-10-09 00:00:00 Telephone Jose Moore [facility] 1.2.840.114 350.1.13.10 4.2.7.2.686 [id number] [facility] 2021-10-06 00:00:00 2021-10-06 00:00:00 Telephone Dayanna Goldstein [facility] 1..840.114 350.1.13.10 4.2.7.2.686 [id number] [facility] 2021-10-05 00:00:00 2021-10-05 00:00:00 Telephone Jose Moore [facility] 1..840.114 350.1.13.10 4.2.7.2.686 [id number] [facility] 2021-10-04 14:30:00 2021-10-04 14:30:00 Outpatient R ODILIA BLAKELY OGECHROMEOU [facility] [id number] [facility] 2021-10-04 14:30:00 2021-10-04 14:30:00 Outpatient R ODILIA BLAKELY OGECHWU [facility] [id number] [facility] 2021-10-04 14:30:00 2021-10-04 14:30:00 Outpatient R ODILIA BLAKELY OGECHROMEOU [facility] [id number] [facility] 2021-10-04 14:30:00 2021-10-04 14:30:00 Outpatient R ODILIA BLAKELY OGECHUKWU [facility] [id number] [facility] 2021-10-04 10:40:00 2021-10-04 11:00:00 Office Visit Elizabeth Lipscomb [facility] 1.2.840.114 350.1.13.10 4.2.7.2.686 [id number] [facility] 2021-10-04 00:00:00 2021-10-04 00:00:00 Prep For Surgery Jose Moore [facility] 1..114 350.1.13.10 4.2.7.2.686 [id number] [facility] 2021-10-03 00:00:00 2021-10-03 00:00:00 Refill [facility] 1..114 350.1.13.10 4.2.7.2.686 [id number] [facility] 2021-10-03 00:00:00 2021-10-03 00:00:00 Telephone Leigh Austin [facility] 1..114 350.1.13.10 4.2.7.2.686 [id number] [facility] 2021-09-28 00:00:00 2021-09-28 00:00:00 Telephone Doug Andesron [facility] 1.114 350.1.13.10 4.2.7.2.686 [id number] [facility] 2021-09-26 00:00:00 2021-09-26 00:00:00 Patient Secure Msg Doctor Unassigned, [place] [facility] 1..114 350.1.13.10 4.2.7.2.686 [id number] [facility] 2021-09-25 14:11:00 2021-09-25 15:01:00 Surgery Ariane Hernández [facility] 1..114 350.1.13.10 4.2.7.2.686 [id number] [facility] 2021-09-25 11:37:00 2021-09-25 14:46:00 Outpatient R ARIANE HERNÁNDEZ [facility] TITI [id number] [facility] 2021-09-25 11:37:00 2021-09-25 14:46:00 Hospital Encounter Ariane Hernández [facility] 1.2840.114 350.1.13.10 4.2.7.2.686 [id number] [facility] 2021-09-25 00:00:00 2021-09-25 00:00:00 Orders Only Doctor Unassigned, [place] [facility] 1.2840.114 350.1.13.10 4.2.7.2.686 [id number] [facility] 2021-09-19 00:00:00 2021-09-19 00:00:00 Telephone Ariane Hernández [facility] PROFESS[facility] NAL BUILD[facility] 1.2840.114 350.1.13.10 4.2.7.2.686 [id number] [facility] 2021-09-18 15:00:00 2021-09-18 15:15:00 Office Visit [place] [facility] 1.2840.114 350.1.13.10 4.2.7.2.686 [id number] [facility] 2021-09-18 15:00:00 2021-09-18 15:15:00 Office Visit [place] [facility]ILD[facility] 1.2840.114 350.1.13.10 4.2.7.2.686 [id number] [facility] 2021-09-18 15:00:00 2021-09-18 15:00:00 Outpatient R ANDERSONDOUG [facility] [id number] [facility] 2021-09-18 15:00:00 2021-09-18 15:00:00 Outpatient R ANDERSONDOUG [facility] [id number] [facility] 2021-09-18 13:20:00 2021-09-18 14:24:11 [id number] 2021-09-18 13:20:00 2021-09-18 14:24:11 Outpatient R [facility] [id number] [facility] 2021-09-18 13:20:00 2021-09-18 14:24:11 Outpatient R [facility] [id number] [facility] 2021-09-18 13:20:00 2021-09-18 14:24:11 Outpatient R [facility] [id number] [facility] 2021-09-18 13:20:00 2021-09-18 13:40:00 Office Visit [place] [facility] 1.2.840.114 350.1.13.10 4.2.7.2.686 [id number] [facility] 2021-09-18 13:20:00 2021-09-18 13:40:00 [facility] 1.2.840.114 350.1.13.10 4.2.7.2.686 [id number] [facility] 2021-09-18 13:20:00 2021-09-18 13:20:00 Outpatient [facility] [id number] [facility] 2021-09-18 13:20:00 2021-09-18 13:20:00 Outpatient R [facility] [id number] [facility] 2021-09-18 00:00:00 2021-09-18 00:00:00 Orders Only Doctor Unassigned, [place] [facility] 1.2.840.114 350.1.13.10 4.2.7.2.686 [id number] [facility] 2021-09-14 00:00:00 2021-09-14 00:00:00 Prep For Surgery Ariane Hernández [facility] 1.2.840.114 350.1.13.10 4.2.7.2.686 [id number] [facility] 2021-09-13 15:00:00 2021-09-13 15:15:00 Telemedici ne Visit Kassie Lipscombl Amber [facility] 1..840.114 350.1.13.10 4.2.7.2.686 [id number] [facility] 2021-09-13 15:00:00 2021-09-13 15:00:00 Outpatient R ATANASOV, STRAHIL ATANASOV, STRAHIL [facility] [id number] [facility] 2021-09-13 15:00:00 2021-09-13 15:00:00 Outpatient R ATANASOV, STRAHIL ATANASOV, STRAHIL [facility] [id number] [facility] 2021-09-13 15:00:00 2021-09-13 15:00:00 Outpatient R ATANASOV, STRAHIL ATANASOV, STRAHIL [facility] [id number] [facility] 2021-09-13 15:00:00 2021-09-13 15:00:00 Outpatient R ATANASOV, STRAHIL ATANASOV, STRAHIL [facility] [id number] [facility] 2021-09-13 00:00:00 2021-09-13 00:00:00 Telephone Addy Lipscombhil [facility] 1.2.840.114 350.1.13.10 4.2.7.2.686 [id number] [facility] 2021-09-12 14:15:00 2021-09-12 15:44:30 Office Visit Ariane Hernández [facility] 1..840.114 350.1.13.10 4.2.7.2.686 [id number] [facility] 2021-09-12 14:15:00 2021-09-12 15:44:30 Outpatient R HALIE ARIANE [facility] [id number] [facility] 2021-09-12 14:15:00 2021-09-12 14:15:00 Outpatient R LALI HERNÁNDEZEL [facility] [id number] [facility] 2021-09-12 14:15:00 2021-09-12 14:15:00 Outpatient R ARIANE HERNÁNDEZ [facility] [id number] [facility] 2021-09-12 00:00:00 2021-09-12 00:00:00 Orders Only Doctor Unassigned, [place] [facility] 1.84.114 350.1.13.10 4.2.7.2.686 [id number] [facility] 2021-09-11 08:40:00 2021-09-11 09:25:22 Outpatient R DAYANNA GOLDSTEIN [facility] [id number] [facility] 2021-09-11 08:40:00 2021-09-11 09:25:22 Outpatient R DAYANNA GOLDSTEIN [facility] [id number] [facility] 2021-09-11 08:40:00 2021-09-11 09:25:22 Office Visit Dayanna Goldstein [facility] 1..840.114 350.1.13.10 4.2.7.2.686 [id number] [facility] 2021-09-08 00:00:00 2021-09-08 00:00:00 Orders Only Doctor Unassigned, [place] [facility] 1.2840.114 350.1.13.10 4.2.7.2.686 [id number] [id number] [facility] 2021-09-05 00:00:00 2021-09-05 00:00:00 Telephone Ariane Hernández [facility] 1.840.114 350.1.13.10 4.2.7.2.686 [id number] [facility] 2021-09-05 00:00:00 2021-09-05 00:00:00 Patient Secure Msg Doctor Unassigned, [place] [facility] 1.0.114 350.1.13.10 4.2.7.2.686 [id number] [facility] 2021-09-05 00:00:00 2021-09-05 00:00:00 Patient Secure Msg Doctor Unassigned, [place] [facility] 1.20.114 350.1.13.10 4.2.7.2.686 [id number] [facility] 2021-09-04 00:00:00 2021-09-04 00:00:00 Telephone Doug Anderson [facility] 1.0.114 350.1.13.10 4.2.7.2.686 [id number] [facility] 2021-08-30 14:15:00 2021-08-30 14:30:00 Office Visit Doug Anderson Craig L [facility] 1.0.114 350.1.13.10 4.2.7.2.686 [id number] [facility] 2021-08-30 14:15:00 2021-08-30 14:15:00 Outpatient R JOSE MOORE [facility] [id number] [facility] 2021-08-30 14:15:00 2021-08-30 14:15:00 Outpatient R JOSE MOORE [facility] [id number] [facility] 2021-08-28 14:30:00 2021-08-28 14:30:00 Office Visit Jose Moore Nader [facility] 1..840.114 350.1.13.10 4.2.7.2.686 [id number] [facility] 2021-08-28 14:30:00 2021-08-28 13:51:32 Outpatient R JOSE MOORE [facility] [id number] [facility] 2021-08-24 00:00:00 2021-08-24 00:00:00 Refill Dayanna Goldstein [facility] 1.2.840.114 350.1.13.10 4.2.7.2.686 [id number] 231 [id number] [facility] 2021-08-24 00:00:00 2021-08-24 00:00:00 Telephone Dayanna Goldstein [facility] 1..840.114 350.1.13.10 4.2.7.2.686 [id number] [facility] 2021-08-22 15:20:00 2021-08-22 15:52:28 Outpatient R LEIGH AUSTIN [facility] [id number] [facility] 2021-08-22 15:20:00 2021-08-22 15:52:28 Office Visit Leigh Austin [facility] 1..840.114 350.1.13.10 4.2.7.2.686 [id number] [facility] 2021-08-22 00:00:00 2021-08-22 00:00:00 Telephone Triston [facility] 1.2.840.114 350.1.13.10 4.2.7.2.686 [id number] 231 [id number] [facility] 2021-08-11 15:40:00 2021-08-11 17:11:19 Outpatient R TRISTON DAYANNA [facility] [id number] [facility] 2021-08-11 15:40:00 2021-08-11 17:11:19 Office Visit Dayanna Goldstein Solis [facility] 1..840.114 350.1.13.10 4.2.7.2.686 [id number] [facility] 2021-08-11 15:40:00 2021-08-11 15:40:00 Outpatient R TRISTON DAYANNA [facility] [id number] [facility] 2021-08-10 00:00:00 2021-08-10 00:00:00 Orders Only Doctor Unassigned, [place] [facility] 1.840.114 350.1.13.10 4.2.7.2.686 [id number] [id number] [facility] 2021-07-31 00:00:00 2021-07-31 00:00:00 Refill Dayanna Goldstein [facility] 1..840.114 350.1.13.10 4.2.7.2.686 [id number] 231 [id number] [facility] 2021-07-31 00:00:00 2021-07-31 00:00:00 Refill Dayanna Goldstein [facility] 1.2.840.114 350.1.13.10 4.2.7.2.686 [id number] 044 [id number] [facility] 2021-07-26 09:56:00 2021-07-26 13:25:00 Outpatient R AYUSH CAGE [facility] [id number] [facility] 2021-07-26 09:56:00 2021-07-26 13:25:00 Hospital Encounter Ayush Cage [facility] [place] 1.2.840.114 350.1.13.10 4.2.7.2.686 [id number] [facility] 2021-07-26 10:56:00 2021-07-26 11:37:00 Surgery Ayush Cage [facility] [place] 1.2.840.114 350.1.13.10 4.2.7.2.686 [id number] [facility] 2021-07-26 00:00:00 2021-07-26 00:00:00 Orders Only Doctor Unassigned, [place] [facility] 1.2.840.114 350.1.13.10 4.2.7.2.686 [id number] [id number] [facility] 2021-07-25 00:00:00 2021-07-25 00:00:00 Telephone Leigh Austin [facility] [place] COUNT INCLUDES THE [facility] 1.2.840.114 350.1.13.10 4.2.7.2.686 [id number] 059 [id number] [facility] 2021-07-25 00:00:00 2021-07-25 00:00:00 Orders Only Doctor Unassigned, [place] [facility] 1.2.840.114 350.1.13.10 4.2.7.2.686 [id number] [id number] [facility] 2021-07-24 15:00:00 2021-07-24 15:15:00 Laboratory Only Only, Adc Test Ayush Cage [facility] 1..840.114 350.1.13.10 4.2.7.2.686 [id number] [facility] 2021-07-24 15:00:00 2021-07-24 15:00:00 Outpatient AYUSH FRANKS [facility] [id number] [facility] 2021-07-24 15:00:00 2021-07-24 15:00:00 Outpatient AYUSH FRANKS [facility] [id number] [facility] 2021-07-18 16:00:00 2021-07-18 16:15:00 Aluminum Polisher Visit Pob, Adc Lab Main [facility] 1..840.114 350.1.13.10 4.2.7.2.686 [id number] [facility] 2021-07-18 16:00:00 2021-07-18 16:00:00 Outpatient AYUSH FRANKS [facility] [id number] [facility] 2021-07-18 16:00:00 2021-07-18 16:00:00 Outpatient AYUSH FRANKS [facility] [id number] [facility] 2021-07-18 16:00:00 2021-07-18 16:00:00 Outpatient AYUSH FRANKS [facility] [id number] [facility] 2021-07-18 16:00:00 2021-07-18 16:00:00 Outpatient AYUSH FRANKS [facility] [id number] [facility] 2021-07-18 00:00:00 2021-07-18 00:00:00 Orders Only Doctor Unassigned, [place] [facility] 1..840.114 350.1.13.10 4.2.7.2.686 [id number] [id number] [facility] 2021-07-17 00:00:00 2021-07-17 00:00:00 Orders Only Doctor Unassigned, [place] [facility] 1.2.840.114 350.1.13.10 4.2.7.2.686 [id number] [id number] [facility] 2021-07-07 00:00:00 2021-07-07 00:00:00 Telephone Dayanna Goldstein [facility] 1.2.840.114 350.1.13.10 4.2.7.2.686 [id number] [facility] 2021-07-06 00:00:00 2021-07-06 00:00:00 Telephone Dayanna Goldstein [facility] 1.2.840.114 350.1.13.10 4.2.7.2.686 [id number] 231 [id number] [facility] 2021-07-06 00:00:00 2021-07-06 00:00:00 Telephone Dayanna Goldstein [facility] 1.2.840.114 350.1.13.10 4.2.7.2.686 [id number] 231 [id number] [facility] 2021-07-04 00:00:00 2021-07-04 00:00:00 Orders Only Doctor Unassigned, [place] [facility] 1.2840.114 350.1.13.10 4.2.7.2.686 [id number] [id number] [facility] 2021-07-04 00:00:00 2021-07-04 00:00:00 Telephone Jose Moore [facility] 1.2.840.114 350.1.13.10 4.2.7.2.686 [id number] 198 [id number] [facility] 2021-07-04 00:00:00 2021-07-04 00:00:00 Telephone Jose Moore [facility] 1.2840.114 350.1.13.10 4.2.7.2.686 [id number] 198 [id number] [facility] 2021-06-30 00:00:00 2021-06-30 00:00:00 Telephone Jose Moore [facility] 1.2840.114 350.1.13.10 4.2.7.2.686 [id number] [facility] 2021-06-30 00:00:00 2021-06-30 00:00:00 Telephone Jose Moore [facility] 1.2840.114 350.1.13.10 4.2.7.2.686 [id number] [facility] 2021-06-29 00:00:00 2021-06-29 00:00:00 Telephone Jose Moore [facility] 1.2840.114 350.1.13.10 4.2.7.2.686 [id number] [facility] 2021-06-28 00:00:00 2021-06-28 00:00:00 Telephone Jose Moore [facility] 1.2840.114 350.1.13.10 4.2.7.2.686 [id number] [facility] 2021-06-28 00:00:00 2021-06-28 00:00:00 Orders Only Doctor Unassigned, [place] [facility] 1.2840.114 350.1.13.10 4.2.7.2.686 [id number] [id number] [facility] 2021-06-27 00:00:00 2021-06-27 00:00:00 Telephone [facility] 1.2.840.114 350.1.13.10 4.2.7.2.686 [id number] [facility] 2021-06-26 00:00:00 2021-06-26 00:00:00 Telephone Dayanna Goldstein [facility] 1.2.840.114 350.1.13.10 4.2.7.2.686 [id number] 231 [id number] [facility] 2021-06-22 00:00:00 2021-06-22 00:00:00 Telephone Dayanna Goldstein [facility] 1.2.840.114 350.1.13.10 4.2.7.2.686 [id number] 044 [id number] [facility] 2021-06-21 00:00:00 2021-06-21 00:00:00 Telephone Dayanna Goldstein [facility] 1.2.840.114 350.1.13.10 4.2.7.2.686 [id number] [facility] 2021-06-20 00:00:00 2021-06-20 00:00:00 Telephone Leigh Austin [facility] 1.2.840.114 350.1.13.10 4.2.7.2.686 [id number] 059 [id number] [facility] 2021-06-20 00:00:00 2021-06-20 00:00:00 Telephone Dayanna Goldstein [facility] 1.2.840.114 350.1.13.10 4.2.7.2.686 [id number] 044 [id number] [facility] 2021-06-12 00:00:00 2021-06-12 00:00:00 Telephone Jose Moore [facility] 1.2.840.114 350.1.13.10 4.2.7.2.686 [id number] 198 [id number] [facility] 2021-06-12 00:00:00 2021-06-12 00:00:00 Telephone Jose Moore [facility] 1.2.840.114 350.1.13.10 4.2.7.2.686 [id number] [facility] 2021-06-07 00:00:00 2021-06-07 00:00:00 Refill [facility] 1.2.840.114 350.1.13.10 4.2.7.2.686 [id number] 059 [id number] [facility] 2021-06-04 00:00:00 2021-06-04 00:00:00 Telephone Jose Moore [facility] 1.2.840.114 350.1.13.10 4.2.7.2.686 [id number] 198 [id number] [facility] 2021-05-31 00:00:00 2021-05-31 00:00:00 Telephone Jose Moore [facility] 1.2.840.114 350.1.13.10 4.2.7.2.686 [id number] [facility] 2021-05-29 13:40:00 2021-05-29 13:40:00 Outpatient DAYANNA DAVIS [facility] [id number] [facility] 2021-05-29 13:40:00 2021-05-29 13:40:00 Outpatient DAYANNA DAVIS [facility] [id number] [facility] 2021-05-29 13:40:00 2021-05-29 13:40:00 Outpatient R DAYANNA GOLDSTEIN [facility] [id number] [facility] 2021-05-29 13:40:00 2021-05-29 13:40:00 Outpatient R DAYANNA GOLDSTEIN [facility] [id number] [facility] 2021-05-12 00:00:00 2021-05-12 00:00:00 Saskia Bazzi [facility] 1.2.840.114 350.1.13.10 4.2.7.2.686 [id number] [facility] 2021-05-08 13:40:00 2021-05-08 13:40:00 Outpatient JOSE LUIS CONTRERAS [facility] [id number] [facility] 2021-05-08 13:40:00 2021-05-08 13:39:25 Outpatient JOSE LUIS CONTRERAS [facility] [id number] [facility] 2021-05-08 13:40:00 2021-05-08 13:39:25 Outpatient JOSE LUIS CONTRERAS [facility] [id number] [facility] 2021-05-08 13:39:10 2021-05-08 13:39:25 Imm/Inj Visit Nurse, Ashlee Pob Immunizatio Jose Luis Galvez [facility] 1.2.840.114 350.1.13.10 4.2.7.2.686 [id number] [facility] 2021-05-04 00:00:00 2021-05-04 00:00:00 Telephone Dayanna Goldstein [facility] 1.2.840.114 350.1.13.10 4.2.7.2.686 [id number] 044 [id number] [facility] 2021-05-03 00:00:00 2021-05-03 00:00:00 Telephone Dayanna Goldstein [facility] 1.2840.114 350.1.13.10 4.2.7.2.686 [id number] 044 [id number] [facility] 2021-05-03 00:00:00 2021-05-03 00:00:00 [facility] 1.2840.114 350.1.13.10 4.2.7.2.686 [id number] 059 [id number] [facility] 2021-02-13 10:54:04 2021-02-13 11:35:47 [facility].114 350.1.13.10 4.2.7.2.686 [id number] 059 [id number] [facility] 2021-02-13 11:20:00 2021-02-13 11:20:00 Out[facility] [id number] [facility] 2021-02-13 00:00:00 2021-02-13 00:00:00 Orders Only Doctor Unassigned, [place] [facility] 1.2840.114 350.1.13.10 4.2.7.2.686 [id number] [id number] [facility] 2021-01-18 00:00:00 2021-01-18 00:00:00 Telephone Doug Anderson [facility] 1.2840.114 350.1.13.10 4.2.7.2.686 [id number] 198 [id number] [facility] 2021-01-16 12:39:51 2021-01-16 15:47:36 Office Visit Dayanna Goldstein [facility] 1.2840.114 350.1.13.10 4.2.7.2.686 [id number] [facility] 2021-01-16 13:40:00 2021-01-16 13:40:00 Outpatient R DAYANNA GOLDSTEIN [facility] [id number] [facility] 2021-01-12 14:00:00 2021-01-12 14:00:00 Outpatient R MONROY KALPESH [facility] [id number] [facility] 2021-01-10 00:00:00 2021-01-10 00:00:00 Telephone Dayanna Goldstein [facility] 1.2.840.114 350.1.13.10 4.2.7.2.686 [id number] 044 [id number] [facility] 2021-01-08 00:00:00 2021-01-08 00:00:00 Telephone Leigh Austin [facility] 1.2.840.114 350.1.13.10 4.2.7.2.686 [id number] 059 [id number] [facility] 2020-12-13 00:00:00 2020-12-13 00:00:00 Telephone SalvadorjocelynAidanNati [facility] 1.2.840.114 350.1.13.10 4.2.7.2.686 [id number] [facility] 2020-12-07 16:30:00 2020-12-07 16:30:00 Outpatient MAURY RAMOS [facility] [id number] [facility] 2020-12-07 12:40:10 2020-12-07 12:55:10 Aluminum Polisher Visit Pob, Adc Lab Main Saskia Perez [facility] 1.2.840.114 350.1.13.10 4.2.7.2.686 [id number] [facility] 2020-12-07 07:53:09 2020-12-07 08:23:09 Telemedici ne Visit [facility] 1.2.840.114 350.1.13.10 4.2.7.2.686 [id number] 044 [id number] [facility] 2020-12-06 11:19:11 2020-12-06 11:59:11 Ancillary Visit Nati Nelson Craig L [facility] 1.2.840.114 350.1.13.10 4.2.7.2.686 [id number] [facility] 2020-12-06 00:00:00 2020-12-06 00:00:00 Telephone Dayanna Goldstein [facility] 1.2.840.114 350.1.13.10 4.2.7.2.686 [id number] 044 [id number] [facility] 2020-12-01 07:57:36 2020-12-01 14:25:27 Telemedici ne Visit Saskia Perez [facility] 1.2.840.114 350.1.13.10 4.2.7.2.686 [id number] 044 [id number] [facility] 2020-12-01 09:00:00 2020-12-01 09:00:00 Outpatient R SASKIA PEREZ [facility] [id number] [facility] 2020-12-01 00:00:00 2020-12-01 00:00:00 Telephone Dayanna Goldstein [facility] 1.2.840.114 350.1.13.10 4.2.7.2.686 [id number] 044 [id number] [facility] 2020-11-30 13:02:16 2020-11-30 13:42:16 Ancillary Visit Diana López Craig L [facility] 1.2.840.114 350.1.13.10 4.2.7.2.686 [id number] [facility] 2020-11-30 13:00:00 2020-11-30 13:00:00 Outpatient R JOSE MOORE [facility] [id number] [facility] 2020-11-22 14:50:38 2020-11-22 15:25:44 Ancillary Visit Nati Nelson Craig L [facility] 1.2.840.114 350.1.13.10 4.2.7.2.686 [id number] [facility] 2020-11-16 14:45:47 2020-11-16 15:25:47 Ancillary Visit Diana López Craig L [facility] 1.2.840.114 350.1.13.10 4.2.7.2.686 [id number] 179 [id number] [facility] 2020-11-14 17:15:00 2020-11-14 18:20:00 Emergency Chance Cardoza [facility] 1.2.840.114 350.1.13.10 4.2.7.2.686 [id number] 084 [id number] [facility] 2020-11-14 15:52:28 2020-11-14 16:32:28 Ancillary Visit Zeke López Craig L [facility] 1.2.840.114 350.1.13.10 4.2.7.2.686 [id number] 179 [id number] [facility] 2020-11-14 00:00:00 2020-11-14 00:00:00 Telephone Leigh Austin [facility] 1.2.840.114 350.1.13.10 4.2.7.2.686 [id number] 059 [id number] [facility] 2020-11-10 00:00:00 2020-11-10 00:00:00 Patient Secure Msg Doctor Unassigned, [place] [facility] 1.2.840.114 350.1.13.10 4.2.7.2.686 [id number] [facility] 2020-11-07 16:27:43 2020-11-07 17:07:43 Ancillary Visit Zeke López Craig L [facility] 1.2.840.114 350.1.13.10 4.2.7.2.686 [id number] 179 [id number] [facility] 2020-11-01 13:07:47 2020-11-01 14:33:04 Ancillary Visit Kristina Noble Craig [facility] 1.2.840.114 350.1.13.10 4.2.7.2.686 [id number] [facility] 2020-11-01 13:40:00 2020-11-01 13:40:00 Outpatient R JOSE MOORE [facility] [id number] [facility] 2020-11-01 00:00:00 2020-11-01 00:00:00 Patient Secure Msg Doctor Unassigned, [place] [facility] 1.2840.114 350.1.13.10 4.2.7.2.686 [id number] [facility] 2020-11-01 00:00:00 2020-11-01 00:00:00 Telephone Jose Moore [facility] junaid Serrano 1.2.840.114 350.1.13.10 4.2.7.2.686 [id number] [facility] 2020-10-31 00:00:00 2020-10-31 00:00:00 Orders Only Doctor Unassigned, [place] [facility] 1.2.840.114 350.1.13.10 4.2.7.2.686 [id number] [facility] 2020-10-31 00:00:00 2020-10-31 00:00:00 Telephone [facility] 1.2.840.114 350.1.13.10 4.2.7.2.686 [id number] [facility] 2020-10-27 00:00:00 2020-10-27 00:00:00 Patient Outreach Sheryl Rodriguez [facility] 1.2.840.114 350.1.13.10 4.2.7.2.686 [id number] 044 [id number] [facility] 2020-10-26 13:41:48 2020-10-26 14:11:48 Office Visit Maury Zavaleta [facility] 1.2.840.114 350.1.13.10 4.2.7.2.686 [id number] [id number] [facility] 2020-10-26 14:00:00 2020-10-26 14:00:00 Outpatient Ghazal ZAVALETA MAURY [facility] [id number] [facility] 2020-10-22 09:27:36 2020-10-22 23:59:00 Hospital Encounter Dayanna Goldstein [facility] 1.2.840.114 350.1.13.10 4.2.7.2.686 [id number] [facility] 2020-10-22 00:00:00 2020-10-22 00:00:00 Outpatient DAYANNA DAVIS [facility] [id number] [facility] 2020-10-18 00:00:00 2020-10-18 00:00:00 Pre Visit Outreach Dayanna Goldstein [facility] 1.2.840.114 350.1.13.10 4.2.7.2.686 [id number] [facility] 2020-10-17 11:20:07 2020-10-17 11:35:07 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13.10 4.2.7.2.686 [id number] [facility] 2020-10-17 09:00:00 2020-10-17 09:00:00 Outpatient R TRISTONKATDAYANNA [facility] [id number] [facility] 2020-10-17 00:00:00 2020-10-17 00:00:00 Orders Only Doctor Unassigned, [place] [facility] 1.2.840.114 350.1.13.10 4.2.7.2.686 [id number] [facility] 2020-10-12 14:00:00 2020-10-12 14:00:00 Outpatient R LEIGH AUSTIN [facility] [id number] [facility] 2020-10-03 10:18:00 2020-10-03 14:53:00 Hospital Encounter Ariane Hernández [facility] 1.2840.114 350.1.13.10 4.2.7.2.686 [id number] [facility] 2020-10-03 11:30:00 2020-10-03 12:23:00 Surgery Ariane Hernández [facility] 1.2840.114 350.1.13.10 4.2.7.2.686 [id number] [facility] 2020-10-02 00:00:00 2020-10-02 00:00:00 Telephone Ariane Hern[facility] 1.2.114 350.1.13.10 4.2.7.2.686 [id number] [facility] 2020-09-30 10:45:00 2020-09-30 10:45:00 Outpatient R ARIANE HERNÁNDEZ [facility] [id number] [facility] 2020-09-29 10:41:56 2020-09-29 23:59:00 Hospital Encounter Doug Anderson [facility] 1.2.114 350.1.13.10 4.2.7.2.686 [id number] [facility] 2020-09-29 11:15:00 2020-09-29 11:15:00 Outpatient R DOUG ANDERSON [facility] [id number] [facility] 2020-09-29 09:43:48 2020-09-29 10:26:14 Office Visit Leanne [facility] 1.840.114 350.1.13.10 4.2.7.2.686 [id number] [facility] 2020-09-29 09:21:58 2020-09-29 09:41:58 Laboratory Only Lab, [facility] Dean Manuel VidaCristine Solis [facility] 1.114 350.1.13.10 4.2.7.2.686 [id number] [facility] 2020-09-27 00:00:00 2020-09-27 00:00:00 Telephone Raegan Cat [facility] Building 1..114 350.1.13.10 4.2.7.2.686 [id number] [facility] 2020-09-23 00:00:00 2020-09-23 00:00:00 Prep For Surgery Raegan Cat [facility] [facility] Building 1.114 350.1.13.10 4.2.7.2.686 [id number] [facility] 2020-09-22 13:30:00 2020-09-22 13:30:00 Outpatient R ARIANE HERNÁNDEZ [facility] [id number] [facility] 2020-09-22 12:38:50 2020-09-22 13:08:50 Office Visit Ariane Hernández [facility] 1.114 350.1.13.10 4.2.7.2.686 [id number] [facility] 2020-09-22 10:58:20 2020-09-22 11:18:20 Laboratory Only Lab, [facility] Manuel VidaSyed jimenezlijyoti Ely [facility] Office Building One .114 350.1.13.10 4.2.7.2.686 [id number] 044 [id number] [facility] 2020-09-22 00:00:00 2020-09-22 00:00:00 [facility] 1.2840.114 350.1.13.10 4.2.7.2.686 [id number] 059 [id number] [facility] 2020-09-14 10:06:46 2020-09-14 11:42:36 Office Visit Norman [facility] Building 1.2840.114 350.1.13.10 4.2.7.2.686 [id number] 059 [id number] [facility] 2020-09-14 11:20:00 2020-09-14 11:20:00 Outpatient R [facility] [id number] [facility] 2020-09-13 00:00:00 2020-09-13 00:00:00 Telephone Norman [facility] Building 1.2840.114 350.1.13.10 4.2.7.2.686 [id number] 059 [id number] [facility] 2020-09-11 00:00:00 2020-09-11 00:00:00 Telephone [facility] Office Building One 1.2840.114 350.1.13.10 4.2.7.2.686 [id number] 044 [id number] [facility] 2020-09-01 00:00:00 2020-09-01 00:00:00 Transition of Care Jessica Beltran 1.2840.114 350.1.13.10 4.2.7.2.686 [id number] [facility] 2020-08-29 17:08:00 2020-08-31 17:40:00 Hospital Encounter Robin Beaulieu, Robin Batres [facility] 1.2.840.114 350.1.13.10 4.2.7.2.686 [id number] 081 [id number] [facility] 2020-08-29 17:08:00 2020-08-31 17:40:00 Outpatient ROBIN [facility] [id number] [facility] 2020-08-29 00:00:00 2020-08-29 00:00:00 Orders Only Doctor Unassigned, [place] [facility] 1.2.840.114 350.1.13.10 4.2.7.2.686 [id number] 009 [id number] [facility] 2020-08-18 14:00:00 2020-08-18 14:00:00 Outpatient ARIANE LEROY [facility] [id number] [facility] 2020-08-12 00:00:00 2020-08-12 00:00:00 Kodi Arroyo [facility] Office Building 1.2.840.114 350.1.13.10 4.2.7.2.686 [id number] 059 [id number] [facility] 2020-08-10 00:00:00 2020-08-10 00:00:00 Patient Secure Msg Arroyo [facility] Office Building 1.2.840.114 350.1.13.10 4.2.7.2.686 [id number] 059 [id number] [facility] 2020-08-10 00:00:00 2020-08-10 00:00:00 Patient Secure g Chitra [facility] Office Building 1.2.840.114 350.1.13.10 4.2.7.2.686 [id number] 059 [id number] [facility] 2020-08-10 00:00:00 2020-08-10 00:00:00 Patient Secure g Chitra [facility] Office Building 1.2.840.114 350.1.13.10 4.2.7.2.686 [id number] 059 [id number] [facility] 2020-08-09 11:10:00 2020-08-09 11:10:00 Outpatient GAMALIEL ARTEAGA [facility] [id number] [facility] 2020-07-26 13:20:00 2020-07-26 13:20:00 Outpatient R JOSÉ MIGUEL ARROYO [facility] [id number] [facility] 2020-07-26 12:39:10 2020-07-26 13:17:51 [facility] Building 1.2.840.114 350.1.13.10 4.2.7.2.686 [id number] 059 [id number] [facility] 2020-07-26 00:00:00 2020-07-26 00:00:00 Refill Leigh Austin [facility] Building 1.2.840.114 350.1.13.10 4.2.7.2.686 [id number] 059 [id number] [facility] 2020-07-26 00:00:00 2020-07-26 00:00:00 Orders Only Doctor Unassigned, [place] [facility] 1.2.840.114 350.1.13.10 4.2.7.2.686 [id number] [id number] [facility] 2020-07-26 00:00:00 2020-07-26 00:00:00 Refill [facility] Building 1.2.840.114 350.1.13.10 4.2.7.2.686 [id number] 231 [id number] [facility] 2020-07-12 08:10:00 2020-07-12 08:10:00 Outpatient GAMALIEL ARTEAGA [facility] [id number] [facility] 2020-07-06 15:09:34 2020-07-06 15:39:34 Office Visit Elizabeth Lipscomb [facility] Building 1.2840.114 350.1.13.10 4.2.7.2.686 [id number] [facility] 2020-07-06 15:30:00 2020-07-06 15:30:00 Outpatient R ELIZABETH LIPSCOMB STRAHIL [facility] [id number] [facility] 2020-06-29 00:00:00 2020-06-29 00:00:00 Telephone Dayanna Goldstein [facility] 1.284.114 350.1.13.10 4.2.7.2.686 [id number] 231 [id number] [facility] 2020-06-20 00:00:00 2020-06-20 00:00:00 Refill Leigh Austin [facility] 1.2.84.114 350.1.13.10 4.2.7.2.686 [id number] 059 [id number] [facility] 2020-06-14 10:46:14 2020-06-14 11:01:14 Aluminum Polisher Visit Pob, Adc Lab Main Dayanna Goldstein [facility] 1.284.114 350.1.13.10 4.2.7.2.686 [id number] [facility] 2020-06-14 10:45:00 2020-06-14 10:45:00 Outpatient R DAYANNA GOLDSTEIN [facility] [id number] [facility] 2020-06-13 10:30:00 2020-06-13 23:59:00 Hospital Encounter Lizeth Mooreig Nader [facility] 1.284.114 350.1.13.10 4.2.7.2.686 [id number] [facility] 2020-06-13 15:22:30 2020-06-13 15:58:01 Office Visit Doug Anderson [facility] junaid Serrano 1.2.840.114 350.1.13.10 4.2.7.2.686 [id number] [facility] 2020-06-13 15:30:00 2020-06-13 15:30:00 Outpatient JOSE MILLER [facility] [id number] [facility] 2020-06-13 14:19:42 2020-06-13 15:13:32 Office Visit Dayanna Goldstein [facility] 1.2840.114 350.1.13.10 4.2.7.2.686 [id number] 231 [id number] [facility] 2020-06-13 00:00:00 2020-06-13 00:00:00 Telephone Jose Moore [facility] Surgical Special junaid Serrano 1.2840.114 350.1.13.10 4.2.7.2.686 [id number] [facility] 2020-06-07 00:00:00 2020-06-07 00:00:00 Refill Leigh Austin [facility] Building 1.284.114 350.1.13.10 4.2.7.2.686 [id number] 059 [id number] [facility] 2020-06-07 00:00:00 2020-06-07 00:00:00 Refill Dayanna Goldstein [facility] Building 1.284.114 350.1.13.10 4.2.7.2.686 [id number] 231 [id number] [facility] 2020-06-02 14:00:00 2020-06-02 14:00:00 Outpatient CRISTINE WEBB [facility] [id number] [facility] 2020-06-02 12:56:00 2020-06-02 13:16:00 Laboratory Only Lab, Adc Fam Pob I Cristine Mcpherson [facility] Office Building One 1.114 350.1.13.10 4.2.7.2.686 [id number] 044 [id number] [facility] 2020-05-29 00:00:00 2020-05-29 00:00:00 Patient [facility] 1.114 350.1.13.10 4.2.7.2.686 [id number] 059 [id number] [facility] 2020-05-25 12:51:41 2020-05-25 13:48:42 Laboratory Only Pc, Adc Echo Room [address] [place] [address] [facility] 1.114 350.1.13.10 4.2.7.2.686 [id number] 059 [id number] [facility] 2020-05-25 13:00:00 2020-05-25 13:00:00 Outpatient R GRAYÁNGEL LINDSAY [facility] [id number] [facility] 2020-05-16 13:14:11 2020-05-16 14:21:50 [facility] 1.114 350.1.13.10 4.2.7.2.686 [id number] 059 [id number] [facility] 2020-05-16 13:40:00 2020-05-16 13:40:00 Outpatient [facility] [id number] [facility] 2020-05-16 11:37:12 2020-05-16 11:57:12 Laboratory Only Lab, Adc Fam Pob I Dayanna Goldstein Cynthia [facility] Office Building One 1.2.840.114 350.1.13.10 4.2.7.2.686 [id number] 044 [id number] [facility] 2020-05-10 00:00:00 2020-05-10 00:00:00 Telephone [facility] 1.2.840.114 350.1.13.10 4.2.7.2.686 [id number] 231 [id number] [facility] 2020-03-04 14:00:00 2020-03-04 14:00:00 Outpatient R LUISABRITTASASKIA [facility] [id number] [facility] 2020-03-01 00:00:00 2020-03-01 00:00:00 Telephone Diomedes Austintoni [facility] nal Building 1.2.840.114 350.1.13.10 4.2.7.2.686 [id number] 059 [id number] [facility] 2020-02-18 00:00:00 2020-02-18 00:00:00 Refill [facility]odSaskia ballard [facility] 1.2.840.114 350.1.13.10 4.2.7.2.686 [id number] 044 [id number] [facility] 2020-02-18 00:00:00 2020-02-18 00:00:00 Refill [facility] 1.2.840.114 350.1.13.10 4.2.7.2.686 [id number] [facility] 2020-02-18 00:00:00 2020-02-18 00:00:00 Refill Leigh [facility] 1.2.840.114 350.1.13.10 4.2.7.2.686 [id number] 059 [id number] [facility] 2020-02-15 11:00:00 2020-02-15 11:00:00 Outpatient R DAYANNA GOLDSTEIN [facility] [id number] [facility] 2020-01-25 00:00:00 2020-01-25 00:00:00 [facility] 1.2.840.114 350.1.13.10 4.2.7.2.686 [id number] 059 [id number] [facility] 2019-12-28 00:00:00 2019-12-28 00:00:00 [facility] 1.2.84.114 350.1.13.10 4.2.7.2.686 [id number] 059 [id number] [facility] 2019-12-22 00:00:00 2019-12-22 00:00:00 Refill [facility] Building 1.284.114 350.1.13.10 4.2.7.2.686 [id number] 059 [id number] [facility] 2019-12-08 09:40:00 2019-12-08 09:40:00 Outpatient R SASKIA PEREZ [facility] [id number] [facility] 2019-12-04 13:40:00 2019-12-04 13:40:00 Outpatient R SASKIA PEREZ [facility] [id number] [facility] 2019-12-03 14:53:12 2019-12-03 16:31:20 Aluminum Polisher Visit 2, Adc Lab Brielle [facility] Building 1.2.84.114 350.1.13.10 4.2.7.2.686 [id number] [facility] 2019-12-03 13:39:25 2019-12-03 14:38:34 Office Visit Saskia Perez [facility] Building 1.284.114 350.1.13.10 4.2.7.2.686 [id number] 044 [id number] [facility] 2019-12-03 14:00:00 2019-12-03 14:00:00 Outpatient Ghazal VALEROBRITTA SASKIA [facility] [id number] [facility] 2019-12-03 00:00:00 2019-12-03 00:00:00 Orders Only Doctor Unassigned, [place] [facility] 1.2.840.114 350.1.13.10 4.2.7.2.686 [id number] 009 [id number] [facility] 2019-11-27 08:26:42 2019-11-27 09:45:00 Emergency Shaina Alemannell [facility] 1.2.840.114 350.1.13.10 4.2.7.2.686 [id number] 084 [id number] [facility] 2019-11-27 08:26:42 2019-11-27 09:45:00 Emergency X ALEMANSHAINAKEL [facility] ERT [id number] [facility] 2019-11-27 00:00:00 2019-11-27 00:00:00 Orders Only Doctor Unassigned, [place] [facility] 1.2.840.114 350.1.13.10 4.2.7.2.686 [id number] 009 [id number] [facility] 2019-11-24 13:25:04 2019-11-24 15:39:00 Emergency Kel Aleman K Paige [facility] 1.2.840.114 350.1.13.10 4.2.7.2.686 [id number] 084 [id number] [facility] 2019-11-24 13:25:04 2019-11-24 15:39:00 Emergency X Jo JAIMES [facility] ERT [id number] [facility] 2019-11-24 00:00:00 2019-11-24 00:00:00 Orders Only Doctor Unassigned, [place] [facility] 1.2.840.114 350.1.13.10 4.2.7.2.686 [id number] 009 [id number] [facility] 2019-11-24 00:00:00 2019-11-24 00:00:00 Transition of Care Jessica Beltran 1.20.114 350.1.13.10 4.2.7.2.686 [id number] [facility] 2019-11-24 00:00:00 2019-11-24 00:00:00 Telephone Sask[facility] Perez [facility] Building 1..114 350.1.13.10 4.2.7.2.686 [id number] 044 [id number] [facility] 2019-11-20 06:46:04 2019-11-20 08:56:00 Emergency Yin Han [facility] 1..114 350.1.13.10 4.2.7.2.686 [id number] 084 [id number] [facility] 2019-11-20 06:46:04 2019-11-20 08:56:00 Emergency X YIN HAN [facility] ERT [id number] [facility] 2019-11-20 00:00:00 2019-11-20 00:00:00 Orders Only Doctor Unassigned, [place] [facility] 1.2114 350.1.13.10 4.2.7.2.686 [id number] 009 [id number] [facility] 2019-11-17 07:20:00 2019-11-17 07:20:00 Outpatient R SASKIA PEREZ [facility] [id number] [facility] 2019-10-19 00:00:00 2019-10-19 00:00:00 Telephone Dayanna Goldstein [facility] Building 1..114 350.1.13.10 4.2.7.2.686 [id number] 044 [id number] [facility] 2019-10-19 00:00:00 2019-10-19 00:00:00 Reffannie Leigh Austin [facility] Building 1.2.840.114 350.1.13.10 4.2.7.2.686 [id number] 059 [id number] [facility] 2019-10-19 00:00:00 2019-10-19 00:00:00 Telephone Saskia Perez [facility] Building 1.2.840.114 350.1.13.10 4.2.7.2.686 [id number] 044 [id number] [facility] 2019-10-13 00:00:00 2019-10-13 00:00:00 Orders Only Doctor Unassigned, [place] [facility] 1.2.840.114 350.1.13.10 4.2.7.2.686 [id number] 009 [id number] [facility] 2019-10-09 00:00:00 2019-10-09 00:00:00 Telephone Dayanna Goldstein [facility] 1.2.840.114 350.1.13.10 4.2.7.2.686 [id number] 231 [id number] [facility] 2019-09-30 00:00:00 2019-09-30 00:00:00 RefLeigh Marin [facility] Building 1.2.840.114 350.1.13.10 4.2.7.2.686 [id number] 059 [id number] [facility] 2019-09-30 00:00:00 2019-09-30 00:00:00 Telephone Dayanna Goldstein [facility] Building 1.2.840.114 350.1.13.10 4.2.7.2.686 [id number] 231 [id number] [facility] 2019-09-29 00:00:00 2019-09-29 00:00:00 Refill GoldsteinKatDayanna A [facility] Building 1.2.840.114 350.1.13.10 4.2.7.2.686 [id number] 044 [id number] [facility] 2019-09-22 00:00:00 2019-09-22 00:00:00 Refill Leigh Austin [facility] Building 1.2.840.114 350.1.13.10 4.2.7.2.686 [id number] 059 [id number] [facility] 2019-09-18 00:00:00 2019-09-18 00:00:00 Refill eLigh Austin [facility] Building 1.2.840.114 350.1.13.10 4.2.7.2.686 [id number] 059 [id number] [facility] 2019-09-18 00:00:00 2019-09-18 00:00:00 Telephone GoldsteinKatDayanna A [facility] 1.2.840.114 350.1.13.10 4.2.7.2.686 [id number] 231 [id number] [facility] 2019-09-16 00:00:00 2019-09-16 00:00:00 Refill Kat Goldsteinzaester Ely [facility] 1.2.840.114 350.1.13.10 4.2.7.2.686 [id number] 044 [id number] [facility] 2019-09-08 12:34:35 2019-09-08 13:17:04 Office Visit Doug Anderson [facility] junaid Serrano 1.2.840.114 350.1.13.10 4.2.7.2.686 [id number] [facility] 2019-09-08 13:00:00 2019-09-08 13:00:00 Outpatient R DOUG ANDERSON [facility] [id number] [facility] 2019-09-03 13:27:07 2019-09-03 14:53:44 Office Visit LuisacristinaSaskia harding [facility] 1.84.114 350.1.13.10 4.2.7.2.686 [id number] 044 [id number] [facility] 2019-09-03 13:40:00 2019-09-03 13:40:00 Outpatient R LUISABRITTASASKIA [facility] [id number] [facility] 2019-09-01 13:45:00 2019-09-01 13:45:00 Outpatient R DOUG ANDERSON [facility] [id number] [facility] 2019-09-01 12:33:29 2019-09-01 12:48:29 Office Visit Doug Anderson [facility] 1.84.114 350.1.13.10 4.2.7.2.686 [id number] [facility] 2019-08-28 00:00:00 2019-08-28 00:00:00 Dayanna Cruz [facility] 1.840.114 350.1.13.10 4.2.7.2.686 [id number] 044 [id number] [facility] 2019-08-27 00:00:00 2019-08-27 00:00:00 Telephone Leigh Austin [facility] Building 1..840.114 350.1.13.10 4.2.7.2.686 [id number] 059 [id number] [facility] 2019-08-26 00:00:00 2019-08-26 00:00:00 Orders Only Doctor Unassigned, [place] [facility] 1.84.114 350.1.13.10 4.2.7.2.686 [id number] 009 [id number] [facility] 2019-08-25 10:07:32 2019-08-25 10:22:32 Office Visit Doug Anderson [facility] junaid Serrano 1.2840.114 350.1.13.10 4.2.7.2.686 [id number] 198 [id number] [facility] 2019-08-25 10:00:00 2019-08-25 10:00:00 Outpatient R DOUG ANDERSON [facility] [id number] [facility] 2019-08-25 00:00:00 2019-08-25 00:00:00 Refill Saskia Perez [facility] Building 1.84.114 350.1.13.10 4.2.7.2.686 [id number] 044 [id number] [facility] 2019-08-24 00:00:00 2019-08-24 00:00:00 Telephone Jose Moore [facility] Surgical Special junaid Serrano 1.284.114 350.1.13.10 4.2.7.2.686 [id number] 198 [id number] [facility] 2019-08-20 13:00:00 2019-08-20 13:00:00 Outpatient VAMSI ELLIS SHIWAN [facility] [id number] [facility] 2019-08-19 13:29:24 2019-08-19 14:29:24 Laboratory Only Pc, Adc Echo Room 1 - [facility] Building 1..84.114 350.1.13.10 4.2.7.2.686 [id number] 059 [id number] [facility] 2019-08-19 07:11:58 2019-08-19 10:55:43 Office Visit Saskia Perez [facility] Building 1.2840.114 350.1.13.10 4.2.7.2.686 [id number] 044 [id number] [facility] 2019-08-19 00:00:00 2019-08-19 00:00:00 Refill LuisavinodSaskia ballard [facility] Building 1.2.840.114 350.1.13.10 4.2.7.2.686 [id number] 044 [id number] [facility] 2019-08-19 00:00:00 2019-08-19 00:00:00 Telephone Leigh Austin [facility] Building 1.2.840.114 350.1.13.10 4.2.7.2.686 [id number] 059 [id number] [facility] 2019-08-19 00:00:00 2019-08-19 00:00:00 Telephone NormanMarleentoni [facility] 1.2.840.114 350.1.13.10 4.2.7.2.686 [id number] 059 [id number] [facility] 2019-08-13 00:00:00 2019-08-13 00:00:00 Orders Only Doctor Unassigned, [place] [facility] 1.2.840.114 350.1.13.10 4.2.7.2.686 [id number] 009 [id number] [facility] 2019-08-12 14:32:39 2019-08-12 14:47:39 Office Visit Doug Anderson [facility] Health Surgical Specialti junaid Volga 1.2.840.114 350.1.13.10 4.2.7.2.686 [id number] 198 [id number] [facility] 2019-08-12 12:41:04 2019-08-12 13:34:15 Office Visit Norman Diomedestoni [facility] 1.2.840.114 350.1.13.10 4.2.7.2.686 [id number] 059 [id number] [facility] 2019-07-17 00:00:00 2019-07-17 00:00:00 RefLeigh Marin [facility] 1.2.840.114 350.1.13.10 4.2.7.2.686 [id number] 059 [id number] [facility] 2019-07-16 10:19:00 2019-07-16 23:59:00 Hospital Encounter Saskia Perez [facility] 1.2.840.114 350.1.13.10 4.2.7.2.686 [id number] 807 [id number] [facility] 2019-07-16 10:17:17 2019-07-16 10:32:17 Aluminum Polisher Visit Pob, Adc Lab Main Saskia Perez [facility] Building 1.2.840.114 350.1.13.10 4.2.7.2.686 [id number] 353 [id number] [facility] 2019-07-16 09:03:37 2019-07-16 10:00:07 Office Visit Saskia Perez [facility] Building 1.2.840.114 350.1.13.10 4.2.7.2.686 [id number] 044 [id number] [facility] 2019-07-16 00:00:00 2019-07-16 00:00:00 Orders Only Doctor Unassigned, [place] [facility] 1.2.840.114 350.1.13.10 4.2.7.2.686 [id number] 009 [id number] [facility] 2019-07-16 00:00:00 2019-07-16 00:00:00 Refill Saskia Perez [facility] Building 1.2.840.114 350.1.13.10 4.2.7.2.686 [id number] 044 [id number] [facility] 2019-07-15 00:00:00 2019-07-15 00:00:00 Telephone Dayanna Goldstein [facility] Building 1.2.840.114 350.1.13.10 4.2.7.2.686 [id number] 044 [id number] [facility] 2019-07-14 00:00:00 2019-07-14 00:00:00 Refill Leigh Austin [facility] Building 1.2.840.114 350.1.13.10 4.2.7.2.686 [id number] 059 [id number] [facility] 2019-07-14 00:00:00 2019-07-14 00:00:00 Refill Goldstein Dayanna Ely [facility] 1.2.840.114 350.1.13.10 4.2.7.2.686 [id number] 044 [id number] [facility] 2019-07-02 00:00:00 2019-07-02 00:00:00 Telephone Saskia Perez [facility] 1.2.840.114 350.1.13.10 4.2.7.2.686 [id number] 044 [id number] [facility] 2019-03-13 00:00:00 2019-03-13 00:00:00 Telephone Dayanna Goldstein [facility] 1.2.840.114 350.1.13.10 4.2.7.2.686 [id number] 044 [id number] [facility] 2019-03-10 16:11:29 2019-03-10 23:59:00 Hospital Encounter Saskia Perez [facility] 1.2.840.114 350.1.13.10 4.2.7.2.686 [id number] [id number] [facility] 2019-03-10 14:04:24 2019-03-10 15:57:17 Office Visit Saskia Perez [facility] 1.2.840.114 350.1.13.10 4.2.7.2.686 [id number] 044 [id number] [facility] 2019-03-04 00:00:00 2019-03-04 00:00:00 Refill [facility] 1.2.840.114 350.1.13.10 4.2.7.2.686 [id number] [facility] 2019-02-24 00:00:00 2019-02-24 00:00:00 Refill Dayanna Goldstein [facility] 1.2.840.114 350.1.13.10 4.2.7.2.686 [id number] 231 [id number] [facility] 2019-02-20 14:29:30 2019-02-20 15:29:29 Office Visit Saskia Perez [facility] 1.2.840.114 350.1.13.10 4.2.7.2.686 [id number] 044 [id number] [facility] 2019-02-19 00:00:00 2019-02-19 00:00:00 Telephone GoldsteinDayanna connelly Solis [facility] 1.2.840.114 350.1.13.10 4.2.7.2.686 [id number] 231 [id number] [facility] 2019-02-17 00:00:00 2019-02-17 00:00:00 Telephone Dayanna Goldstein [facility] 1.2.840.114 350.1.13.10 4.2.7.2.686 [id number] 231 [id number] [facility] 2019-02-17 00:00:00 2019-02-17 00:00:00 Telephone GoldsteinDayanna connelly Solis [facility] 1.2.840.114 350.1.13.10 4.2.7.2.686 [id number] 231 [id number] [facility] 2019-02-13 14:55:57 2019-02-13 16:17:20 Office Visit Saskia Perez [facility] 1.2.840.114 350.1.13.10 4.2.7.2.686 [id number] [id number] [facility] 2019-02-12 00:00:00 2019-02-12 00:00:00 Telephone Kat Goldsteinzaester Ely [facility] 1.2.840.114 350.1.13.10 4.2.7.2.686 [id number] 231 [id number] [facility] 2019-02-09 15:25:36 2019-02-09 17:02:20 Office Visit Saskia Perez [facility] 1.2.840.114 350.1.13.10 4.2.7.2.686 [id number] 044 [id number] [facility] 2019-02-09 14:25:41 2019-02-09 15:23:26 Nurse Visit Nurse, [facility] [facility] Kat Goldsteinzabeshaun Ely [facility] [id number] 350.1.13.10 4.2.7.2.686 [id number] [facility] 2019-02-06 00:00:00 2019-02-06 00:00:00 Telephone Kat Goldsteinzabeth Solis [facility] [id number] 350.1.13.10 4.2.7.2.686 [id number] [facility] 2019-01-28 13:27:17 2019-01-28 16:13:05 Ancillary Visit Latisha Burk Craig L [facility] [id number] 350.1.13.10 4.2.7.2.686 [id number] [facility] 2019-01-22 00:00:00 2019-01-22 00:00:00 Telephone Leigh Austin [facility] Zach miranda [facility] [id number] [id number] 4.2.7.2.686 [id number] [facility] Results Test Description Test Time Test Comments Results Result Comments Source XR HIPS 2 VW RIGHT 2024-05 01:31:0 9 ORDERING PHYSICIAN: BRENDAN OCASIO. HISTORY: right hip pain x 4 days TECHNIQUE: AP pelvis and 2 views right hip COMPARISON: None. FINDINGS: The alignment is anatomic. No fracture is identified. Right hip superiorjoint space narrowing and subchondral sclerosis is present. The left hip,pubic symphysis, and SI joints are normal. There is severe diffuse lumbarspondylosis. Pelvic phleboliths are present. [facility] XR HIPS 2 VW LEFT 2023-11 17:03:5 3 HISTORY: ?Pain. FINDINGS: AP view of the pelvis, AP and lateral views are centered over theleft hip joint showed no acute fracture or dislocation. No aggressive bonelesions. No signs of AVN in the femoral heads. 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 Incidental note made of moderate degenerative disc disease in thevisualized lower 3 lumbar discs. CONCLUSIONS: No acute fracture or dislocation in left hip or pelvis. [facility] CT THORAX W CONTRAST 2023-08 22:27:5 2 PROCEDURE: CT CHEST WITHOUT CONTRAST - CHEST PROTOCOL CLINICAL INDICATION: ?c/o cough for about 6 weeks. Reviewed previous CXRand recommend CT scan for follow up. Comparison: 10/22/2020, 08/31/2017 TECHNIQUE: Volumetric images of the chest were acquired (from lung apicesto bases) without contrast. Images were reconstructed at 2.5 mm slicethickness. MIP axial images, coronal and sagittal reformats were alsosubmitted for interpretation. FINDINGS: LUNGS AND PLEURA: Persistent small right lung, containing roundedatelectasis in the lower lobe and associated with concentric pleuralthickening with areas of calcifications in the anterosuperior andposteroinferior parietal pleura The background lungs demonstrate mild diffuse bronchial wall thickening. Nodefinite discrete suspicious nodules. LYMPH NODES: Left lower paratracheal 12 mm lymph node has been noted sinceit 2017, likely reactive. There are a few smaller lymph nodes. Nointrathoracic lymphadenopathy. Calcified granulomas in the subcarinalregion. MEDIASTINUM AND LOWER NECK: No central airway lesions are detected. Theesophagus is within normal limits. The included thyroid gland appearsnormal. HEART AND GREAT VESSELS: The heart is normal in size with dilatation ofboth ventricles. The RV to LV ratio is about 1. No pericardialabnormalities are identified. The thoracic aorta is normal in caliber with mild atherosclerotic plaque.Tortuous arch vessels and mild atherosclerotic calcifications with aproximal SMA without flow limiting stenosis. Moderate atherosclerotic calcifications of the coronary vessels. The pulmonary trunk is 3.6 cm. The main branches are 3.6 and 2.9 cm rightand left respectively. The right inferior pulmonary vein is attenuated, likely associated with theunderlying chronic lung parenchymal changes. Metallic densities may be dueto postsurgical changes anterior to the transverse colon. VISUALIZED UPPER ABDOMEN: Hypertrophic left liver lobe. 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 No soft tissue abnormalities. [facility] ([facility] by Quantitative NAAT 2023-08-07 21:23:04* Test Item Value Reference Range Interpretation Comme nts HCV Quantitative Interpretation (test code = 5468240967) Not Detected Not Detected RONALDO (test code = RONALDO) The Aptima HCV Joaquim nt Dx assay is an FDA-approved real-time gear technician-mediated amplification (TMA) test used for both detection and quantitation of hepatitis C virus (HCV) RNA in human serum and plasma from HCV-infected individuals. ?It is intended for use as an aid in the diagnosis of active HCV infection and the management of HCV-infected patients undergoing HCV antiviral drug therapy. ?It is not approved for use as a screening test for the presence of HCV RNA in blood or blood products. The quantitative range of this assay is 1.00 - 8.00 log IU/mL or 10 - 100,000,000 IU/mL. An interpretation of "Not Detected" does not rule out the presence of inhibitors in the patient specimen or HCV RNA concentration below the level of detection of the test. ?Care should be taken when interpreting any single viral load determination. Detected, not Quantifiable: HCV RNA detected, but at a level below 10 IU/mL (1.0 log IU/mL). ?HCV RNA concentration is below the lower limit of quantitation of the assay. Indeterminate: Error indicated in the generation of the result. ?Please submit a new specimen for repeat testing if clinically indicated. Lab Interpretation (test code = 96258-9) Normal [facility] by Quantitative NAAT 2023-08-07 21:23:04* Test Item Value Reference Range Interpretation Comme nts HCV Quantitative Interpretation (test code = 5015654778) Not Detected Not Detected RONALDO (test code = RONALDO) The Aptima HCV Joaquim nt Dx assay is an FDA-approved real-time gear technician-mediated amplification (TMA) test used for both detection and quantitation of hepatitis C virus (HCV) RNA in human serum and plasma from HCV-infected individuals. ?It is intended for use as an aid in the diagnosis of active HCV infection and the management of HCV-infected patients undergoing HCV antiviral drug therapy. ?It is not approved for use as a screening test for the presence of HCV RNA in blood or blood products. The quantitative range of this assay is 1.00 - 8.00 log IU/mL or 10 - 100,000,000 IU/mL. An interpretation of "Not Detected" does not rule out the presence of inhibitors in the patient specimen or HCV RNA concentration below the level of detection of the test. ?Care should be taken when interpreting any single viral load determination. Detected, not Quantifiable: HCV RNA detected, but at a level below 10 IU/mL (1.0 log IU/mL). ?HCV RNA concentration is below the lower limit of quantitation of the assay. Indeterminate: Error indicated in the generation of the result. ?Please submit a new specimen for repeat testing if clinically indicated. Lab Interpretation (test code = 84413-5) Normal [facility] Xwtdcxfj0059-12-12 09:00:36* Test Item Value Reference Range Interpretation Comme nts HCV Ab (test code = 45565-3) Presumptive Positive HCV Semi-Quantitative (test code = 26348-5) 1.94 RONALDO (test code = RONALDO) Presumptive positive for HCV antibody with a low signal to cutoff ration (s/c). ?This may represent a false positive. ?This specimen has been reflexed to Hepatitis C Virus (HCV) by Quantitative NAAT and submitted to the Microbiology laboratory. A report will be issued by that laboratory. ?If any questions, contact the Clinical Chemistry Director demolition hammer operator at [phone]. ? [facility] Hmevxuan6248-48-54 09:00:36* Test Item Value Reference Range Interpretation Comme nts HCV Ab (test code = 94966-7) Presumptive Positive HCV Semi-Quantitative (test code = 69877-9) 1.94 RONALDO (test code = RONALDO) Presumptive positive for HCV antibody with a low signal to cutoff ration (s/c). ?This may represent a false positive. ?This specimen has been reflexed to Hepatitis C Virus (HCV) by Quantitative NAAT and submitted to the Microbiology laboratory. A report will be issued by that laboratory. ?If any questions, contact the Clinical Chemistry Director demolition hammer operator at [phone]. ? [facility] [id number] 03:10:37* Test Item Value Reference Range Interpretation Comme nts FREE T4 (test code = 0179249258) 0.94 0.78-2.20 Lab Interpretation (test cod e = 35796-2) Normal [facility] [id number] 03:10:37* Test Item Value Reference Range Interpretation Comme nts FREE T4 (test code = 3514572545) 0.94 0.78-2.20 Lab Interpretation (test cod e = 40984-7) Normal [facility] CenterProstatic Specific Iygwtte5015-58-81 01:49:31 * Test Item Value Reference Range Interpretation Comme nts PSA (test code = 2683464552) 2.56 ng/mL <=4.00 RONALDO (test code = RONALDO) Biotin has been reported to cause a negative bias, interpret results relative to patient's use of biotin.The [employer] PSA assay was used. ?Results obtained with different test methods or kits may be different and cannot be used interchangeably. Lab Interpretation (test code = 71040-5) [facility] Pxcjwmh6081-36-01 01:49:31 * Test Item Value Reference Range Interpretation Comme nts PSA (test code = 2656017859) 2.56 ng/mL <=4.00 RONALDO (test code = RONALDO) Biotin has been reported to cause a negative bias, interpret results relative to patient's use of biotin.The [employer] PSA assay was used. ?Results obtained with different test methods or kits may be different and cannot be used interchangeably. Lab Interpretation (test code = 02466-4) Normal [facility] CenterThyroid Stimulating Homznak1840-72-33 01:44:51 * Test Item Value Reference Range Interpretation Comme nts TSH (test code = 6399548294) 1.79 0.45-4.70 Lab Interpretation (test cod e = 82678-5) Normal [facility] CenterThyroid Stimulating Qupoyqt4562-36-18 01:44:51 * Test Item Value Reference Range Interpretation Comme nts TSH (test code = 9074801883) 1.79 0.45-4.70 Lab Interpretation (test cod e = 48827-8) Normal [facility] CenterLipid Panel (66047)(Total Cholesterol, Triglycerides, HDL)2023-08-07 01:18:27* Test Item Value Reference Range Interpretation Comme nts CHOL (test code = 0641638811) 138 mg/dL 120-200 HDL (test code = 1043728322) 46 mg/dL >=40 HDLC RATIO (test code = 2282648106) 3.0 <=5.0 TRIG (test code = 0516032287) 84 mg/dL 30-170 LDL CHOL (test code = 27057-7) 75 mg/dL <=160 VLDL (test code = 1118014667) 17 mg/dL 5-60 Lab Interpretation (test cod e = 75635-4) Normal [facility] Center[facility] Panel (79999)(Total Cholesterol, Triglycerides, HDL)2023-08-07 01:18:27* Test Item Value Reference Range Interpretation Comme nts CHOL (test code = 8369013358) 138 mg/dL 120-200 HDL (test code = 4443497705) 46 mg/dL >=40 HDLC RATIO (test code = 7697379166) 3.0 <=5.0 TRIG (test code = 9382321389) 84 mg/dL 30-170 LDL CHOL (test code = 53366-6) 75 mg/dL <=160 VLDL (test code = 0552741885) 17 mg/dL 5-60 Lab Interpretation (test cod e = 57103-3) Normal [facility] CenterGlycosylated Hemoglobin (A1C)2023-08-06 22:27:57* Test Item Value Reference Range Interpretation Comme nts HGB A1C (test code = 4548-4) 5.9 % 4.0-5.7 H RONALDO (test code = RONALDO) Reference RangesNormal: <5.7%Prediabetes: 5.7 - 6.4%Diabetes: > 6.5% Lab Interpretation (test code = 88673-6) Abnormal [facility] CenterGlycosylated Hemoglobin (A1C)2023-08-06 22:27:57* Test Item Value Reference Range Interpretation Comme nts HGB A1C (test code = 4548-4) 5.9 % 4.0-5.7 H RONALDO (test code = RONALDO) Reference RangesNormal: <5.7%Prediabetes: 5.7 - 6.4%Diabetes: > 6.5% Lab Interpretation (test code = 74863-2) Abnormal [facility] CenterCOMP. METABOLIC PANEL (46269)2022-05-31 00:23:26* Test Item Value Reference Range Interpretation Comme nts NA (test code = 9912029093) 139 mmol/L 135-145 K (test code = 7178823460) 4.6 mmol/L 3.5-5.0 CL (test code = 2070277339) 103 mmol/L 98-108 CO2 TOTAL (test code = 6508343316) 27 mmol/L 23-31 AGAP (test code = 9234883342) 2-16 BUN (test code = 3973545461) 14 mg/dL 7-23 GLUCOSE (test code = 8295038052) 101 mg/dL 70-110 CREATININE (test code = 7418516011) 0.88 mg/dL 0.60-1.25 TOTAL BILI (test code = 8848533281) 0.9 mg/dL 0.1-1.1 CALCIUM (test code = 7288281110) 9.1 mg/dL 8.6-10.6 T PROTEIN (test code = 4496492574) 7.3 g/dL 6.3-8.2 ALBUMIN (test code = 3163547210) 4.1 g/dL 3.5-5.0 ALK PHOS (test code = 1833738337) 58 U/L 34-122 ALTv (test code = 1742-6) 23 U/L 5-50 AST(SGOT) (test code = 7079402866) 34 U/L 13-40 eGFR (test code = 7608113547) mL/min/1.73m2 RONALDO (test code = RONALDO) Association of Glomerular Filtration Rate (GFR) and Staging of Kidney Disease* + + +- +| GFR (mL/min/1.73 m2) ?| With Kidney Damage ?| ?Without Kidney Damage+ ------+ ----+ ------+| ?>90 ?| ?Stage one ?| ? Normal ?+ -+ + -+| ?60-89 ?| ?Stage two ?| ? Decreased GFR ? + + +- +| ?30-59 ?| ?Stage three ?| ? Stage three ? + + +- +| ?15-29 ?| ?Stage four ? | ? Stage four ?+ -+ + -+| ?<15 (or dialysis) ? ?| ?Stage five ? | ? Stage five ?+ -+ + -+ *Each stage assumes the associated GFR level has been in effect for at least three months. ?Stages 1 to 5, with or without kidney disease, indicate chronic kidney disease. Notes: Determination of stages one and two (with eGFR >59mL/min/1.73 m2) requires estimation of kidney damage for at least three months as defined by structural or functional abnormalities of the kidney, manifested by either:Pathological abnormalities or Markers of kidney damage (including abnormalities in the composition of the blood or urine or abnormalities in imaging tests). [facility] CenterLIPASE2022-12-01 00:22:46* Test Item Value Reference Range Interpretation Comme nts LIPASE (test code = 3311851468) 45 U/L 0-220 Lab Interpretation (test cod e = 96422-1) Normal [facility] WITH [id number] 00:05:23* Test Item Value Reference Range Interpretation Comme nts WBC (test code = 6690-2) See_Comment [Automated messa ge] The system which generated this result transmitted reference range: 4.20 - 10.70 10*3/?L. The reference range was not used to interpret this result as normal/abnormal. RBC (test code = 789-8) See_Comment [Automated messa ge] The system which generated this result transmitted reference range: 4.26 - 5.52 10*6/?L. The reference range was not used to interpret this result as normal/abnormal. HGB (test code = 718-7) 12.8 g/dL 12.2-16.4 HCT (test code = 4544-3) 40.3 % 38.4-49.3 MCV (test code = 787-2) 92.2 fL 81.7-95.6 MCH (test code = 785-6) 29.3 pg 26.1-32.7 MCHC (test code = 786-4) 31.8 g/dL 31.2-35.0 RDW-SD (test code = 12443-7) 47.3 fL 38.5-51.6 RDW-CV (test code = 788-0) 13.9 % 12.1-15.4 PLT (test code = 777-3) See_Comment [Automated messa ge] The system which generated this result transmitted reference range: 150 - 328 10*3/?L. The reference range was not used to interpret this result as normal/abnormal. MPV (test code = 97136-9) 10.0 fL 9.8-13.0 NRBC/100 WBC (test code = 8917393834) See_Comment [Automated me ssage] The system which generated this result transmitted reference range: 0.0 - 10.0 /100 WBCs. The reference range was not used to interpret this result as normal/abnormal. NRBC x10^3 (test code = 0068447304) See_Comment [Automated me ssage] The system which generated this result transmitted reference range: 10*3/?L. The reference range was not used to interpret this result as normal/abnormal. GRAN MAT (NEUT) % (test code = 770-8) 68.3 % IMM GRAN % (test code = 2674595993) 0.50 % LYMPH % (test code = 736-9) 17.9 % MONO % (test code = 5905-5) 8.9 % EOS % (test code = 713-8) 3.9 % BASO % (test code = 706-2) 0.5 % GRAN MAT x10^3(ANC) (test code = 8741786302) 5.91 10*3/uL 1.99-6.95 IMM GRAN x10^3 (test code = 2644981073) 0.04 10*3/uL 0.00-0.06 LYMPH x10^3 (test code = 731-0) 1.55 10*3/uL 1.09-3.23 MONO x10^3 (test code = 742-7) 0.77 10*3/uL 0.36-1.02 EOS x10^3 (test code = 711-2) 0.34 10*3/uL 0.06-0.53 BASO x10^3 (test code = 704-7) 0.04 10*3/uL 0.01-0.09 [facility] CenterCULTPARKWOOD BE[facility]IOR[facility], [id number] 09:44:19SPECIMEN NUMBER: [id number] CULTURE, ROUTINE SPECIMEN NUMBER: [id number] SPECIMEN COMMENT: BACK SOURCE: BACK REPORT STATUS: FINAL DIRECT GRAM STAIN: NO WBCs SEEN NO BACTERIA SEEN FINAL REPORT: 06/26/2021 FEW NORMAL SKIN SON PRELIMINARY REPORT: 06/24/2021 FEW MIXED GRAM POSITIVE SON PRELIMINARY REPORT #2: 06/25/2021 FEW MIXED GRAM POSITIVE SON UNLESS OTHERWISE INDICATED, ALL TESTING PERFORMED [facility] [address] [place] [address] BORDER INSPECTOR: JOVANI WU M.D. CLIA NUMBER [id number] [place]. [id number], LOVELDO4514-11-87 00:00:00* Test Item Value Reference Range Interpretation Comme nts CULTURE, ROUTINE (test code = 78062) SPECIMEN NUMBER: [id number] Umesh F Ruiz Notes Date/Time Note Provider Source 2024-05-26 18:11:55 Called pt. Inform xray results., no answer wasn't able to leave vm LOCATOR Reid Cage MA [facility] 2024-05-26 17:58:54 Daron Jay Jr is a 78 year old male that is requesting xray results from 05/25/24. Please advise. A [place] Heather [facility] 2024-01-03 12:42:17 Assessment: The [facility] pharmacy report shows the Patient should have requested a refill of Jardiance 10 mg on or after 11/19/2023 from [facility] pharmacy. Plan/Interventions: Bertha Oneil RN, Certified Real Estate Appraiser, called Daron Jay Jr to discuss Medication Adherence per above, Evaluation: Daron Jay Jr verbalized an understanding of the discussion, had no questions and expressed gratitude for the call. Attempts were made to home number (busy signal) and mobile number (not in service). Unable to reach Patient. Patient is connected to [employer] however; all messages have been unread. Health Maintenance Due Topic Date Due SDOH Financial Resource Strain Never done SDOH Transportation Needs Never done Medicare Wellness Visit 09/04/2023 Future Appointments Provider Department Dept Phone 03/03/2024 2:30 PM Vamsi Bonner, [facility] [phone] 05/04/2024 1:00 PM Suri Montague FNP [facility] [phone] 05/06/2024 1:30 PM Odilia Blakely NP [facility], [place] [phone] 08/20/2024 1:00 PM Leigh Austin MD [facility] [phone] Bertha JOY, RN, [facility] Fashion [employer]ying [employer], Managed Care Department [facility] [phone] Bertha Oneil RN [facility] 2023-12-27 16:18:02 Please address and close [facility] Umesh Ponce [facility]2024-06-24 14:27:44 Tried to contact pt on 12/23/23 to schedule a sooner appt. Unable to reach pt due to home phone # having a busy line and mobile number being out of service. Phyllis LindsayMer[facility] Health [facility] The Jewish HospitalFqyyaw5776-89-28 11:00:51 Pt would like to request sooner apt than available at [place]. Pt had to cancel apt scheduled for 12/24/23 due to transportation. Please advise. Future Appointments Date Time Provider Department Center 03/03/2024 2:30 PM Vamsi oBnner DO [facility] 05/04/2024 1:00 PM Suri Montague FNP [facility] ANG DAVE BLE 05/06/2024 1:30 PM Odilia Blakely NP [facility] 08/20/2024 1:00 PM [facility] HospitalVovnan9988-38-15 16:22:28 Images from the original note were not included. Refill approved per cardiology protocol: Anti-coagulants Lsrrlm7812/20/2023 04:12 PM Protocol Details Valid encounter within last 12 months Cr in normal range and within 360 days RBC in normal range and within 360 days PLT in normal range and within 360 days HCT in normal range and within 360 days HGB in normal range and within 360 days Malorie Paula [facility] HospitalKyivmu4936-15-84 16:11:15 Copied from [facility] #[id number]. Topic: Clinical - Order >> Dec 20, 2023 4:08 PM Patient Waterproofer Helper wrote: Daron Jay Jr is a 77 year old male Pt is calling in stating he is completely out of apixaban (ELIQUIS) 5 mg tablet and out of refills. Pt states he is not having symptoms. Please advise. [id number] - [place], [place] - [address] [employer] & [address] [facility] [phone] [facility] HospitalMsbokm8879-26-58 14:55:52 1 refill sent, patient to keep appointment Elizabeth Hester MA 10/09/2023 2:56 PM Elizabeth Hester [facility] HospitalVeirvk2140-59-81 13:48:35 Patient is also on levoalbuterol [facility] HospitalWzooml4282-50-69 13:17:28 Images from the original note were not included. Refill request refilled per ambulatory refill guidelines. Routed to provider for review. Unable to refill per ambulatory refill guidelines. Notes: albuterol 90 mcg/actuation inhaler Sig: INHALE 1 PUFF EVERY 6 HOURS NEEDED FOR WHEEZING AND SHORTNESS OF BREATH Disp: 18 g Refills: 3 Start: 10/09/2023 Class: eRX Non-formulary For: Chronic bronchitis, unspecified chronic bronchitis type Last ordered: 7 months ago (02/15/2023) by Odilia Blakely NP Pulmonology & Allergy: Beta Agonists and Anti-muscarinics Wwbmsj1410/09/2023 12:57 PM Protocol Details Manual Review: If patient not on inhaled steroid and using bronchodilator more than twice weekly for more than 4 weeks or is having a night cough patient should be seen immediately. Manual Review: Staff refilling for allergy - 1 month supply only unless insurance requires a 3 month supply, then 3 month supply approved. Valid encounter within last 12 months fluticasone propionate 50 mcg/actuation nasal spray Sig: Use 2 Sprays in each nostril in the morning. Disp: 48 g Refills: 3 Start: 10/09/2023 Class: eRX Non-formulary For: Allergic rhinitis Last ordered: 7 months ago (02/14/2023) by Odilia Blakely NP Allergy Fhmlsv3110/09/2023 12:57 PM Protocol Details Valid encounter within last 12 months To be filled at: [id number] [place] [address] [address] [facility] [employer] Last Refilled: 01/2023 Recent Visits Date Type Provider Dept 09/27/23 Office Visit Suri Conteh FNP [facility] Family Medicine 08/06/23 Office Visit Suri Conteh FNP [facility] 02/15/23 Office Visit Odilia Blakely NP [facility] 09/03/22 Office Visit Odilia Blakely NP [facility] 09/03/22 Office Visit Odilia Blakely NP [facility] Showing recent visits within past 540 days with a meds authorizing provider and meeting all other requirements Future Appointments Date Type Provider Dept 11/04/23 Appointment Odilia Blakely NP [facility] Family Medicine Showing future appointments within next 150 days with a meds authorizing provider and meeting all other requirements [facility] - Wmvyfj3296-71-37 12:55:24 Patient calling for refills of albuterol inhaler and Flonase which are prescribed by his PCP. DEBRA with KASSANDRA Chan on 09/27/23 Routing to primary care clinic for review. [facility] HospitalUzccqd3112-07-69 14:19:39 3rd attempt to contact patient. Will send letter. Left voicemail. PSS if patient returns call please let him know Dr. Austin reviewed labs there were no concerns from cardiac standpoint. Please ask if he is needing any refills of heart medications? If he does need refills please encounter to clinic staff. Thank you Leigh Austin MD P Cardiology Nurse Labs are good for refills. Yue Robb [facility] RichmondYzihoc2601-87-98 19:06:20 Daron Jay Jr is a 77 year old male Pt is returning a call from the nurse he just wanted to convey the message that he will koby back tomorrow Elisha MedleyMercy Health [facility] The Jewish HospitalUnrjxv0620-67-04 10:38:23 Images from the original note were not included. Attempted to contact patient to discuss lab results, no answer I left a detailed message per Dr Austin: Leigh Austin MD P Cardiology Nurse Labs are good for refills. And if patient is needing refills to give us a call back. Malorie Paula MAMercy [facility] Jewish HospitalIdsvob4203-43-44 07:46:09 Images from the original note were not included. Office attempted to contact patient with lab results on 10.04.2023: Malorie Paula MA 10/04/23 10:30 AM Note Attempted to contact patient to discuss lab results, no answer I left a detailed message per Dr Austin: Leigh Austin MD P Cardiology Nurse Labs are good for refills. And if patient is needing refills to give us a call back. Delmy Burger RNMercy Health – The Jewish HospitalGulsro4934-89-45 13:52:46 Copied from [facility] #[id number]. Topic: Customer Service - Missed Call from Provider >> Oct 04, 2023 1:50 PM Patient Waterproofer Helper wrote: Daron Jay Jr is a 77 year old male Pt was calling back to speak with nurse about lab work Please advise Maury DuranMercy Health – The Jewish HospitalLeytpw5506-67-92 10:30:06 Images from the original note were not included. Attempted to contact patient to discuss lab results, no answer I left a detailed message per Dr Austin: Leigh Austin MD P Cardiology Nurse Labs are good for refills. And if patient is needing refills to give us a call back. Malorie Paula MAMercy Health – The Jewish HospitalAmhjmg1865-65-69 13:45:00 Images from the original note were not included. Venipuncture collection performed by clean technique on the left anticubitus. Total of 1 attempts were made. Slight pressure and a bandage/dressing were applied to the site(s). The patient experienced no complications. The following specimens were processed according to instructions and sent to [facility] laboratories per lab order on 09/27/2023 : LT BLUE SST 1 RED LAV 2 PPT DK GREEN (LiHep) DK GREEN (SodH) GUTIÉRREZ DK BLUE (K2) DK BLUE (S) ACD Blood Culture NIPT/NTD [place] [id number] 11:43:35 Results were discussed with patient during office visit on 08/21/23 Yue Robb RNUTMB - [id number] 10:22:12 Received refill request for: Medication: Requested Prescriptions Pending Prescriptions Disp Refills apixaban (ELIQUIS) 5 mg tablet 180 tablet 1 Sig: Take 1 tablet by mouth every morning and evening. sotaloL 80 mg tablet 90 tablet 3 Sig: Take 0.5 tablets by mouth every 12 (twelve) hours. Requested Prescriptions Pending Prescriptions Disp Refills apixaban (ELIQUIS) 5 mg tablet 180 tablet 1 Sig: Take 1 tablet by mouth every morning and evening. Anti-coagulants Passed - 09/12/2023 9:13 AM Passed - Valid encounter within last 12 months Recent Visits Date Type Provider Dept 08/21/23 Office Visit Leigh Austin MD [facility] Cardiology Faculty Showing recent visits within past 365 days and meeting all other requirements Future Appointments Date Type Provider Dept 08/20/24 Appointment Leigh Austin MD [facility] Cardiology Faculty Showing future appointments within next 365 days and meeting all other requirements Passed - Cr in normal range and within 360 days CREATININE Date Value Ref Range Status 08/06/2023 0.77 0.60 - 1.25 mg/dL Final 01/19/2013 0.80 0.60 - 1.25 MG/DL Final Passed - RBC in normal range and within 360 days RBC x106 Date Value Ref Range Status 05/02/2011 4.38 (L) 4.40 - 5.65 /CMM Final RBC Date Value Ref Range Status 08/06/2023 4.27 4.26 - 5.52 10*6/?L Final Passed - PLT in normal range and within 360 days PLT x103 Date Value Ref Range Status 05/02/2011 195 150 - 400 /CMM Final PLT Date Value Ref Range Status 08/06/2023 241 150 - 328 10*3/?L Final Passed - HCT in normal range and within 360 days HCT Date Value Ref Range Status 08/06/2023 40.5 38.4 - 49.3 % Final 05/02/2011 39.4 (L) 40.0 - 50.0 % Final Passed - HGB in normal range and within 360 days THB Date Value Ref Range Status 08/04/2004 12.0 (L) 13.5 - 18.0 G/DL Final HGB Date Value Ref Range Status 08/06/2023 12.8 12.2 - 16.4 g/dL Final 05/02/2011 13.1 (L) 13.5 - 17.0 G/DL Final sotaloL 80 mg tablet 90 tablet 3 Sig: Take 0.5 tablets by mouth every 12 (twelve) hours. Cardiovascular: Anti-Arrhythmic Agents Passed - 09/12/2023 9:13 AM Passed - Valid encounter within last 12 months Recent Visits Date Type Provider Dept 08/21/23 Office Visit Leigh Austin MD [facility] Cardiology Faculty Showing recent visits within past 365 days and meeting all other requirements Future Appointments Date Type Provider Dept 08/20/24 Appointment Leigh Austin MD [facility] Faculty Showing future appointments within next 365 days and meeting all other requirements Medication Last filled: 10/18/2022 & 12/26/2022 Provider Note: Assessment/Plan: ICD-10-CM 1. Heart failure with preserved ejection fraction, unspecified HF chronicity I50.30 2. Typical atrial flutter I48.3 3. JAIME (obstructive sleep apnea) G47.33 4. Obesity (BMI 30-39.9) E66.9 5. Essential hypertension I10 EKG--08/21/2023--reviewed and discussed with patient Sinus bradycardia with PAC, HR 51 bpm, RBBB Afib/Atrial flutter with RVR--s/p cardioversion in 01/2018. Now on sotalol 40 mg BID. EKG showed normal QTc. Off amiodarone. Continue Eliquis. Rectal bleeding has stopped. HGB 08/22/2022--13.2 EKG--09/14/2020--reviewed by pr Sinus bradycardia with RBBB, lateral TWI, QTc 452 msec HFrEF--Volume status is good. No significant edema. On lasix daily with self adjusting dosage. Due to breast tenderness we stopped spironolactone. Stopped lisinopril due to low BP. Seen by HF/transplant team. LVEF has improved. Echocardiogram in August 2023 showed ejection fraction 40 to 45%. Recommend to try Jardiance 10 mg daily and eplerenone 25 mg daily. BMP in 2 weeks. JAIME--On C-PAP. Obesity--discussed diet, exercise and weight loss. RTC 12 months Recent Visits Date Type Provider Dept 08/21/23 Office Visit Leigh Austin MD [facility] Showing recent visits within past 365 days and meeting all other requirements Future Appointments Date Type Provider Dept 08/20/24 Appointment Leigh Austin MD [facility] Cardiology Faculty Showing future appointments within next 365 days and meeting all other requirements Refilled approval sent to: Pharmacy: [id number] - [place], [place] - [address] AT [facility] & [address] [facility] [phone] [facility] (MAIL [facility] [facility] - [place], [place] - [address] AT [place] & [place] [address] [facility] [phone] [facility] - [place], [place] - [address] [facility] [address] Refilled based on current protocol and last office visit note. Alexandra Ortega 09/12/2023 10:22 AM Hospital Outpatient Visit on 08/19/2023 Component Date Value Height 08/19/2023 72 Weight 08/19/2023 288 Systolic BP 08/19/2023 123 Diastolic BP 08/19/2023 77 Heart Rate 08/19/2023 71 MR max PG 08/19/2023 62.20 MR max genie 08/19/2023 466.10 Ao root diam 08/19/2023 3.60 Mr max genie 08/19/2023 466.1 Aortic root 08/19/2023 3.6 Ao root annulus 08/19/2023 3.6 BSA 08/19/2023 2.49 LVOT diameter 08/19/2023 2.30 LVOT area 08/19/2023 4.10 LVIDD 08/19/2023 6.90 Left Ventricular End Philomena* 08/19/2023 244.3 IVS 08/19/2023 1.29 Interventricular Septum * 08/19/2023 1.29 LVPWD 08/19/2023 1.19 PW 08/19/2023 1.19 EF(Teich) 08/19/2023 46.00 LVIDS 08/19/2023 5.20 Left Ventricular End Sys* 08/19/2023 131.9 FS 08/19/2023 24 EF - 2D 08/19/2023 46.00 MV E-F slope 08/19/2023 71.50 MV Peak E Genie 08/19/2023 67.1 MV Peak A Genie 08/19/2023 54.5 E/A ratio 08/19/2023 1.23 MV valve area p 1/2 meth* 08/19/2023 2.90 MV dec slope 08/19/2023 259.20 MV P1/2t max genie 08/19/2023 67.10 LVOT stroke volume 08/19/2023 77.10 LVOT peak genie 08/19/2023 87.0 LVOT mn grad 08/19/2023 1.4 AV LVOT peak gradient 08/19/2023 3.0 LVOT peak VTI 08/19/2023 18.6 LV V1 mean 08/19/2023 52.90 Aortic valve mean veloci* 08/19/2023 96.4 Ao peak genie 08/19/2023 150.8 Ao VTI 08/19/2023 30.3 AV area by cont VTI 08/19/2023 2.5 AV area peak genie 08/19/2023 2.4 Ao max PG 08/19/2023 9.10 AV peak gradient 08/19/2023 9.1 AV valve area 08/19/2023 2.50 AV mean gradient 08/19/2023 4.3 LAV(MOD-sp4) 08/19/2023 64.30 LA Volume Index (BP) 08/19/2023 25.9 LA volume (BP) 08/19/2023 64.5 LAV(MOD-sp2) 08/19/2023 57.00 TR Peak Genie 08/19/2023 146.2 Triscuspid Valve Regurgi* 08/19/2023 8.5 Aluminum Polisher Visit on 08/06/2023 Component Date Value VIT D 25OH 08/06/2023 29 NA 08/06/2023 139 K 08/06/2023 4.3 CL 08/06/2023 105 CO2 TOTAL 08/06/2023 28 AGAP 08/06/2023 6 BUN 08/06/2023 16 GLUCOSE 08/06/2023 101 CREATININE 08/06/2023 0.77 TOTAL BILI 08/06/2023 0.5 CALCIUM 08/06/2023 9.2 T PROTEIN 08/06/2023 7.2 ALBUMIN 08/06/2023 3.8 ALK PHOS 08/06/2023 61 ALTv 08/06/2023 18 AST(SGOT) 08/06/2023 28 eGFR 08/06/2023 92.8 WBC 08/06/2023 8.09 RBC 08/06/2023 4.27 HGB 08/06/2023 12.8 HCT 08/06/2023 40.5 MCV 08/06/2023 94.8 MCH 08/06/2023 30.0 MCHC 08/06/2023 31.6 RDW-SD 08/06/2023 47.5 RDW-CV 08/06/2023 13.7 PLT 08/06/2023 241 MPV 08/06/2023 10.1 NRBC/100 WBC 08/06/2023 0.0 NRBC [id number]/06/2023 <0.01 GRAN MAT (NEUT) % 08/06/2023 67.4 IMM GRAN % 08/06/2023 0.40 LYMPH % 08/06/2023 19.2 MONO % 08/06/2023 8.8 EOS % 08/06/2023 3.6 BASO % 08/06/2023 0.6 GRAN MAT x103(ANC) 08/06/2023 5.46 IMM GRAN [id number]/06/2023 0.03 LYMPH [id number]/06/2023 1.55 MONO [id number]/06/2023 0.71 EOS [id number]/06/2023 0.29 BASO [id number]/06/2023 0.05 URIC ACID 08/06/2023 7.0 NT-proBNP 08/06/2023 37 Office Visit on 08/06/2023 Component Date Value FREE T4 08/06/2023 0.94 HGB A1C 08/06/2023 5.9 (H) HCV Ab 08/06/2023 Presumptive Positive HCV Semi-Quantitative 08/06/2023 1.94 CHOL 08/06/2023 138 HDL 08/06/2023 46 HDLC RATIO 08/06/2023 3.0 TRIG 08/06/2023 84 LDL CHOL 08/06/2023 75 VLDL 08/06/2023 17 APPEARANCE 08/06/2023 Clear COLOR 08/06/2023 Emy (A) PH 08/06/2023 6.0 SP GRAVITY 08/06/2023 1.025 GLU U QUAL 08/06/2023 Normal BLOOD 08/06/2023 Negative KETONES 08/06/2023 5 mg/dL (A) PROTEIN 08/06/2023 Negative UROBILIN 08/06/2023 4.0 mg/dL (A) BILIRUBIN 08/06/2023 Negative NITRITE 08/06/2023 Negative LEUK DANN 08/06/2023 Negative RBC/HPF 08/06/2023 2 WBC/HPF 08/06/2023 <1 BACTERIA 08/06/2023 Few (A) MUCOUS 08/06/2023 Slight (A) SQ EPITH 08/06/2023 3 TSH 08/06/2023 1.79 PSA 08/06/2023 2.56 HCV Quantitative Interpr* 08/06/2023 Not Detected Alexandra OrtegaMercy Health [facility] The Jewish HospitalHeedmu5785-40-12 09:32:52 Images from the original note were not included. Eplerenone refilled on 08/21/23 Cardiovascular: Diuretics - Eplerenone Ufidsr6308/22/2023 09:28 AM Protocol Details Valid encounter within last 12 months Cr in normal range and within 180 days K in normal range and within 180 days LOCATOR Yue Robb RNMercy Health – The Jewish HospitalUzwqfw3568-20-05 14:45:00 Images from the original note were not included. Venipuncture collection performed by clean technique on the right anticubitus. Total of 2 attempts were made. Slight pressure and a bandage/dressing were applied to the site(s). The patient experienced no complications. The following specimens were processed according to instructions and sent to [facility] laboratories per lab order on 08/06/2023 : LT BLUE SST 3 RED LAV 2 PPT DK GREEN (LiHep) DK GREEN (SodH) GUTIÉRREZ DK BLUE (K2) DK BLUE (S) ACD Blood Culture NIPT/NTD Patient has been identified by and name and was provided with cup, antiseptic towelette, and clean catch instructions. 1 urine specimen(s) sent. Unpreserved 1 Urine Culture Aptima tube Other urine [place] [id number] 08:12:34 [email or web address] will put into Dr. Austin folder for review. LOCATOR Serenity Evans MAMercy [facility] The Jewish HospitalSiypti7840-24-98 09:00:39 Pt scheduled for July. LOCATOR Miriam CastellanosMercy Health – The Jewish HospitalYwouzw4408-60-03 11:28:59 1. (HFpEF) heart failure with preserved ejection fraction F/u with prison officer for med adjustment Patient needs lab and visit for future refills - furosemide 40 mg tablet; TAKE 1 TABLET BY MOUTH ON WAKING AND 1 TABLET SIX HOURS LATER Dispense: 30 tablet; Refill: 0 [facility]2023-12-15 20:55:50 Images from the original note were not included. Last OV: 02/15/2023 with Odilia Blakely Last Refill: 09/26/[address] Perez Last Labs Pertaining to Med: CREATININE Date Value 08/22/2022 0.89 mg/dL 01/19/2013 0.80 MG/DL K Date Value 08/22/2022 4.5 mmol/L 01/19/2013 4.4 MMOL/L Future Appt: Future Appointments Provider Department Dept Phone 08/05/2023 2:00 PM [facility] ECHO [facility] 1 [facility] Echocardiograph/Vascular Lab, [place] [phone] 08/21/2023 1:00 PM Leigh Austin MD [facility] Cardiology, [facility] [phone] Routed to provider for review. Unable to refill per ambulatory refill guidelines. Name from pharmacy: FUROSEMIDE 40MG TABLETS Will file in chart as: FUROSEMIDE 40 mg tablet Sig: TAKE 1 TABLET BY MOUTH ON WAKING AND 1 TABLET SIX HOURS LATER Disp: 180 tablet Refills: 3 (Pharmacy requested: Not specified) Start: 06/14/2023 Class: eRX For: (HFpEF) heart failure with preserved ejection fraction Last ordered: 8 months ago (09/26/2022) by Saskia Perez MD Last refill: 04/01/2023 Rx #: [id number]|0|1 Cardiovascular: Loop Diuretics Pbiebg4906/14/2023 05:46 AM Protocol Details K in normal range and within 180 days Cr in normal range and within 180 days Valid encounter within last 12 months LOCATOR Dominique Sanz [facility] RichmondQymwcz0429-36-47 16:48:50 Patient discharged given written and verbal instructions. Verbalized understanding. Follow up as needed. Efren Schneider [place] [id number] 15:04:41 Pt to ER CO swelling to R wrist. Pt states he does not know what happened to wrist. Hx of pseudogout in R wrist. Kristie Crum [place] 408203-08-30 12:57:38 Refill request for tamsulosin 0.4 mg [facility] HospitalZmdsoj7478-04-87 15:57:00 Orthopedic Nurse Documentation Called and spoke to patient who reports that his right wrist is currently much improved after having a flare-up on 01/22/23, went to [place] ED and received pain med and steroid. Wants to wait to come in for evaluation at this time. Provider: Katherin Pena MD Date of Surgery (if applicable):10/30/2021 Total Knee Arthroplasty - Right Preferred Pharmacy: [id number] [address] [facility] & [address] Insurance: Payor: [facility] / Plan: [facility] DUAL COMP HMO D SNP / Product Type: Medicare Adv HMO / Recent/Future Schedule Appointments at the time of this encounter Recent Visits No visits were found meeting these conditions. Showing recent visits within past 365 days and meeting all other requirements Future Appointments Date Type Provider Dept 03/27/23 Appointment Katherin Pena MD [facility] Showing future appointments within next 365 days and meeting all other requirements Elizabeth Hernandez RNMercy Health – The Jewish HospitalCoyhzd6132-61-30 12:37:03 Daron Jay Jr is a 77 year old male Pt is requesting to speak with clinic for clarification on what will happen during visit on 03/27 and if any procedure will be done that day. Please call pt back at [phone]. Fide LópezMercy Health – The Jewish HospitalXgyyyu8521-49-06 16:08:00 Pt given printed and verbal discharge instructions regarding pseudogout and right wrist pain, encouraged hydration, 0 Prescriptions provided Pt verbalized understanding of instructions, pt awake alert oriented, resp reg unlabored, skin w/d,color appropriate for race, moves all ext well,pt encouraged to follow up with pcp. Advised to seek medical attention for new/prolonged/worsening of symptoms, Symptoms improved. No adverse reaction to meds given in ER noted upon discharge Awake, alert oriented, resp reg unlabored, skin w/d, pt leaving wheelchair, in no apparent distress, Amy Smith [facility] RichmondYptxjw1142-72-48 13:54:22 Pt arrived with c/o right wrist pain x5 days. Denies any injury. Yasmin Sumner [facility]
--- NOTE | 2024-05-27 19:20 | RAD REPORT ---
EXAM: CT brain without contrast HISTORY: PAIN COMPARISON: None TECHNIQUE: Multiple contiguous axial images were obtained and a CT of the brain without contrast. Sag ittal and coronal reformats were performed. One or more of the following dose reduction techniques were used: Automated exposure control, adjust ment of the mA and/or kV according to patient size, and/or iterative reconstruction. FINDINGS: No evidence of hydrocephalus, intracranial hemorrhage, or extra-axial fluid collection. The brain is normal in morphology. No evidence of midline shift or areas of brain edema. The calvarium is intact. The visualized paranasal sinuses and mastoid air cells are essentially clear . IMPRESSION: No evidence of acute intracranial abnormality. EXAM: CT of the cervical spine without contrast HISTORY: Neck pain, injury PAIN TECHNIQUE: Multiple contiguous axial images were obtained in a CT of the cervical spine without contr ast. Sagittal and coronal reformats were performed. FINDINGS: The vertebral bodies demonstrate normal height and alignment. Mild lower cervical degenerat silvia changes.. No degenerative changes are present. No prevertebral soft tissue swelling is seen. The posterior facets are well aligned. Normal alignment of the skull base with the cervical spine is seen. The lung apices are unremarkable. IMPRESSION: No evidence of acute osseous abnormality of the cervical spine.
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
--- NOTE | 2024-05-27 20:05 | RAD REPORT ---
EXAMINATION: XR RIGHT KNEE CLINICAL INDICATION: Male, 78 years old. PAIN TECHNIQUE: Multiple views of the right knee were obtained. COMPARISON: No prior exam. FINDINGS: Right total knee arthroplasty. No fracture or joint effusion.
--- NOTE | 2024-05-27 20:06 | RAD REPORT ---
EXAMINATION: XR RIGHT SHOUDLER CLINICAL INDICATION: Male, 78 years old. PAIN RIGHT TECHNIQUE: Multiple views of the right shoulder were obtained. COMPARISON: No prior exam. FINDINGS: High riding humeral head likely indicates underlying rotator cuff tear. Mild offset at the AC joint could represent grade 1 separation, age indeterminate. No fracture seen.
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
[2024-05-27] MEDS ORDERED: HYDROCODONE/APAP 7.5/325 MG TAB ONE (20:53)
[2024-05-27 21:24] VITALS: BP 117/84; TEMP 97.2; O2SAT 97
== END 2024-05-27 21:01 | disposition home or self-care (01) ==
LOC: ER 18:05
DX: S09.90XA Unspecified injury of head, initial encounter (principal); S80.01XA Contusion of right knee, initial encounter; M25.511 Pain in right shoulder; M25.551 Pain in right hip
CPT/HCPCS: 70450; 71250; 72125; 74176; 99283